=== PATIENT | female | born 1955 | race African-American/Black ===

== ENCOUNTER 2020-08-21 16:20 | Emergency (ER) | payer OTHER, SELFPAY ==
--- NOTE | ~2020-08-21 | XR_ITS ---
EXAMINATION: XR knee LT min 4V EXAM DATE: 08/21/2020 16:54 INDICATION: PAIN med/post Lt knee; hit knee on footboard 3 days ago. TECHNIQUE: Left knee frontal, crosstable lateral, orthogonal oblique projections for interpretation. There is no prior study for comparison. FINDINGS: No evidence osteochondral defect or joint body in the left knee joint. There are no acute fractures or dislocations identified. There is no subcutaneous gas. Mild soft tissue swelling arou nd the knee anteriorly medially and laterally. There are no radiopaque foreign bodies. IMPRESSION: 1. XR knee LT min 4V exam without acute osseous findings. 2. Soft tissue swelling. Reviewed, dictated and finalized at location A. ATRIC CLINICAL DIETICIAN
--- NOTE | 2020-08-21 16:22 | ED.EXTPRO ---
HPI - Extremity Problem General Chief complaint: Extremity Injury, Lower Stated complaint: lt knee injury Source: patient and RN notes reviewed Mode of arrival: ambulatory Limitations: no limitations Related Data Allergies Allergy/AdvReac Type Severity Reaction Status Date / Time No Known Allergies Allergy Verified 08/21/20 16:35 Review of Systems Review of Systems: Narrative: CONSTITUTIONAL: Denies malaise, chills, sweats, or fever. EYES: Denies visual changes, redness, or discharge. ENT: Denies rhinorrhea, congestion, sinus pain, otalgia or sore throat. CARDIOVASCULAR: Denies chest pain, palpitations, or edema. RESPIRATORY: Denies cough or dyspnea. GASTROINTESTINAL: Denies abdominal pain, nausea, vomiting, diarrhea, bloody, or mucous stools. GENITOURINARY: Denies dysuria or hematuria. SKIN: Denies rash or itching. MUSCULOSKELETAL: Denies back pain, joint pain, or myalgia. NEUROLOGIC: Denies numbness, weakness, or headache. PSYCHIATRIC: Denies anxiety or depression. All systems reviewed & are unremarkable except as noted in HPI and below PMFSH Family History Family History Other Cerebrovascular accident Diabetes mellitus Family history of malignant neoplasm Hypertension Social History Social History Smoking status: Never smoker Alcohol intake: never Comments At time of signature, agree with nursing past medical, surgical, social and family history. There is no relevant family history pertinent to the presenting complaint Exam Narrative: Exam Narrative: GENERAL: Well-appearing, well-nourished, and in no acute distress. HEAD: Normocephalic, atraumatic. EYES: PERRLA, conjunctivae clear NECK: Supple. CHEST: Speaks in full sentences. No respiratory distress. HEART: Regular rate and rhythm. Normal and equal peripheral pulses. EXTREMITIES: [Xxx] has normal strength and sensation, normal range of motion. No edema or ecchymosis. 5/5 strength with [xxx] flexion and extension. Normal sensation with sensitivity to light touch and pain. No point tenderness. No open wounds, no skin tenting, no devitalized tissue or atrophy, no trophic changes, no obvious deformity, alignment normal, nearby joints and structures intact. Distal pulses palpable and equal bilaterally, skin warm, dry, pink. Capillary refill less than 3 seconds. SKIN: Warm, dry, no rash. NEURO: Alert and oriented x3. PSYCH: Normal mood and affect Course Course Emergency Course: Patient is aware of diagnosis, understands and agrees to treatment plan. Anticipatory guidance given. Patient agrees to follow-up as directed and is aware of reasons to seek care at the emergency department. Portions of this record may have been created with voice recognition software Vital Signs Vital signs: Reviewed. MDM - Extremity (Nontraumatic) MDM Narrative Medical decision making narrative: Patients injury and/or pain is consistent with musculoskeletal etiology. No signs of neurological or vascular compromise on exam. Compartments and tissues are soft without signs of compartment syndrome. Pain is felt appropriate for further evaluation on an outpatient basis. Critical Care Time Critical Care Time Critical Care Time: No Discharge Plan Discharge Prescriptions: No Action (DME) lancets [OneTouch Delica Lancets] 30 gauge misc See Rx Instructions .ROUTE .MEDSUPPLY Qty: 100 RF: 4 blood sugar diagnostic [OneTouch Verio test strips] Strip See Rx Instructions .ROUTE .COMPLEX Qty: 100 RF: 4 hydrochlorothiazide 25 mg tablet 25 mg PO DAILY Qty: 90 RF: 1 metformin 500 mg tablet 500 mg PO BID Qty: 180 RF: 4 simvastatin 20 mg tablet See Rx Instructions .ROUTE .COMPLEX Qty: 90 RF: 4 meloxicam 7.5 mg tablet See Rx Instructions .ROUTE .COMPLEX Qty: 90 RF: 0 amlodipine 5 mg tablet See Rx Instructions .ROUTE .COMPLEX Qty: 90
[2020-08-21 16:25] VITALS: BP 133/72; PULSE 104; RESP 20; TEMP 36.7; O2SAT 100
[2020-08-21 16:35] VITALS: BP 133/72; PULSE 104; RESP 20; TEMP 36.7; O2SAT 100
--- NOTE | 2020-08-21 16:41 | ED.LOWEXIN ---
HPI - Extremity Injury (Lower) General Chief Complaint: Extremity Injury, Lower Stated Complaint: lt knee injury Time Seen by Provider: 08/21/20 16:32 Source: patient and RN notes reviewed Mode of arrival: ambulatory Limitations: no limitations History of Present Illness HPI Narrative: 65-year-old female presents with concern for left knee injury. Reports on Friday she hit her knee on the footboard of her bed causing pain. Reports no intervention for the pain. Reports today after working on her feet all day the pain worsened, and is radiating to the back of her left lower leg. She reports mild left knee swelling. She denies any calf swelling, calf redness, calf warmth. Denies history of blood clots or smoking. Reports a history of high blood pressure and diabetes. Denies any decreased strength, range of motion, sensation in the knee or leg. MD complaint: knee injury Related Data Allergies Allergy/AdvReac Type Severity Reaction Status Date / Time No Known Allergies Allergy Verified 08/21/20 16:35 Review of Systems Review of Systems: Narrative: CONSTITUTIONAL: Denies malaise, chills, sweats, or fever. CARDIOVASCULAR: Denies chest pain, palpitations, or edema. RESPIRATORY: Denies cough or dyspnea. SKIN: Denies lacerations, abrasions. Denies calf redness, swelling, warmth, tenderness MUSCULOSKELETAL: Reports left knee pain left posterior lower leg pain NEUROLOGIC: Denies numbness, weakness All systems reviewed & are unremarkable except as noted in HPI and below PMFSH Family History Family History Other Cerebrovascular accident Diabetes mellitus Family history of malignant neoplasm Hypertension Social History Social History Smoking status: Never smoker Alcohol intake: never Comments At time of signature, agree with nursing past medical, surgical, social and family history. There is no relevant family history pertinent to the presenting complaint Exam Narrative: Exam Narrative: GENERAL: Well-appearing, well-nourished, and in no acute distress. HEAD: Normocephalic, atraumatic. EYES: PERRLA, conjunctivae clear NECK: Supple. CHEST: Speaks in full sentences. No respiratory distress. HEART: Regular rate and rhythm. Normal and equal peripheral pulses. EXTREMITIES: Left knee has normal strength and sensation, normal range of motion. No edema or ecchymosis. 5/5 strength with knee flexion and extension. Normal sensation with sensitivity to light touch and pain. No point tenderness. No open wounds, no skin tenting, no devitalized tissue or atrophy, no trophic changes, no obvious deformity, alignment normal, nearby joints and structures intact. Distal pulses palpable and equal bilaterally, skin warm, dry, pink. Capillary refill less than 3 seconds. Left posterior lower leg has no warmth, swelling, erythema, tenderness SKIN: Warm, dry, no rash. NEURO: Alert and oriented x3. PSYCH: Normal mood and affect Course Course Emergency Course: Discussed with patient limited diagnostic capability at the [facility], discussed symptoms of blood clot and need for further work-up in the emergency room. Through shared decision-making, patient does not choose to seek further evaluation in the emergency room, rather to evaluate knee pain. Patient understands reasons to go the emergency department and follow-up with her primary care provider. Patient is aware of diagnosis, understands and agrees to treatment plan. Anticipatory guidance given. Patient agrees to follow-up as directed and is aware of reasons to seek care at the emergency department. Portions of this record may have been created with voice recognition software Vital Signs Vital signs: Vital Signs Temperature 98.0 F 08/21/20 16:25 Pulse Rate 104 H 08/21/20 16:25 Respiratory Rate 20 08/21/20 16:25 Blood Pressure 133/72 08/21/20 16:25 Pulse Oximetry 1
== END 2020-08-21 17:10 | disposition home or self-care (01) ==
PROVIDERS: Emergency Provider Nurse Practitioner; PCP Internal Medicine
DX: S89.92XA Unspecified injury of left lower leg, initial encounter (principal); W22.8XXA Striking against or struck by other objects, initial encounter; I10 Essential (primary) hypertension; E11.9 Type 2 diabetes mellitus without complications
CPT/HCPCS: 73564; 99213; G0463

== ENCOUNTER 2020-11-03 01:25 | Emergency (ER) | payer OTHER, SELFPAY ==
--- NOTE | ~2020-11-03 | XR_ITS ---
EXAMINATION: XR chest 1V portable DATE: 11/03/2020 01:58 INDICATION: Midsternal chest pain TECHNIQUE: frontal view of the chest was obtained. COMPARISON: Chest radiograph dated 10/21/2018 FINDINGS: The lungs remain clear with no focal airspace opacities, pulmonary edema, pleural effusion or pneumot horax. The cardiomediastinal silhouette is normal. Mild thoracic spondylosis. IMPRESSION: 1. No acute cardiopulmonary disease. Reviewed, dictated and finalized at location A.
[2020-11-03 01:31] VITALS: BP 177/88; PULSE 79; RESP 18; TEMP 36.7; O2SAT 100
--- NOTE | 2020-11-03 01:45 | ECG_ITS ---
Measurements Intervals [place] Rate: 78 P: 62 OR: 160 QRS: 16 QRSD: 87 T: 46 QT: 366 QTc: 417 Interpretive Statements SINUS RHYTHM CONSIDER INFERIOR INFARCT, AGE INDETERMINATE BASELINE ARTIFACT- V4-V6 ABNORMAL ECG Electronically Signed On 11-03-2020 6:46:37 CDT by Good Ramos D.O.
[2020-11-03 01:57] LABS: Basophils Percent Auto 0.5 % (0.2-1.2); Eosinophils Absolute Auto 0.6 K/mm3 (0-0.3); Eosinophils Percent Auto 6.4 % (0-4.4); Hematocrit 35.6 % (37.0-47.0); Immature Granulocyte Absolute 0.04 K/mm3 (0.00-0.031); Immature Granulocyte Percent A 0.5 % (0-0.5); Lymphocytes Absolute Auto 2.79 K/mm3 (0.9-3.2); Lymphocytes Percent Auto 32.6 % (18.3-44.2); Mean Corpuscular HGB Conc 30.9 g/dl (32-36); Mean Corpuscular Hemoglobin 22.6 pg (26-34); Mean Corpuscular Volume 73.3 fl (80-100); Mean Platelet Volume 11.6 fl (7.4-10.4); Monocytes Absolute Auto 0.5 K/mm3 (0.1-0.6); Monocytes Percent Auto 5.5 % (2.6-8.5); Neutrophils Absolute Auto 4.7 K/mm3 (1.3-6.7); Neutrophils Percent Auto 54.5 % (45.5-73.1); Platelet Count Result 252 k/mm3 (150-375); Red Blood Count 4.86 M/mm3 (4.2-5.4); Red Cell Distribution Width 15.4 % (11.5-14.5); White Blood Count 8.6 K/mm3 (4.5-10.0)
[2020-11-03] MEDS: ASPIRIN 81 MG CHEWABLE TABLET 324 MG PO (02:03)
[2020-11-03 02:11] LABS: INR 0.9; Prothrombin Time 12.8 Seconds (11.1-14.7)
[2020-11-03 02:12] LABS: Partial Thromboplastin Time 27.5 SECONDS (22.3-36.8)
[2020-11-03 02:14] LABS: D Dimer 0.28 ug/mL (<0.48)
[2020-11-03 02:15] LABS: Alanine Aminotransferase 15 U/L (4-35); Albumin Level 4.6 g/dL (3.5-5.1); Alkaline Phosphatase 68 U/L (38-126); Anion Gap 7 mmol/L (8-16); Aspartate Amino Transferase 26 U/L (14-36); Bilirubin,Total 0.1 mg/dL (0.2-1.3); Blood Urea Nitrogen 17 mg/dL (7-17); Calcium 10.1 mg/dL (8.4-10.2); Carbon Dioxide 31 mmol/L (22-30); Chloride 103 mmol/L (98-107); Estimated CRCL calculation 58 ml/min; Estimated Glomerular Filt Rate > 60; Glucose 126 mg/dL (65-105); Lipase 86 U/L (23-300); Potassium 3.5 mmol/L (3.4-5.0); Sodium 141 mmol/L (137-145)
[2020-11-03 02:27] LABS: NT Pro B Type Natriuretic Pept 44 pg/mL (5-100); Troponin I < 0.012 ng/mL (0.000-0.034)
--- NOTE | 2020-11-03 02:35 | ED.GENADULT ---
HPI - General Adult General Chief complaint: Chest Pain Stated complaint: back pain Time Seen by Provider: 11/03/20 01:36 History of Present Illness HPI narrative: Patient 65-year-old female presents to emergency department with chief complaint of back pain and chest pain. Patient reports that she has been having discomfort in her back more on her left shoulder blade area radiates to her chest. Patient states this been going on for several days and reports that tonight it got a little bit worse and would not allow her to sleep. Patient reports that the pain is not improved by anything nor is it worsened by anything. The patient reports she is a diabetic and hypertensive reports that she has had a stress test a few years ago that that was negative and did not require a cardiac catheterization afterwards Related Data Allergies Allergy/AdvReac Type Severity Reaction Status Date / Time No Known Allergies Allergy Verified 11/03/20 01:35 Review of Systems Review of Systems: Narrative: A 10 system review of systems was completed on the patient and is negative except for what is stated in the HPI. Nursing and ancillary documentation was reviewed. [facility] Family History Family History Other Cerebrovascular accident Diabetes mellitus Family history of malignant neoplasm Hypertension Social History Social History Smoking status: Never smoker Alcohol intake: never Gender identity (if verbalized by the patient): Female Exam Narrative: Exam Narrative: GENERAL: Well-appearing, well-nourished, and in no acute distress. HEAD: Normocephalic, atraumatic. EYES: PERRLA and EOMI. ENT: Nares clear, no rhinorrhea or epistaxis. Mucous membranes moist. NECK: Supple. CHEST: Clear to auscultation. No respiratory distress. HEART: Regular rate and rhythm. No murmur heard. Normal peripheral pulses. ABDOMEN: Soft, nontender, nondistended, normal active bowel sounds. EXTREMITIES: Normal range of motion. No edema. SKIN: Warm, dry, no rash. NEURO: No focal deficits. Alert and oriented x3. PSYCH: Normal mood and affect. Course Vital Signs Vital signs: Vital Signs Temperature 36.7 C 11/03/20 01:31 Pulse Rate 79 11/03/20 01:31 Respiratory Rate 18 11/03/20 01:31 Blood Pressure 177/88 H 11/03/20 01:31 Pulse Oximetry 100 11/03/20 01:31 Temperature 36.7 C 11/03/20 01:31 Pulse Rate 63 11/03/20 03:41 Respiratory Rate 20 11/03/20 03:41 Blood Pressure 125/69 11/03/20 03:41 Pulse Oximetry 99 11/03/20 03:41 Medical Decision Making Vital Signs Vital Signs: Vital Signs Temperature 36.7 C 11/03/20 01:31 Pulse Rate 79 11/03/20 01:31 Respiratory Rate 18 11/03/20 01:31 Blood Pressure 177/88 H 11/03/20 01:31 Pulse Oximetry 100 11/03/20 01:31 Temperature 36.7 C 11/03/20 01:31 Pulse Rate 63 11/03/20 03:41 Respiratory Rate 20 11/03/20 03:41 Blood Pressure 125/69 11/03/20 03:41 Pulse Oximetry 99 11/03/20 03:41 Lab Data Result diagrams: 11/03/20 01:49 11/03/20 01:49 Labs: Lab Results 11/03/20 11/03/20 11/03/20 Range/Units 01:49 01:49 01:49 WBC 8.6 (4.5-10.0) K/mm3 RBC 4.86 (4.2-5.4) M/mm3 Hgb 11.0 L (12.0-15.0) g/dL Hct 35.6 L (37.0-47.0) % MCV 73.3 L (80-100) fl MCH 22.6 L (26-34) pg MCHC 30.9 L (32-36) g/dl RDW 15.4 H (11.5-14.5) % Plt Count 252 (150-375) k/mm3 MPV 11.6 H (7.4-10.4) fl Immature Gran % (Auto) 0.5 (0-0.5) % Neut % (Auto) 54.5 (45.5-73.1) % Lymph % (Auto) 32.6 (18.3-44.2) % [place] % (Auto) 5.5 (2.6-8.5) % Eos % (Auto) 6.4 H (0-4.4) % Baso % (Auto) 0.5 (0.2-1.2) % Lymph # (Auto) 2.79 (0.9-3.2) K/mm3 [place] # (Auto) 0.5 (0.1-0.6) K/mm3 Eos # (Auto) 0.6 H (0-0.3) K/mm3 Baso # (Auto) 0.0 (0.0-0.1)
[2020-11-03] MEDS: MORPHINE SULFATE (*CRX) 4 MG/ML INJ IV PUSH (02:47)
[2020-11-03 02:57] VITALS: BP 129/80; PULSE 70; RESP 20; O2SAT 99
[2020-11-03 03:41] VITALS: BP 125/69; PULSE 63; RESP 20; O2SAT 99
[2020-11-03 05:10] LABS: Troponin I < 0.012 ng/mL (0.000-0.034)
[2020-11-03 05:20] VITALS: BP 129/64; PULSE 72; RESP 15; O2SAT 100
== END 2020-11-03 05:28 | disposition home or self-care (01) ==
PROVIDERS: Emergency Provider Emergency Medicine; PCP Internal Medicine
DX: R07.89 Other chest pain (principal); M54.6 Pain in thoracic spine
CPT/HCPCS: 36415; 71045; 80053; 83690; 83880; 84484; 85025; 85380; 85610; 85730; 93005; 96374; 99284; A9270; J2270

== ENCOUNTER 2021-07-18 18:44 | Emergency (ER) | payer OTHER, SELFPAY ==
--- NOTE | ~2021-07-18 | XR_ITS ---
XR chest 2V DATE: 07/18/2021 19:32 INDICATION: Midsternal chest pain, upper back pain. Covid-positive on 06/27/2021 TECHNIQUE: PA and lateral views COMPARISON: 11/03/2020 portable AP chest FINDINGS: Normal heart size. No hilar or mediastinal enlargement. Moderate bilateral pulmonary hyperinflation. No pulmonary infiltrate or consolidation, pleural effusi on or pulmonary vascular congestion or pneumothorax. Degenerative spurring of the thoracic spine. IMPRESSION: Bilateral hyperinflation. No active cardiopulmonary disease Reviewed, dictated and finalized at location A. RONMENTAL PROJECT MANAGER
[2021-07-18 18:45] VITALS: BP 173/76; PULSE 90; RESP 20; TEMP 35.7; O2SAT 100
--- NOTE | 2021-07-18 18:49 | ECG_ITS ---
Measurements Intervals [place] Rate: 91 P: 53 [place]: 142 QRS: 7 QRSD: 89 T: 49 QT: 357 QTc: 441 Interpretive Statements SINUS RHYTHM VOLTAGE CRITERIA FOR LVH CONSIDER INFERIOR INFARCT, AGE INDETERMINATE BASELINE ARTIFACT- I, II, III, AVR ABNORMAL ECG Electronically Signed On 07-18-2021 20:26:33 BIOANALYST by Good Ramos D.O.
[2021-07-18 19:10] LABS: Basophils Percent Auto 0.3 % (0.2-1.2); Eosinophils Absolute Auto 0.6 K/mm3 (0-0.3); Hematocrit 33.4 % (37.0-47.0); Hemoglobin 10.6 g/dL (12.0-15.0); Immature Granulocyte Absolute 0.03 K/mm3 (0.00-0.031); Immature Granulocyte Percent A 0.3 % (0-0.5); Lymphocytes Absolute Auto 2.63 K/mm3 (0.9-3.2); Lymphocytes Percent Auto 27.6 % (18.3-44.2); Mean Corpuscular HGB Conc 31.7 g/dl (32-36); Mean Corpuscular Hemoglobin 22.9 pg (26-34); Mean Corpuscular Volume 72.1 fl (80-100); Mean Platelet Volume 10.2 fl (7.4-10.4); Monocytes Absolute Auto 0.5 K/mm3 (0.1-0.6); Monocytes Percent Auto 5.6 % (2.6-8.5); Neutrophils Absolute Auto 5.8 K/mm3 (1.3-6.7); Neutrophils Percent Auto 60.2 % (45.5-73.1); Platelet Count Result 269 k/mm3 (150-375); Red Blood Count 4.63 M/mm3 (4.2-5.4); Red Cell Distribution Width 16.6 % (11.5-14.5); White Blood Count 9.5 K/mm3 (4.5-10.0)
[2021-07-18 19:20] LABS: Partial Thromboplastin Time 27.3 SECONDS (22.3-36.8); Prothrombin Time 12.7 Seconds (11.1-14.7)
[2021-07-18 19:26] LABS: Alanine Aminotransferase 18 U/L (4-35); Albumin Level 4.6 g/dL (3.5-5.1); Alkaline Phosphatase 70 U/L (38-126); Anion Gap 11 mmol/L (8-16); Aspartate Amino Transferase 26 U/L (14-36); Bilirubin,Total 0.2 mg/dL (0.2-1.3); Blood Urea Nitrogen 16 mg/dL (7-17); Calcium 9.9 mg/dL (8.4-10.2); Carbon Dioxide 27 mmol/L (22-30); Chloride 101 mmol/L (98-107); Estimated CRCL calculation 64 ml/min; Estimated Glomerular Filt Rate > 60; Glucose 167 mg/dL (65-110); Lipase 83 U/L (23-300); Potassium 3.6 mmol/L (3.4-5.0); Sodium 139 mmol/L (137-145)
[2021-07-18 19:36] LABS: Troponin I < 0.012 ng/mL (0.000-0.034)
[2021-07-18 22:08] VITALS: BP 167/81; PULSE 74; RESP 18; O2SAT 100
[2021-07-18 22:33] LABS: Troponin I < 0.012 ng/mL (0.000-0.034)
--- NOTE | 2021-07-18 23:13 | ED.GENADULT ---
HPI - General Adult General Chief complaint: Chest Pain Stated complaint: back pain radiates to chest Time Seen by Provider: 07/18/21 22:50 History of Present Illness HPI narrative: Patient 66-year-old female presents emerged department chief complaint of back pain radiating to the chest. The patient states the pain began yesterday reports been intermittent states that it starts in the back and radiates to her chest. The patient states the pain is worse with movement and improved with rest. The patient reports she has history of hypertension diabetes reflux the patient reports been a few years since her last stress test patient states that the pain is currently gone and was last present while she was in the waiting room. Related Data Allergies Allergy/AdvReac Type Severity Reaction Status Date / Time No Known Allergies Allergy Verified 07/18/21 22:10 Review of Systems Review of Systems: A 10 system review of systems was completed on the patient and is negative except for what is stated in the HPI. Nursing and ancillary documentation was reviewed. [facility] Family History Family History Other Cerebrovascular accident Diabetes mellitus Family history of malignant neoplasm Hypertension Social History Social History Smoking status: Never smoker Alcohol intake: never Gender identity (if verbalized by the patient): Female Exam Narrative: GENERAL: Well-appearing, well-nourished, and in no acute distress. HEAD: Normocephalic, atraumatic. EYES: PERRLA and EOMI. ENT: Nares clear, no rhinorrhea or epistaxis. Mucous membranes moist. NECK: Supple. CHEST: Clear to auscultation. No respiratory distress. HEART: Regular rate and rhythm. No murmur heard. Normal peripheral pulses. ABDOMEN: Soft, nontender, nondistended, normal active bowel sounds. EXTREMITIES: Normal range of motion. No edema. SKIN: Warm, dry, no rash. NEURO: No focal deficits. Alert and oriented x3. PSYCH: Normal mood and affect. Course Course Emergency Course: EKG is sinus rhythm rate of [address] elevation or ST depression Vital Signs Vital signs: Vital Signs Temperature 35.7 C L 07/18/21 18:45 Pulse Rate 90 07/18/21 18:45 Respiratory Rate 20 07/18/21 18:45 Blood Pressure 173/76 H 07/18/21 18:45 Pulse Oximetry 100 07/18/21 18:45 Temperature 35.7 C L 07/18/21 18:45 Pulse Rate 74 07/18/21 22:08 Respiratory Rate 18 07/18/21 22:08 Blood Pressure 167/81 H 07/18/21 22:08 Pulse Oximetry 100 07/18/21 22:08 Medical Decision Making Vital Signs Vital Signs: Vital Signs Temperature 35.7 C L 07/18/21 18:45 Pulse Rate 90 07/18/21 18:45 Respiratory Rate 20 07/18/21 18:45 Blood Pressure 173/76 H 07/18/21 18:45 Pulse Oximetry 100 07/18/21 18:45 Temperature 35.7 C L 07/18/21 18:45 Pulse Rate 74 07/18/21 22:08 Respiratory Rate 18 07/18/21 22:08 Blood Pressure 167/81 H 07/18/21 22:08 Pulse Oximetry 100 07/18/21 22:08 Lab Data Result diagrams: 07/18/21 19:02 07/18/21 19:02 Labs: Lab Results 07/18/21 07/18/21 07/18/21 Range/Units 19:02 19:02 19:02 WBC 9.5 (4.5-10.0) K/mm3 RBC 4.63 (4.2-5.4) M/mm3 Hgb 10.6 L (12.0-15.0) g/dL Hct 33.4 L (37.0-47.0) % MCV 72.1 L (80-100) fl MCH 22.9 L (26-34) pg MCHC 31.7 L (32-36) g/dl RDW 16.6 H (11.5-14.5) % Plt Count 269 (150-375) k/mm3 MPV 10.2 (7.4-10.4) fl Immature Gran % (Auto) 0.3 (0-0.5) % Neut % (Auto) 60.2 (45.5-73.1) % Lymph % (Auto) 27.6 (18.3-44.2) % [place] % (Auto) 5.6 (2.6-8.5) % Eos % (Auto) 6.0 H (0-4.4) % Baso % (Auto) 0.3 (0.2-1.2) % Lymph # (Auto) 2.63 (0.9-3.2) K/mm3 [place] # (Auto) 0.5 (0.1-0.6) K/mm3 Eos # (Auto) 0.6 H (0-0.3) K/mm3 Baso # (Auto) 0.0 (0.0-0.1) K/mm3 Abs Immat
[2021-07-18 23:33] VITALS: BP 149/86; PULSE 77; RESP 18; O2SAT 100
== END 2021-07-18 23:34 | disposition home or self-care (01) ==
PROVIDERS: Emergency Medicine; Emergency Provider Emergency Medicine; PCP Internal Medicine
DX: R07.89 Other chest pain (principal)
CPT/HCPCS: 36415; 71046; 80053; 83690; 84484; 85025; 85610; 85730; 93005; 99284

== ENCOUNTER → 2021-10-29 16:02 | Outpatient (CLI) | payer OTHER, SELFPAY ==
--- NOTE | ~2021-10-29 | XR_ITS ---
EXAM: XR lumbar spine min 4V HISTORY: M54.9 - Dorsalgia, unspecified COMPARISON: None available FINDINGS: 4 nonrib-bearing lumbar-type vertebral bodies. Likely sacralization of L5. Pedicles intact . 4 mm anterolisthesis of L3 on L4. Vertebral body heights preserved. Moderate disc space narrowing a t L3-4. Remaining disc spaces are maintained. Lower lumbar facet sclerosis. No pars defect. IMPRESSION: Grade 1 anterolisthesis of L3 on L4 likely due to facet arthropathy. Moderate degenerative disc disea se at L3-4. Multilevel lower lumbar facet arthropathy. Spinal level numbering anomaly, described abov e. Reviewed, dictated and finalized at location K. IMPRESSION: Grade 1 anterolisthesis of L3 on L4 likely due to facet arthropathy. Moderate d egenerative disc disease at L3-4. Multilevel lower lumbar facet arthropathy. Sp inal level numbering anomaly, described above.
== END ==
PROVIDERS: PCP Family Medicine; Visit Provider Family Medicine
DX: M51.36 Other intervertebral disc degeneration, lumbar region (principal)
CPT/HCPCS: 72110

== ENCOUNTER 2022-01-09 07:19 | Outpatient (CLI) | payer OTHER, SELFPAY ==
--- NOTE | 2022-01-26 22:40 | WPDHOMESLEEP ---
Sleep Study - Home Unattended Date of Study: 01/09/22 Ordering Provider: Sg Young DO Interpreting Provider: Bertha Anthony DO Home Sleep Study Type: Watch PAT Height: 1.7 m Weight: 93.894 kg Body Mass Index: 32.4 Neck Circumference (inches): 14 Hunter: 18 Reason for Sleep Study Daytime hypersomnia Sleep History The patient is a 66-year-old female with hypertension, GERD and type 2 diabetes had a sleep study ordered by her primary care physician for evaluation of sleep apnea. 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 The patient denies awakening from sleep short of breath. She occasionally awakens at night with heartburn, belching or cough. She frequently snores. She constantly has trouble sleeping when she has a cold. She denies waking up gasping for air throughout the night. She frequently has breathing problems at night observed by herself or others. He frequently sweats excessively at night. She denies having heart palpitations or irregular heartbeats throughout the night. He frequently falls asleep during the day if she sits down. She occasionally falls asleep while driving. She denies sleep paralysis and cataplexy. She occasionally has trouble at school or work due to sleepiness. He frequently experiences vivid dreamlike scenes upon awakening or falling asleep. she rarely has nightmares. She constantly remembers her dreams. She occasionally has thoughts racing through her mind. She denies feeling sad or depressed. She occasionally has anxiety. She frequently has muscular tension. She denies noticing parts of her body jerk. She denies kicking during the night. She denies having crawling and aching feelings in her legs but occasionally has leg pain during the night. She occasionally awakens with morning jaw pain. She is constantly bothered by pain during the day and frequently awakened by pain during the night. She constantly wakes up feeling stiff in morning. She constantly wakes up with sore achy muscles. She constantly wakes up with pain in the neck, spine or other joints. She goes to bed at 9:00 p.m. on weekdays and 10:00 p.m. on the weekends. He can take her 15-45 minutes to fall asleep. She wakes up 3-4 times throughout the night to urinate. She is able fall back asleep within 5-20 minutes. She wakes up at 4:30 a.m. on weekdays. She typically gets 4-5 hours of sleep per night. She will stay in bed for 15-20 minutes after waking up in the morning on the weekends. She currently lives with her 16-year-old grandson. She does not consume any caffeinated beverages within 2 hours of bedtime. She does not engage in physical exercise before bedtime. She will watch television and occasionally read before falling asleep. She will occasionally take naps in the afternoon or the evening but they are not refreshing. She drinks 1 caffeinated beverage every other day. She denies tobacco, alcohol and recreational drug use. [facility] Past Medical History Medical History Benign essential hypertension Gastroesophageal reflux disease without esophagitis Type 2 diabetes mellitus without complication, without long-term current use of insulin Family History Family History Other Cerebrovascular accident Diabetes mellitus Family history of malignant neoplasm Hypertension Social History Social History Smoking status: Never smoker Alcohol intake: never Gender identity (if verbalized by the patient): Female Medications Home Medications Medication Instructions Recorded Confirmed Type lancets 30 gauge (OneTouch Delsanta #100 ea 07/27/19 01/23/21 Rx Lancets) blood sugar diagnostic (OneTouch See Rx Instructions .Route 03/27/21 Rx Verio test strips) .COMPLEX #100 ea hydrochlorothiazide 25 mg tablet 25 mg PO DAILY #90 ea 03/27
[2022-01-26 23:01] VITALS: BMI 32.4
== END 2022-01-10 12:35 | disposition home or self-care (01) ==
LOC: ANHCSM 07:22
PROVIDERS: PCP Family Medicine; Visit Provider Family Medicine
DX: G47.33 Obstructive sleep apnea (adult) (pediatric) (principal)
CPT/HCPCS: 95800

== ENCOUNTER 2022-02-06 16:48 | Emergency (ER) | payer OTHER, SELFPAY ==
--- NOTE | ~2022-02-06 | XR_ITS ---
EXAMINATION: XR knee LT 3V DATE: 02/06/2022 17:42 INDICATION: Left knee pain. TECHNIQUE: 3 views of left knee on 4 radiographs were obtained. COMPARISON: Left knee radiographs 08/21/2020 FINDINGS: Bone alignment is normal. No fracture. There is mild tricompartmental osteoarthritis. No kn ee joint effusion. IMPRESSION: 1. Mild left knee osteoarthritis. Reviewed, dictated and finalized at location A.
--- NOTE | ~2022-02-06 | XR_ITS ---
EXAMINATION: XR ankle RT min 3V DATE: 02/06/2022 17:42 INDICATION: Right ankle swelling. TECHNIQUE: 4 views of right ankle were obtained. COMPARISON: Right ankle radiographs 02/19/2004 FINDINGS: Bone alignment is normal. No fracture. There is mild midfoot osteoarthritis. There are enth esophytes at the posterior and plantar aspects of calcaneal tuberosity. IMPRESSION: 1. Mild polyarticular osteoarthritis. Reviewed, dictated and finalized at location A.
[2022-02-06 16:55] VITALS: BP 138/95; PULSE 76; RESP 16; TEMP 36.2; O2SAT 100
--- NOTE | 2022-02-06 17:05 | ED.LOWEXIN ---
HPI - Extremity Injury (Lower) General Chief Complaint: Extremity Injury, Lower Stated Complaint: right foot/leg swelling, left knee pain Time Seen by Provider: 02/06/22 17:05 Source: patient, RN notes reviewed and old records reviewed Mode of arrival: ambulatory Limitations: no limitations History of Present Illness HPI Narrative: 66-year-old female who presents to [facility] care with complaints of Related Data Allergies Allergy/AdvReac Type Severity Reaction Status Date / Time No Known Allergies Allergy Verified 12/11/21 10:28 Review of Systems Review of Systems: CONSTITUTIONAL: Denies fever, chills, or sweats. EYES: Denies visual changes, redness, or discharge. ENT: Denies rhinorrhea, congestion, sore throat, or otalgia. CARDIOVASCULAR: Denies chest pain, palpitations, or edema. RESPIRATORY: Denies cough or dyspnea. GASTROINTESTINAL: Denies abdominal pain, nausea, vomiting, or diarrhea. GENITOURINARY: Denies dysuria or hematuria. SKIN: Denies rash or itching. MUSCULOSKELETAL: Denies back pain, joint pain, or myalgia. NEUROLOGIC: Denies headache, numbness, or weakness. PSYCHIATRIC: Denies anxiety or depression. All systems reviewed & are unremarkable except as noted in HPI and below PMFSH Past Medical History Medical History (Updated 02/07/22 @ 21:11 by Saundra Antonio NP) Arthritis Benign essential hypertension Gastroesophageal reflux disease without esophagitis Hyperlipidemia ROMELIA (obstructive sleep apnea) Type 2 diabetes mellitus without complication, without long-term current use of insulin Surgical History Surgical History (Updated 02/06/22 @ 17:23 by Saundra Antonio NP) H/O hemorrhoidectomy H/O: hysterectomy History of bunionectomy of both great toes Family History Family History Other Cerebrovascular accident Diabetes mellitus Family history of malignant neoplasm Hypertension Social History Social History (Updated 02/07/22 @ 21:07 by Saundra Antonio NP) Smoking status: Never smoker Alcohol intake: never Substance use: never Substance use type: does not use Living arrangements: with family Gender identity (if verbalized by the patient): Female Exam Narrative: GENERAL: Well-appearing, well-nourished, and in no acute distress. HEAD: Normocephalic, atraumatic. EYES: PERRLA and EOMI. ENT: Nares clear, no rhinorrhea or epistaxis. Mucous membranes moist. NECK: Supple. CHEST: Clear to auscultation. No respiratory distress. HEART: Regular rate and rhythm. No murmur heard. Normal peripheral pulses. ABDOMEN: Soft, nontender, nondistended, normal active bowel sounds. EXTREMITIES: Normal range of motion. No edema. SKIN: Warm, dry, no rash. NEURO: No focal deficits. Alert and oriented x3. Course Course Level of Care: Express Care Visit Vital Signs Vital signs: Vital Signs Temperature 36.2 C L 02/06/22 16:55 Pulse Rate 76 02/06/22 16:55 Respiratory Rate 16 02/06/22 16:55 Blood Pressure 138/95 H 02/06/22 16:55 Pulse Oximetry 100 02/06/22 16:55 Temperature 36.2 C L 02/06/22 16:55 Pulse Rate 76 02/06/22 16:55 Respiratory Rate 16 02/06/22 16:55 Blood Pressure 138/95 H 02/06/22 16:55 Pulse Oximetry 100 02/06/22 16:55 MDM - Extremity Injury (Lower) Differential Diagnosis Differential diagnosis: Likely acute internal derangement of knee Medical Records Attestation: I reviewed the patient's medical records. Critical Care Time Critical Care Time Critical Care Time: No Discharge Plan Discharge Clinical Impression: Osteoarthritis of left knee, Pain and swelling of right ankle Patient Disposition: Home, Self-Care Condition: Stable Instructions: Antibiotic Form, Arthralgia (ED), Swollen Joint (ED) Additional Instructions: Elastic wrap or orthopedic splint as directed for comfort for the next 5-7 days Tylenol for lesser pain Use naproxen 500 mg twice daily with
--- NOTE | 2022-02-06 17:11 | ED.LOWEXIN ---
HPI - Extremity Injury (Lower) General Chief Complaint: Extremity Injury, Lower Stated Complaint: right foot/leg swelling, left knee pain Time Seen by Provider: 02/06/22 17:05 Source: patient, RN notes reviewed and old records reviewed Mode of arrival: ambulatory Limitations: no limitations History of Present Illness HPI Narrative: 66-year-old female who presents to [facility] care with complaints of pain to her right ankle and also to her left knee for the past 2 to 3 weeks duration patient states she has been taking Tylenol for her pain, has not used any type of topical pain medication to areas of discomfort. Patient denies any recent injuries to her left knee or right ankle denies any falls. Patient had previously been on Mobic and doctor changed her to naproxen twice daily but has been without that medication for about a month. 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 MD complaint: other (right ankle pain and left knee pain with no injury) Onset (ago): week(s) (2-3 weeks) Severity scale (1-10): 5 Treatments prior to arrival: other (Tylenol) Related Data Allergies Allergy/AdvReac Type Severity Reaction Status Date / Time No Known Allergies Allergy Verified 12/11/21 10:28 Review of Systems Review of Systems: CONSTITUTIONAL: Denies fever, chills, or sweats. EYES: Denies visual changes, redness, or discharge. ENT: Denies rhinorrhea, congestion, sore throat, or otalgia. CARDIOVASCULAR: Denies chest pain, palpitations, or edema. RESPIRATORY: Denies cough or dyspnea. GASTROINTESTINAL: Denies abdominal pain, nausea, vomiting, or diarrhea. GENITOURINARY: Denies dysuria or hematuria. SKIN: Denies rash or itching. MUSCULOSKELETAL: Denies back pain, positive to right lateral ankle pain and left knee pain, or myalgia. NEUROLOGIC: Denies headache, numbness, or weakness. PSYCHIATRIC: Denies anxiety or depression. All systems reviewed & are unremarkable except as noted in HPI and below PMFSH Past Medical History Medical History (Updated 02/07/22 @ 21:11 by Saundra Antonio NP) Arthritis Benign essential hypertension Gastroesophageal reflux disease without esophagitis Hyperlipidemia ROMELIA (obstructive sleep apnea) Type 2 diabetes mellitus without complication, without long-term current use of insulin Surgical History Surgical History (Updated 02/06/22 @ 17:23 by Saundra Antonio NP) H/O hemorrhoidectomy H/O: hysterectomy History of bunionectomy of both great toes Family History Family History Other Cerebrovascular accident Diabetes mellitus Family history of malignant neoplasm Hypertension Social History Social History (Updated 02/07/22 @ 21:07 by Saundra Antonio NP) Smoking status: Never smoker Alcohol intake: never Substance use: never Substance use type: does not use Living arrangements: with family Gender identity (if verbalized by the patient): Female Comments At time of signature, agree with nursing past medical, surgical, social and family history. There is no relevant family history pertinent to the presenting complaint Exam Narrative: GENERAL: Well-appearing, well-nourished, and in no acute distress. HEAD: Normocephalic, atraumatic. EYES: PERRLA and EOMI. ENT: Nares clear, no rhinorrhea or epistaxis. Mucous membranes moist.TM's normal with good light reflex, throat pink with no lesions or exudates or tonsil swelling NECK: Supple. CHEST: Clear to auscultation. No respiratory distress.SAO2 100% on room air HEART: Regular rate and rhythm. No murmur heard. Normal peripheral pulses. ABDOMEN: Soft, nontender, nondistended, normal active bowel sounds EXTREMITIES: Normal range of motion. No edema.Exception noted to pain and discomfort to right ankle with mild lateral ankle edema, increase pain with weight bearing and with certain movement. Left knee pain generalized with no acute edema, full mobility noted a
== END 2022-02-06 18:11 | disposition home or self-care (01) ==
PROVIDERS: Emergency Provider Registered Nurse; PCP Family Medicine
DX: M17.12 Unilateral primary osteoarthritis, left knee (principal); M25.571 Pain in right ankle and joints of right foot; M25.471 Effusion, right ankle; M19.90 Unspecified osteoarthritis, unspecified site; I10 Essential (primary) hypertension; K21.9 Gastro-esophageal reflux disease without esophagitis; E78.5 Hyperlipidemia, unspecified; G47.33 Obstructive sleep apnea (adult) (pediatric); E11.9 Type 2 diabetes mellitus without complications
CPT/HCPCS: 73562; 73610; 99214; G0463

== ENCOUNTER 2022-02-17 17:47 | Emergency (ER) | payer OTHER, SELFPAY ==
--- NOTE | ~2022-02-17 | CT_ITS ---
EXAMINATION: CT brain wo con DATE: 02/17/2022 18:40 INDICATION: syncope . TECHNIQUE: Computed tomography (CT) of the head was performed without intravenous contrast. The mA wa s adjusted according to patient size. Iterative reconstruction technique was employed. The dose-lengt h product was 605.33 mGy-cm. COMPARISON: None FINDINGS: No acute intracranial hemorrhage or extra-axial fluid collection. No hydrocephalus, mass, or herniation. No acute ischemic infarct. Unremarkable dural venous sinus attenuation. No acute osseous abnormality. The aerated spaces are clear. Mild chronic white matter change. Bilateral basal ganglia calcification. Atherosclerotic intracranial calcifications IMPRESSION: No acute intracranial process. Reviewed, dictated and finalized at location K.
--- NOTE | ~2022-02-17 | XR_ITS ---
EXAMINATION: XR chest 2V Exam Date/Time: 02/17/2022 18:35 CDT HISTORY: syncope Comparison: 07/18/2021. RESULT: Lines, tubes, and devices: None. Lungs and pleura: Clear. Cardiomediastinal silhouette: Stable. Other: No acute osseous or upper abdominal finding. IMPRESSION: No acute cardiopulmonary process. Reviewed, dictated and finalized at location K.
[2022-02-17 17:47] VITALS: BP 132/86; PULSE 82; RESP 16; TEMP 36.7; O2SAT 100
--- NOTE | 2022-02-17 17:53 | ECG_ITS ---
Measurements Intervals [place] Rate: 80 P: 47 ID: [id number] QRS: 15 QRSD: 98 T: 37 QT: 385 QTc: 444 Interpretive Statements SINUS RHYTHM POSSIBLE INFERIOR MYOCARDIAL INFARCTION , OLD WITH POSTERIOR EXTENSION [30 ms Q WAVE IN II/aVFPROMINENT R WAVE IN V1/ COMPARED TO ECG 07/18/2021 18:54:47 NO SIGNIFICANT CHANGES Electronically Signed On 02-18-2022 16:52:02 CDT by Yvon Del Castillo M.D.
[2022-02-17 17:59] VITALS: PULSE 79
--- NOTE | 2022-02-17 18:07 | ED.GENADULT ---
HPI - General Adult General Chief complaint: Syncope Stated complaint: syncopal History of Present Illness HPI narrative: 66-year-old female presenting to the emergency department for evaluation after having a possible syncopal episode at home. Patient states she had just prepared dinner and she was sitting at the kitchen table when she states I just went to sleep'. Patient states that she then woke up and was having some stomach discomfort. Patient states that she often does have daytime sleepiness and does frequently fall asleep, sometimes at the kitchen table. Patient states she was having some diaphoresis and some diffuse abdominal pain when she woke up. Patient was concerned so she called EMS for evaluation. When EMS arrived patient states that she was feeling improved. Patient states that she did have some blurred vision and muffled hearing of the time. Patient states the symptoms have resolved. Patient does have sleep apnea, she did have a recent sleep study test and is meeting with her physician tomorrow for the results of the sleep study. Related Data Allergies Allergy/AdvReac Type Severity Reaction Status Date / Time No Known Allergies Allergy Verified 12/11/21 10:28 Review of Systems Review of Systems: CONSTITUTIONAL: Denies fever, chills, or sweats. EYES: Denies visual changes, redness, or discharge. ENT: Denies rhinorrhea, congestion, sore throat, or otalgia. CARDIOVASCULAR: Denies chest pain, palpitations, or edema. RESPIRATORY: Denies cough or dyspnea. GASTROINTESTINAL: See HPI GENITOURINARY: Denies dysuria or hematuria. SKIN: Denies rash or itching. MUSCULOSKELETAL: Denies back pain, joint pain, or myalgia. NEUROLOGIC: Denies headache, numbness, or weakness. Near syncope [facility] Past Medical History Medical History (Updated 02/17/22 @ 21:13 by Charles West MD) Arthritis Benign essential hypertension Gastroesophageal reflux disease without esophagitis Hyperlipidemia ROMELIA (obstructive sleep apnea) Type 2 diabetes mellitus without complication, without long-term current use of insulin Surgical History Surgical History (Updated 02/06/22 @ 17:23 by Saundra Antonio NP) H/O hemorrhoidectomy H/O: hysterectomy History of bunionectomy of both great toes Family History Family History Other Cerebrovascular accident Diabetes mellitus Family history of malignant neoplasm Hypertension Social History Social History (Updated 02/07/22 @ 21:07 by Saundra Antonio NP) Smoking status: Never smoker Alcohol intake: never Substance use: never Substance use type: does not use Gender identity (if verbalized by the patient): Female Exam Narrative: APPEARANCE: Well appearing, no pain, no distress, well-nourished. HEAD: normocephalic, atraumatic. EYES: PERRLA/EOMI, conjunctivae clear. NOSE: Normal no drainage THROAT: Pharynx clear, no exudate. NECK: Supple. No adenopathy, no masses. RESPIRATORY: Airway patent, respirations nonlabored. Clear to auscultation bilaterally, no rales, rhonchi, wheezing. CARDIOVASCULAR: Regular rate and rhythm without murmurs rubs or gallops. ABDOMINAL: Soft, nontender, nondistended, normal bowel sounds MUSCULOSKELETAL: Moves all extremities. Strength/ROM intact, No edema, No calf tenderness. NEURO: Alert. Cranial nerves II through XII intact. Grossly intact SKIN: Warm, dry. Normal Color Course Course Emergency Course: Patient felt improved with treatment. Patient states she does still feel tired but denies any other complaints at this time. Patient and family were updated on the results of the work-up including a negative head CT. Patient is afebrile with no leukocytosis. Patient's CMP is within normal limits. Patient has no evidence of urinary tract infection. Chest x-ray was also within normal limits. Patient states that she was having increased sleepiness and states that she did fall asleep
[2022-02-17 18:11] VITALS: BP 104/62; PULSE 73
[2022-02-17 18:13] VITALS: BP 105/63; BP 107/65; PULSE 75; PULSE 79
[2022-02-17 18:18] LABS: Glucose Point of Care 153 mg/dl (65-105)
--- NOTE | 2022-02-17 18:26 | PC.NURSE ---
Patient states she is unable to urinate at this time.
[2022-02-17 18:56] LABS: Basophils Percent Auto 0.2 % (0.2-1.2); Eosinophils Absolute Auto 0.5 K/mm3 (0-0.3); Eosinophils Percent Auto 4.7 % (0-4.4); Hematocrit 34.8 % (37.0-47.0); Hemoglobin 10.6 g/dL (12.0-15.0); Immature Granulocyte Absolute 0.04 K/mm3 (0.00-0.031); Immature Granulocyte Percent A 0.4 % (0-0.5); Lymphocytes Absolute Auto 1.38 K/mm3 (0.9-3.2); Lymphocytes Percent Auto 14.3 % (18.3-44.2); Mean Corpuscular HGB Conc 30.5 g/dl (32-36); Mean Corpuscular Hemoglobin 22.2 pg (26-34); Mean Platelet Volume 10.9 fl (7.4-10.4); Monocytes Absolute Auto 0.4 K/mm3 (0.1-0.6); Monocytes Percent Auto 3.9 % (2.6-8.5); Neutrophils Absolute Auto 7.4 K/mm3 (1.3-6.7); Neutrophils Percent Auto 76.5 % (45.5-73.1); Platelet Count Result 271 k/mm3 (150-375); Red Blood Count 4.77 M/mm3 (4.2-5.4); Red Cell Distribution Width 16.8 % (11.5-14.5); White Blood Count 9.6 K/mm3 (4.5-10.0)
[2022-02-17 19:06] LABS: Alanine Aminotransferase 17 U/L (6-35); Albumin Level 4.6 g/dL (3.5-5.1); Alkaline Phosphatase 76 U/L (38-126); Anion Gap 11 mmol/L (8-16); Aspartate Amino Transferase 22 U/L (14-36); Bilirubin,Total 0.5 mg/dL (0.2-1.3); Blood Urea Nitrogen 18 mg/dL (7-17); Calcium 10.1 mg/dL (8.4-10.2); Carbon Dioxide 29 mmol/L (22-30); Chloride 99 mmol/L (98-107); Estimated CRCL calculation 61 ml/min; Estimated Glomerular Filt Rate > 60; Glucose 145 mg/dL (65-110); Lactic Acid Reflex 1.1 mmol/L (0.7-2.0); Magnesium 2.1 mg/dL (1.6-2.3); Potassium 3.5 mmol/L (3.4-5.0); Sodium 139 mmol/L (137-145)
[2022-02-17 20:24] VITALS: BP 127/79; PULSE 79; RESP 20; O2SAT 100
[2022-02-17 20:28] LABS: Appearance Urine Clear (Clear); Bilirubin Urine Negative (Negative); Blood Urine Negative (Negative); Color Urine Yellow (Yellow); Glucose Urine UA Negative (Negative); Ketones Urine Negative (Negative); Leukocyte Esterase Ur Negative LEU/UL (Negative); Nitrate Urine Negative (Negative); Protein Urine Negative (Negative); Specific Grav Ur 1.025 (1.001-1.035); Urobilinogen Urine 0.2 mg/dL (<2.0)
[2022-02-17 20:40] LABS: Mucus Urine Rare /lpf; RBC Urine 0-2 /hpf (0-2); Squamous Epithelial Cell Urine Rare /hpf (Few); WBC Urine 0-3 /hpf
[2022-02-17 20:47] LABS: Add Urine Microscopic? NO
[2022-02-17 21:13] VITALS: BP 115/86; PULSE 67; RESP 20; O2SAT 99
== END 2022-02-17 21:22 | disposition home or self-care (01) ==
PROVIDERS: Emergency Provider Emergency Medicine; PCP Family Medicine
DX: R40.0 Somnolence (principal); G47.33 Obstructive sleep apnea (adult) (pediatric); I10 Essential (primary) hypertension; E78.5 Hyperlipidemia, unspecified; E11.9 Type 2 diabetes mellitus without complications; K21.9 Gastro-esophageal reflux disease without esophagitis; M19.90 Unspecified osteoarthritis, unspecified site; Z79.84 Long term (current) use of oral hypoglycemic drugs
CPT/HCPCS: 36415; 70450; 71046; 80053; 81003; 82948; 83605; 83735; 85025; 93005; 99284

== ENCOUNTER 2022-02-18 15:58 | Outpatient (CLI) | payer OTHER, SELFPAY ==
[2022-02-18 19:36] LABS: Iron 54 ug/dL (37-170)
[2022-02-18 19:52] LABS: Percent Iron Saturation 13 % (20-50)
== END 2022-02-18 15:59 | disposition home or self-care (01) ==
LOC: ANHGOSHLAB 15:59
PROVIDERS: PCP Family Medicine; Visit Provider Family Medicine
DX: D64.9 Anemia, unspecified (principal)
CPT/HCPCS: 36415; 82728; 83540; 83550

== ENCOUNTER 2022-02-27 13:03 | Outpatient (CLI) | payer OTHER, SELFPAY ==
--- NOTE | ~2022-02-27 | MM_ITS ---
EXAMINATION: MM screening [facility] BI w manuel HISTORY: Screening mammogram TECHNIQUE: Craniocaudal and mediolateral oblique 3-D tomosynthesis images were obtained and synthetic 2-D images were generated. CAD analysis was submitted and interpreted. COMPARISON: 06/13/2016, 04/11/2013 by lateral screening mammogram examinations BREAST PARENCHYMAL COMPOSITION: The breasts are almost entirely fatty. FINDINGS: Bilateral intramammary lymph nodes. There is no evidence of suspicious mass, calcification, or architectural distortion to suggest malignancy in either breast. There has been no suspicious int erval change. IMPRESSION: 1. No mammographic evidence of malignancy. 2. Recommend routine screening mammography in one year. BI-RADS Category 1: Negative Reviewed, dictated and finalized at location A.
--- NOTE | ~2022-02-27 | DEXA_ITS ---
Bone Density Report Name: SAM TURCIOS Age: 66 Sex: Female Ethnicity: Black Date of : 1955 Indication: postmenopausal; screening for osteoporosis; height loss; hysterectomy; Referring Provider: TEZ HIGGINBOTHAM Study: Bone densitometry was performed. Exam Date: February 27, 2022 Accession number: [id number] Bone Density: Region BMD T-score Z-score Classification AP Spine(L1, L2, L3) 1.000 -0.2 0.9 Normal Femoral Neck (Left) 0.887 0.3 0.9 Normal Total Hip (Left) 1.098 1.3 1.4 Normal Femoral Neck (Right) 0.864 0.1 0.7 Normal Total Hip (Right) 1.105 1.3 1.5 Normal Total Hip Mean 1.101 1.3 1.5 Normal World Health Organization criteria for BMD impression classify patients as: Normal (T-score at or above -1.0), Osteopenia (T-score between -1.0 and -2.5), or Osteoporosis (T-score at or below -2.5). 10-year Fracture Risk: FRAX not reported because: All T-scores for Spine Total, Hip Total, Femoral Neck at or above -1.0 Clinical Information Provided by Patient: Has used the following medications: Vitamin D Has the following medical conditions: Hysterectomy Patient maximum height was 67 Menopause Age: 41 No regular weight bearing exercise Onset of menses at age 15 Number of children 4 Impression: The patient has normal bone mass. Discussion: BONE DENSITY IS ABOVE THE MINIMUM DESIRABLE LEVEL AT ALL SKELETAL SITES TESTED. This patient?s bone mineral density is above the minimum desirable level (T-score -1.0 or better) at all sites measured. The patient should follow a healthful lifestyle (good nutrition with adequate calcium and vitamin D, and appropriate weight-bearing exercise). Follow-Up: Consider repeating this study in 5 years or sooner if there is some new clinical indication. Reported by: ERMA on 02/27/2022 1:37:00 PM. Reviewed, dictated and finalized at location ADisha POTTS
== END 2022-02-27 13:04 | disposition home or self-care (01) ==
PROVIDERS: PCP Family Medicine; Visit Provider Family Medicine
DX: Z12.31 Encounter for screening mammogram for malignant neoplasm of breast (principal); Z78.0 Asymptomatic menopausal state
CPT/HCPCS: 77063; 77067; 77080

== ENCOUNTER 2022-07-09 12:37 | Outpatient (CLI) | payer OTHER, SELFPAY ==
--- NOTE | 2022-07-10 10:04 | WPDNEUROLOGY ---
Neurology EEG Report General Information Date of Study: 07/09/22 TEST Routine EEG DIAGNOSIS Syncope and Collapse CONDITION OF RECORDING awake, drowsy, and asleep EEG NUMBER [id number] CLINICAL HISTORY Patient states a week or so ago she was sitting at her dinning room table where she fell asleep twice, woke up feeling nauseous and sweaty with a little confusion. By the time she arrived to the ER she was back to baseline. EEG DESCRIPTION During the awake state with eyes closed the background consists of 8 Hz posterior dominant rhythm which attenuates appropriately with eye opening. The recording is continuous. There is a well developed anterior-posterior gradient. No significant asymmetries of background activities are noted. With drowsiness there is was waxing and waning of the dominant rhythm with eventual replacement by a mixture of beta, alpha, and theta activity. As the patient enters stage II sleep, symmetrical spindles and K complexes are present. Arousal is unremarkable. There are no epileptiform discharges or seizures during this recording. Photic stimulation did not elicit any abnormal photoparoxysmal response. IMPRESSION This is a normal routine EEG recorded in awake, drowsy, and asleep states. There are no electrographic seizures identified, nor are there any epileptiform discharges. Please note that a normal EEG cannot exclude a seizure disorder. Clinical correlation is recommended.
== END 2022-07-09 12:38 | disposition home or self-care (01) ==
PROVIDERS: PCP Family Medicine; Visit Provider Psychiatry & Neurology Neurology
DX: R55 Syncope and collapse (principal)
CPT/HCPCS: 95816

== ENCOUNTER 2022-10-03 08:26 | Outpatient (CLI) | payer OTHER, SELFPAY ==
[2022-10-03 18:32] LABS: Basophils Percent Auto 0.5 % (0.2-1.2); Eosinophils Absolute Auto 0.5 K/mm3 (0-0.3); Eosinophils Percent Auto 6.6 % (0-4.4); Hematocrit 34.4 % (37.0-47.0); Hemoglobin 10.6 g/dL (12.0-15.0); Immature Granulocyte Absolute 0.02 K/mm3 (0.00-0.031); Immature Granulocyte Percent A 0.2 % (0-0.5); Lymphocytes Absolute Auto 2.08 K/mm3 (0.9-3.2); Lymphocytes Percent Auto 25.8 % (18.3-44.2); Mean Corpuscular HGB Conc 30.8 g/dl (32-36); Mean Corpuscular Hemoglobin 22.3 pg (26-34); Mean Corpuscular Volume 72.4 fl (80-100); Mean Platelet Volume 11.4 fl (7.4-10.4); Monocytes Absolute Auto 0.5 K/mm3 (0.1-0.6); Monocytes Percent Auto 5.6 % (2.6-8.5); Neutrophils Percent Auto 61.3 % (45.5-73.1); Platelet Count Result 280 k/mm3 (150-375); Red Blood Count 4.75 M/mm3 (4.2-5.4); Red Cell Distribution Width 15.9 % (11.5-14.5); White Blood Count 8.1 K/mm3 (4.5-10.0)
[2022-10-03 18:52] LABS: Microcytosis 1+ (NORMAL); Ovalocytes 1+ (NORMAL); Platelet Estimate Adequate (Adequate); Schistocytes None Seen (NORMAL); Target Cells 1+ (NORMAL)
[2022-10-03 18:53] LABS: Vitamin D 25 Hydroxy 48.1 ng/mL
[2022-10-03 19:49] LABS: Anion Gap 4 mmol/L (8-16); Blood Urea Nitrogen 16 mg/dL (7-17); Calcium 9.3 mg/dL (8.4-10.2); Carbon Dioxide 34 mmol/L (22-30); Chloride 100 mmol/L (98-107); Cholesterol 148 mg/dL (0-200); Estimated Glomerular Filt Rate > 60; Glucose 118 mg/dL (65-110); HDL Direct 42 mg/dL; Potassium 3.7 mmol/L (3.4-5.0); Sodium 138 mmol/L (137-145); Triglycerides 107 mg/dL (<150)
[2022-10-03 20:01] LABS: LDL Cholesterol Direct 73 mg/dL
[2022-10-03 20:59] LABS: Hemoglobin A1C 7.9 % (<5.7)
== END 2022-10-03 08:27 | disposition home or self-care (01) ==
LOC: ANHGOSHLAB 08:27
PROVIDERS: PCP Family Medicine; Visit Provider Nurse Practitioner Family
DX: R55 Syncope and collapse (principal); E78.5 Hyperlipidemia, unspecified; I10 Essential (primary) hypertension; E11.9 Type 2 diabetes mellitus without complications; G47.33 Obstructive sleep apnea (adult) (pediatric)
CPT/HCPCS: 36415; 80048; 80061; 82306; 82607; 83036; 84443; 85025

== ENCOUNTER 2022-10-29 08:36 | Outpatient (CLI) | payer OTHER, SELFPAY ==
--- NOTE | 2022-10-29 08:44 | EST_ITS ---
Patient Info Name: Regine Brannon Age: 67 years : 1955 Gender: Female Ht: 67 in Wt: 207 lbs BSA: 2.14 m2 HR: 75 bpm BP: 157 / 94 mmHg Heart Rhythm: Sinus Rhythm Technical Quality: Good Exam Date: 10/29/2022 8:54 AM Exam Location: [facility] Patient Status: Outpatient Admit Date: 10/29/2022 Staff Ordering Physician: Jackelin Mark Director Presales: Evelin Emery RDCS Attending Provider: Jackelin Mark Referring Physician: Jas DOWELL; Exam Type: CA stress echo Study Info Indications R07.9 - Chest pain, unspecified Treadmill exercise stress echocardiogram is performed. Summary 1. 1. Negative Bart exercise stress test for ischemic ST changes by ECG criteria. 2. 2. Poor functional capacity, achieving 4.6 METs of workload. 3. 3. Baseline hypertension. 4. 4. Rapid HR response to exercise. 5. 5. Appropriate HR recovery at 1 minute post exercise. 6. 6. Negative stress echocardiogram for ischemia by wall motion analysis. 7. 7. Patient informed of the above results. Stress Echo Findings Left Ventricle Appropriate increase in LV endocadial thickening with systole. Appropriate augmentation of contractility with systole. No wall motion abnormality. Left Ventricle Normal LV systolic function, no wall motion abnormality. Protocol: Bart Stress ECG Details Stage: REST Duration (min): 1 min : 38 sec Speed (mph): 0.0 Grade (%): 0 HR (bpm): 75 SBP (mmHg): 157 DBP (mmHg): 94 METS: --- Stage: REST Duration (min): 11 min : 27 sec Speed (mph): 0.0 Grade (%): 0 HR (bpm): 91 SBP (mmHg): 157 DBP (mmHg): 94 METS: --- Stage: STAGE 1 Duration (min): 1 min : 0 sec Speed (mph): 1.7 Grade (%): 10 HR (bpm): 129 SBP (mmHg): 157 DBP (mmHg): 94 METS: --- Stage: STAGE 1 Duration (min): 2 min : 0 sec Speed (mph): 1.7 Grade (%): 10 HR (bpm): 155 SBP (mmHg): 157 DBP (mmHg): 94 METS: --- Stage: STAGE 1 Duration (min): 2 min : 1 sec Speed (mph): 0.0 Grade (%): 0 HR (bpm): 155 SBP (mmHg): 157 DBP (mmHg): 94 METS: --- Stage: RECOVERY Duration (min): 0 min : 58 sec Speed (mph): 0.0 Grade (%): 0 HR (bpm): 121 SBP (mmHg): 197 DBP (mmHg): 60 METS: --- Stage: RECOVERY Duration (min): 1 min : 58 sec Speed (mph): 0.0 Grade (%): 0 HR (bpm): 89 SBP (mmHg): 197 DBP (mmHg): 60 METS: --- Stage: RECOVERY Duration (min): 2 min : 58 sec Speed (mph): 0.0 Grade (%): 0 HR (bpm): 96 SBP (mmHg): 163 DBP (mmHg): 76 METS: --- Stage: RECOVERY Duration (min): 3 min : 0 sec Speed (mph): 0.0 Grade (%): 0 HR (bpm): 96 SBP (mmHg): 163 DBP (mmHg): 76 METS: --- Rest HR: 91 bpm Peak HR: 155 bpm Rest Sys BP: 157 mmHg Peak Sys BP: 197 mmHg Max Pred HR: 154 bpm % Max Pred HR: 101 % Target HR: 131 bpm Max RPP: 30,535 bpm*mmHg Alexander Score: -7 Termination Reason: Reached target heart rate or workload Cardiac Symptoms: Shortness of breath Max ST Seg Deviation: -1.90 mm Total Time: 2 min : 1 sec Rest Turk BP: 94 mmHg Peak D
== END 2022-10-29 08:37 | disposition home or self-care (01) ==
PROVIDERS: PCP Family Medicine; Visit Provider Nurse Practitioner Family
DX: R07.89 Other chest pain (principal); R40.0 Somnolence; R55 Syncope and collapse; I10 Essential (primary) hypertension
CPT/HCPCS: 93351

== ENCOUNTER 2023-02-04 14:25 | Outpatient (RCR) | payer OTHER, SELFPAY ==
[2023-02-04 14:33] VITALS: BMI 30.4
[2023-02-04 15:20] VITALS: BMI 30.4
== END 2023-04-21 10:24 | disposition home or self-care (01) ==
LOC: ANHDMC 14:25
PROVIDERS: PCP Family Medicine; Visit Provider Family Medicine
DX: E78.5 Hyperlipidemia, unspecified (principal); I10 Essential (primary) hypertension; K21.9 Gastro-esophageal reflux disease without esophagitis; E11.9 Type 2 diabetes mellitus without complications; Z71.3 Dietary counseling and surveillance
CPT/HCPCS: 97802

== ENCOUNTER 2023-02-25 10:51 | Outpatient (CLI) | payer OTHER, SELFPAY ==
[2023-02-25 19:43] LABS: Creatinine Urine 123.9 mg/dL
[2023-02-25 19:45] LABS: MALB Creatinine Ratio 7.3 mg/g (0-30)
[2023-02-25 20:27] LABS: Alanine Aminotransferase 18 U/L (6-35); Albumin Level 4.3 g/dL (3.5-5.1); Alkaline Phosphatase 73 U/L (38-126); Anion Gap 10 mmol/L (8-16); Aspartate Amino Transferase 32 U/L (14-36); Bilirubin,Total 0.4 mg/dL (0.2-1.3); Blood Urea Nitrogen 15 mg/dL (7-17); Calcium 9.4 mg/dL (8.4-10.2); Carbon Dioxide 31 mmol/L (22-30); Chloride 101 mmol/L (98-107); Cholesterol 136 mg/dL (0-200); Estimated Glomerular Filt Rate > 60; Glucose 109 mg/dL (65-110); HDL Direct 42 mg/dL; Potassium 3.9 mmol/L (3.4-5.0); Sodium 142 mmol/L (137-145); Triglycerides 83 mg/dL (<150)
[2023-02-25 20:34] LABS: Hemoglobin A1C 7.3 % (<5.7)
[2023-02-25 20:38] LABS: LDL Cholesterol Direct 68 mg/dL
== END 2023-02-25 10:52 | disposition home or self-care (01) ==
LOC: ANHGOSHLAB 10:53
PROVIDERS: PCP Family Medicine; Visit Provider Family Medicine
DX: E11.9 Type 2 diabetes mellitus without complications (principal)
CPT/HCPCS: 36415; 80053; 80061; 82043; 83036

== ENCOUNTER 2023-07-02 13:01 | Emergency (ER) | payer OTHER, SELFPAY ==
[2023-07-02 13:08] VITALS: BP 96/61; PULSE 69; RESP 16; TEMP 36.6; O2SAT 100
--- NOTE | 2023-07-02 13:32 | ED.GENADULT ---
HPI - General Adult General Chief complaint: Dizziness Stated complaint: DIZZY/WEAKNESS/LOW BLOOD SUGAR Time Seen by Provider: 07/02/23 13:32 Source: patient Mode of arrival: ambulatory Limitations: no limitations History of Present Illness HPI narrative: 68 yo F with hx of HTN, DM presents with c/o fatigue and feeling lightheaded. Pt reports BS dropped into 60s the past two nights and was woken up by her dexacom. pt takes 500mg metformin twice a day. Ate dinner around 4pm yesterday and nothing after. Son states she has been eating early and then nothing for rest of night. BS at [employer]. BP low. Denies any recent med changes. No recent weight loss. Denies CP/SOB. No URI symptoms. Has not called her PCP regarding symptoms. All systems reviewed and negative except as noted above. Related Data Home Medications Medication Instructions Recorded Confirmed cetirizine 10 mg capsule (Zyrtec) 10 mg PO DAILY PRN Allergic 02/18/22 07/02/23 Symptoms brimonidine 0.2 %-timolol 0.5 % 1 drp EACH EYE DAILY 12/13/22 07/02/23 eye drops Allergies Allergy/AdvReac Type Severity Reaction Status Date / Time No Known Allergies Allergy Verified 07/02/23 13:26 Review of Systems Review of Systems: CONSTITUTIONAL: Denies fever, chills, or sweats. Reports fatigue and feeling lightheaded. EYES: Denies visual changes, redness, or discharge. ENT: Denies rhinorrhea, congestion, sore throat, or otalgia. CARDIOVASCULAR: Denies chest pain, palpitations, or edema. RESPIRATORY: Denies cough or dyspnea. GASTROINTESTINAL: Denies abdominal pain, nausea, vomiting, or diarrhea. GENITOURINARY: Denies dysuria or hematuria. SKIN: Denies rash or itching. MUSCULOSKELETAL: Denies back pain, joint pain, or myalgia. NEUROLOGIC: Denies headache, numbness, or weakness. PSYCHIATRIC: Denies anxiety or depression. All other systems reviewed are negative, except as documented in HPI. [facility] Past Medical History Medical History Arthritis Benign essential hypertension Gastroesophageal reflux disease without esophagitis Hyperlipidemia ROMELIA (obstructive sleep apnea) Type 2 diabetes mellitus without complication, without long-term current use of insulin Surgical History Surgical History H/O hemorrhoidectomy H/O: hysterectomy History of bunionectomy of both great toes Family History Family History Other Cerebrovascular accident Diabetes mellitus Family history of malignant neoplasm Hypertension Social History Social History Smoking status: Never smoker Alcohol intake: never Substance use: never Substance use type: does not use Lack of Transportation: No Lack of Food: Never True Current Housing: I Have Housing Concerned About Future Housing: No Difficulty Paying Gas/Electric Bills: No Difficulty Paying for Meds: No Currently Unemployed: No Education: High School Diploma/GED Difficulty w/ Childcare or Family Care: No Living arrangements: with family Additional living arrangements comments: Occupation/Education: occupation Gender identity (if verbalized by the patient): Female Sexual Orientation (if Verbalized by the Patient): Straight or Heterosexual Spiritual care concerns: No Comments At time of signature, agree with nursing past medical, surgical, social and family history. There is no relevant family history pertinent to the presenting complaint. Exam Narrative: GENERAL: This is a well-nourished, well-developed patient, in no apparent distress. HEAD: normocephalic, atraumatic. EYES: PERRL. Sclera clear/white. Vision is grossly intact. EARS: External ears normal, auditory canals clear and without drainage, TMs normal without perforation. Hearing grossly intact. NOSE: External no
[2023-07-02 13:52] LABS: Glucose Point of Care 202 mg/dl (65-105)
--- NOTE | 2023-07-02 13:54 | PC.NURSE ---
SON HAS LEFT AND HAS ARRIVED. IS ATTEMPTING TO CONTACT DR GERMAIN'S OFFICE AT THIS TIME.
[2023-07-02 14:00] VITALS: BP 96/60; PULSE 68; RESP 18; O2SAT 99
== END 2023-07-02 14:00 | disposition home or self-care (01) ==
PROVIDERS: Emergency Provider Nurse Practitioner Family; PCP Family Medicine
DX: I95.9 Hypotension, unspecified (principal); I10 Essential (primary) hypertension; E11.9 Type 2 diabetes mellitus without complications; E78.5 Hyperlipidemia, unspecified; Z79.899 Other long term (current) drug therapy
CPT/HCPCS: 82948; 99213; G0463

== ENCOUNTER 2023-07-04 10:27 | Outpatient (CLI) | payer OTHER, SELFPAY ==
[2023-07-04 19:47] LABS: Alanine Aminotransferase 13 U/L (6-35); Alkaline Phosphatase 70 U/L (38-126); Anion Gap 5 mmol/L (8-16); Aspartate Amino Transferase 28 U/L (14-36); Bilirubin,Total 0.4 mg/dL (0.2-1.3); Blood Urea Nitrogen 14 mg/dL (7-17); Carbon Dioxide 31 mmol/L (22-30); Chloride 105 mmol/L (98-107); Cholesterol 139 mg/dL (0-200); Estimated Glomerular Filt Rate > 60; Glucose 134 mg/dL (65-110); HDL Direct 44 mg/dL; Potassium 3.8 mmol/L (3.4-5.0); Sodium 141 mmol/L (137-145); Triglycerides 56 mg/dL (<150)
[2023-07-04 19:58] LABS: LDL Cholesterol Direct 74 mg/dL
[2023-07-04 20:09] LABS: Creatinine Urine 200.3 mg/dL; Hemoglobin A1C 7.6 % (<5.7)
[2023-07-04 20:13] LABS: MALB Creatinine Ratio 7.9 mg/g (0-30); Microalbumin Urine Random 15.9 mg/L (0-16.7)
== END 2023-07-04 10:28 | disposition home or self-care (01) ==
LOC: ANHGOSHLAB 10:28
PROVIDERS: PCP Family Medicine; Visit Provider Family Medicine
DX: E11.9 Type 2 diabetes mellitus without complications (principal)
CPT/HCPCS: 36415; 80053; 80061; 82043; 83036

== ENCOUNTER 2023-08-03 09:35 | Emergency (ER) | payer OTHER, SELFPAY ==
--- NOTE | ~2023-08-03 | XR_ITS ---
EXAMINATION: XR chest 2V DATE: 08/03/2023 11:02 INDICATION: Palpitations. TECHNIQUE: Frontal and lateral views of the chest were obtained. COMPARISON: Chest 2 views 02/17/2022 FINDINGS: There is no pneumonia, pleural effusion, or pneumothorax. The heart size is normal. IMPRESSION: 1. No acute cardiopulmonary disease. Reviewed, dictated and finalized at location A. EMIOLOGY INTERN
--- NOTE | 2023-08-03 09:38 | ECG_ITS ---
Measurements Intervals [place] Rate: 85 P: 52 [place]: 134 QRS: 21 QRSD: 94 T: 65 QT: 382 QTc: 457 Interpretive Statements SINUS RHYTHM WITH FREQUENT SUPRAVENTRICULAR PREMATURE COMPLEXES NONSPECIFIC T-WAVE ABNORMALITY CANNOT RULE OUT INFERIOR MYOCARDIAL INFARCTION, AGE INDETERMINATE ABNORMAL ECG COMPARED TO ECG 02/17/2022 17:58:52 T-WAVE ABNORMALITY NOW PRESENT Electronically Signed On 08-03-2023 10:26:34 ELECTRONICS TECHNICIAN by William Ramirez M.D.
[2023-08-03 09:40] VITALS: BP 156/96; PULSE 88; RESP 18; TEMP 36.1; O2SAT 100
[2023-08-03 09:47] VITALS: PULSE 79
[2023-08-03 10:34] LABS: Basophils Absolute Auto 0.1 K/mm3 (0.0-0.1); Basophils Percent Auto 0.8 % (0.2-1.2); Eosinophils Absolute Auto 0.4 K/mm3 (0-0.3); Eosinophils Percent Auto 5.9 % (0-4.4); Hematocrit 38.4 % (37.0-47.0); Hemoglobin 11.6 g/dL (12.0-15.0); Immature Granulocyte Absolute 0.03 K/mm3 (0.00-0.031); Immature Granulocyte Percent A 0.4 % (0-0.5); Immature Platelet Fraction Pct 9.8 % (0.9-11.2); Lymphocytes Absolute Auto 1.82 K/mm3 (0.9-3.2); Lymphocytes Percent Auto 24.2 % (18.3-44.2); Mean Corpuscular HGB Conc 30.2 g/dl (32-36); Mean Corpuscular Hemoglobin 22.1 pg (26-34); Mean Corpuscular Volume 73.3 fl (80-100); Mean Platelet Volume 12.1 fl (7.4-10.4); Monocytes Absolute Auto 0.4 K/mm3 (0.1-0.6); Monocytes Percent Auto 5.2 % (2.6-8.5); Neutrophils Absolute Auto 4.8 K/mm3 (1.3-6.7); Neutrophils Percent Auto 63.5 % (45.5-73.1); Platelet Count Result 245 k/mm3 (150-375); Red Blood Count 5.24 M/mm3 (4.2-5.4); Red Cell Distribution Width 16.7 % (11.5-14.5); White Blood Count 7.5 K/mm3 (4.5-10.0)
[2023-08-03 10:47] LABS: Alanine Aminotransferase 17 U/L (6-35); Albumin Level 5.1 g/dL (3.5-5.1); Alkaline Phosphatase 74 U/L (38-126); Anion Gap 11 mmol/L (8-16); Aspartate Amino Transferase 35 U/L (14-36); Bilirubin,Total 0.7 mg/dL (0.2-1.3); Blood Urea Nitrogen 19 mg/dL (7-17); Carbon Dioxide 27 mmol/L (22-30); Chloride 103 mmol/L (98-107); Estimated CRCL calculation 78 ml/min; Estimated Glomerular Filt Rate > 60; Glucose 115 mg/dL (65-110); Potassium 3.9 mmol/L (3.4-5.0); Sodium 141 mmol/L (137-145)
[2023-08-03 10:48] LABS: INR 0.9; Partial Thromboplastin Time 25.3 SECONDS (22.3-36.8); Prothrombin Time 12.1 Seconds (11.1-14.7)
[2023-08-03 10:53] LABS: Anisocytosis 1+ (NORMAL); Hypochromasia 1+ (NORMAL); Platelet Estimate Adequate (Adequate); Schistocytes None Seen (NORMAL)
[2023-08-03 10:54] LABS: Troponin I < 0.012 ng/mL (0.000-0.034)
[2023-08-03 11:37] VITALS: BP 118/76; PULSE 82; RESP 16; O2SAT 100
--- NOTE | 2023-08-03 12:57 | ED.ARRPALP ---
HPI - Arrhythmia/Palpitations General Chief Complaint: Arrhythmia/Palpitations Stated Complaint: Heart palpations Time Seen by Provider: 08/03/23 09:38 History of Present Illness HPI narrative: Patient is a 68-year-old female who presents ER with palpitations of her heart. Feels like her heartbeat is dragging on at times. No chest pain or chest pressure. No dizziness. No nausea or vomiting. No history of arrhythmia or heart disease. No fevers or chills or sweats. No productive cough. No recent caffeine use or supplement vitamins. She does have sleep apnea and uses her CPAP. Related Data Home Medications Medication Instructions Recorded Confirmed cetirizine 10 mg capsule (Zyrtec) 10 mg PO DAILY PRN Allergic 02/18/22 07/02/23 Symptoms brimonidine 0.2 %-timolol 0.5 % 1 drp EACH EYE DAILY 12/13/22 07/02/23 eye drops Allergies Allergy/AdvReac Type Severity Reaction Status Date / Time No Known Allergies Allergy Verified 08/03/23 09:55 Review of Systems Constitutional: Constitutional: Reports no additional constitutional complaints ENT: Reports system reviewed and no additional complaints, except as documented Cardiovascular: Cardiovascular: Denies chest pain, Denies rapid heart rate and Denies radiating jaw, neck or arm pain Comments: Prolonged heartbeat. Respiratory: Respiratory: Reports no additional respiratory complaints Gastrointestinal: Gastrointestinal: Reports no additional gastrointestinal complaints [facility] Past Medical History Medical History Arthritis Benign essential hypertension Gastroesophageal reflux disease without esophagitis Hyperlipidemia ROMELIA (obstructive sleep apnea) Type 2 diabetes mellitus without complication, without long-term current use of insulin Surgical History Surgical History H/O hemorrhoidectomy H/O: hysterectomy History of bunionectomy of both great toes Family History Family History Other Cerebrovascular accident Diabetes mellitus Family history of malignant neoplasm Hypertension Social History Social History Smoking status: Never smoker Alcohol intake: never Substance use: never Substance use type: does not use Do You Feel Safe in your Home?: Yes Lack of Transportation: No Lack of Food: Never True Current Housing: I Have Housing Concerned About Future Housing: No Difficulty Paying Gas/Electric Bills: No Difficulty Paying for Meds: No Currently Unemployed: No Education: High School Diploma/GED Difficulty w/ Childcare or Family Care: No Living arrangements: with family Additional living arrangements comments: Occupation/Education: occupation Gender identity (if verbalized by the patient): Female Sexual Orientation (if Verbalized by the Patient): Straight or Heterosexual Spiritual care concerns: No Exam Narrative: GENERAL: Well-appearing, well-nourished, and in no acute distress. HEAD: Normocephalic, atraumatic. ENT: Mucous membranes moist. NECK: Supple. CHEST: Clear to auscultation. No respiratory distress. HEART: Regular rate and rhythm. Normal peripheral pulses. ABDOMEN: Soft, nontender, nondistended. EXTREMITIES: Normal range of motion. No edema. SKIN: Warm, dry, no rash. NEURO: Alert and oriented x3. PSYCH: Normal mood and affect. Course Course Emergency Course: Patient resting comfortably. Patient has had some PACs on her laboratory monitor and her EKG. Electrolytes unremarkable. Troponin negative. Recommend follow-up with PCP. Discussed return precautions. Discussed avoiding stimulants such as caffeine. Vital Signs Vital signs: Vital Signs Temperature 97 F L 08/03/23 09:40 Pulse Rate 88 08/03/23 09:40 Respiratory Rate 18 08/03/23 09:40 B
[2023-08-03 13:18] VITALS: BP 118/75; PULSE 79; RESP 15; O2SAT 99
== END 2023-08-03 13:24 | disposition home or self-care (01) ==
PROVIDERS: Emergency Provider Emergency Medicine; PCP Family Medicine
DX: I49.1 Atrial premature depolarization (principal); I10 Essential (primary) hypertension; E11.9 Type 2 diabetes mellitus without complications; E78.5 Hyperlipidemia, unspecified; K21.9 Gastro-esophageal reflux disease without esophagitis; G47.33 Obstructive sleep apnea (adult) (pediatric); M19.90 Unspecified osteoarthritis, unspecified site; Z90.710 Acquired absence of both cervix and uterus; Z79.84 Long term (current) use of oral hypoglycemic drugs; R94.31 Abnormal electrocardiogram [ECG] [EKG]
CPT/HCPCS: 36415; 71046; 80053; 83735; 84484; 85025; 85055; 85610; 85730; 93005; 99284

== ENCOUNTER 2023-12-17 09:20 | Outpatient (CLI) | payer OTHER, SELFPAY ==
[2023-12-17 19:31] LABS: Alanine Aminotransferase 14 U/L (6-35); Albumin Level 4.4 g/dL (3.5-5.1); Alkaline Phosphatase 73 U/L (38-126); Anion Gap 6 mmol/L (4-12); Aspartate Amino Transferase 30 U/L (14-36); Bilirubin,Total 0.5 mg/dL (0.2-1.3); Blood Urea Nitrogen 15 mg/dL (7-17); Calcium 9.2 mg/dL (8.4-10.2); Carbon Dioxide 30 mmol/L (22-30); Chloride 106 mmol/L (98-107); Estimated Glomerular Filt Rate > 60; Glucose 101 mg/dL (65-110); Potassium 3.9 mmol/L (3.4-5.0); Sodium 142 mmol/L (137-145)
[2023-12-17 19:45] LABS: Hemoglobin A1C 6.9 % (<5.7)
== END 2023-12-17 09:21 | disposition home or self-care (01) ==
LOC: ANHGOSHLAB 09:21
PROVIDERS: PCP Family Medicine; Visit Provider Family Medicine
DX: Z78.0 Asymptomatic menopausal state (principal); E11.9 Type 2 diabetes mellitus without complications
CPT/HCPCS: 36415; 80053; 83036

== ENCOUNTER 2024-01-01 12:44 | Outpatient (CLI) | payer OTHER, SELFPAY ==
--- NOTE | 2024-01-01 12:47 | ECHO_ITS ---
Patient Info Name: Regine Brannon Age: 68 years : 1955 Gender: Female Ht: 67 in Wt: 193 lbs BSA: 2.06 m2 HR: 78 bpm BP: 131 / 79 mmHg Technical Quality: Fair Exam Date: 01/01/2024 12:56 PM Exam Location: Echo Lab Patient Status: Outpatient Admit Date: 01/01/2024 Staff Ordering Physician: Yvon Hyman MD Director Of Database Marketing: Annel Nicholas RDCS Attending Provider: Yvon Hyman MD Referring Physician: Boogie DOYLE; Exam Type: CA echo doppler color flow Study Info Indications R00.2 - Palpitations Complete two-dimensional, color flow and Doppler transthoracic echocardiogram is performed. Summary 1. Complete two-dimensional, color flow and Doppler transthoracic echocardiogram is performed. 2. Left ventricular chamber dimension is normal. 3. Left ventricular systolic function is normal, estimated at 60-65%. 4. The left ventricular diastolic function is grade I diastolic dysfunction. 5. E/e' 9 is minimally elevated. 6. Interatrial septal aneurysm with no evidence of shunting by color doppler. 7. There is moderate aortic valve sclerosis. 8. There is trace tricuspid valve regurgitation. 9. No pulmonary hypertension, estimated pulmonary arterial systolic pressure is 24 mmHg. 10. There is trace pulmonic regurgitation. Left Ventricle E/e' 9 is minimally elevated. Left ventricular chamber dimension is normal. Left ventricular systolic function is normal, estimated at 60-65%. The left ventricular diastolic function is grade I diastolic dysfunction. Right Ventricle Right ventricular systolic function is normal and with normal TAPSE 1.9 cm. Right ventricular chamber dimension is normal. Left Atria Left atrial chamber dimension is normal. Right Atria Right atrial chamber dimension is normal. Atrial Septum Interatrial septal aneurysm with no evidence of shunting by color doppler. Aortic Valve The aortic valve is trileaflet. There is moderate aortic valve sclerosis. There is no aortic valve stenosis. There is no aortic valve regurgitation. Pulmonic Valve There is trace pulmonic regurgitation. Mitral Valve There is no mitral valve stenosis. There is no mitral valve regurgitation. Tricuspid Valve There is trace tricuspid valve regurgitation. No pulmonary hypertension, estimated pulmonary arterial systolic pressure is 24 mmHg. Pericardium/Pleural There is no pericardial effusion. Inferior Vena Cava Normal inferior vena cava with >50% collapse upon inspiration consistent with normal right atrial pressure, 5 mmHg. Aorta The aortic root size at the sinus of Valsalva is normal. Left Ventricular Outflow Tract Name Value Normal LVOT 2D LVOT Diameter 2.0 cm LVOT Doppler LVOT Peak Gradient 4 mmHg LVOT Mean Gradient 2 mmHg LVOT VTI 19 cm LVOT VTI/AV VTI Ratio 0.7 LVOT Stroke Volume 58 ml LVOT CO 3.9 l/min LVOT CI 1.9 l/min/m2 Pulmonic Valve Name Value
== END 2024-01-01 12:45 | disposition home or self-care (01) ==
PROVIDERS: PCP Family Medicine; Visit Provider Family Medicine
DX: I49.8 Other specified cardiac arrhythmias (principal); R00.2 Palpitations
CPT/HCPCS: 93306

== ENCOUNTER 2024-02-12 00:29 | Emergency (ER) | payer OTHER, SELFPAY ==
--- NOTE | ~2024-02-12 | XR_ITS ---
EXAMINATION: XR chest 1V portable DATE: 02/12/2024 01:46 INDICATION: Chest pain. TECHNIQUE: A single frontal view of the chest was obtained. COMPARISON: Chest 2 views 08/03/2023 FINDINGS: There is no pneumonia, pleural effusion, or pneumothorax. The heart size is normal. IMPRESSION: 1. No acute cardiopulmonary disease. Reviewed, dictated and finalized at location A.
--- NOTE | ~2024-02-12 | CT_ITS ---
EXAMINATION: CTA chest DATE: 02/12/2024 02:57 INDICATION: Chest pain. TECHNIQUE: Computed tomographic angiography (CTA) of the chest was performed with 75 mL Omnipaque-350 intravenous contrast. Automated exposure control and iterative reconstruction technique were employe d. The dose-length product was 692.89 mGy-cm. Maximum intensity projection 3D-reconstructions of the aorta and other arteries were constructed by the technologist on a separate workstation. COMPARISON: Chest CT 01/29/2016 FINDINGS: The lungs demonstrate minimal atelectasis. No pleural effusion. Cardiomegaly is noted. No p ericardial effusion. There is mild aortic atherosclerosis. No aneurysm or dissection. There is a smal l sliding hiatal hernia. There is no pulmonary embolus. There is severe thoracic spondylosis. IMPRESSION: 1. No aortic aneurysm or dissection. 2. No pulmonary embolus. Reviewed, dictated and finalized at location A.
--- NOTE | ~2024-02-12 | CT_ITS ---
EXAMINATION: CTA brain carotid DATE: 02/12/2024 02:57 INDICATION: Jaw pain. TECHNIQUE: Computed tomographic angiography (CTA) of the head was performed without and with 75 mL Om nipaque-350 intravenous contrast. CTA of the neck was performed with intravenous contrast. Automated exposure control and iterative reconstruction technique were employed. The dose-length product was 15 31.53 mGy-cm. Maximum intensity projection and volume rendered 3D-reconstructions were created by the technologist on a separate workstation. COMPARISON: Head CT 02/17/2022 FINDINGS: HEAD CTA: There is no intracranial hemorrhage, acute infarction, or abnormal intracranial mass lesion . There is an empty sella. The ventricles are normal in size. The orbits are normal. The paranasal si nuses are clear. The mastoid air cells are normal. Left vertebral artery is dominant. There is no sig nificant stenosis of basilar artery or the posterior cerebral arteries. There is no significant steno sis of the intracranial internal carotid arteries or anterior or middle cerebral arteries. Anterior c ommunicating artery is normal. The posterior communicating arteries are normal. There is no aneurysm. NECK CTA: There are no pathologically enlarged left dense. There is no significant stenosis of the ve rtebral arteries. There is mild plaque in the proximal internal carotid arteries. There is 0% stenosi s of the proximal right internal carotid artery relative to normal distal artery lumen diameter (NASC ET criteria). There is 0% stenosis of the proximal left internal carotid artery relative to normal di stal artery lumen diameter. There is mild cervical spondylosis. IMPRESSION: 1. Empty sella. 2. No aneurysm or significant intracranial arterial stenosis. 3. 0% stenosis of the proximal internal carotid arteries relative to normal distal artery lumen diame ters (NASCET criteria). Reviewed, dictated and finalized at location A. IMPRESSION: 1. Empty sella. 2. No aneurysm or significant intracranial arterial stenosis. 3. 0% stenosis of the proximal internal carotid arteries relative to normal dis maria l artery lumen diameters (NASCET criteria).
[2024-02-12 00:36] VITALS: BP 148/76; PULSE 81; RESP 15; TEMP 36.8; O2SAT 98
--- NOTE | 2024-02-12 00:51 | ECG_ITS ---
Test Date: 2024-02-12 00:51:20 Measurements Intervals [place] Rate: 76 P: 53 [place]: 152 QRS: 9 QRSD: 92 T: 46 QT: 367 QTc: 414 Interpretive Statements SINUS RHYTHM PROBABLE INFERIOR MYOCARDIAL INFARCTION , PROBABLY OLD [35 ms Q WAVE IN II/aVF] No previous ECG available for comparison Electronically Signed On 02-12-2024 14:44:07 CDT by Omayra Winters M.D.
[2024-02-12 01:01] VITALS: PULSE 77
[2024-02-12 01:02] VITALS: BP 170/93; PULSE 77; RESP 16; TEMP 36.6; O2SAT 100
[2024-02-12 01:03] VITALS: RESP 17
--- NOTE | 2024-02-12 01:25 | ED.GENADULT ---
HPI - General Adult General Chief complaint: Unspecified <DUNCAN Craft Last Filed: 02/12/24 03:14> Stated complaint: mouth/jaw/throat pain <Migdalia Maxwell PA-C - Last Filed: 02/12/24 03:14> Time Seen by Provider: 02/12/24 01:08 <DUNCAN Craft Last Filed: 02/12/24 03:14> History of Present Illness HPI narrative: 68-year-old female with a history of PVT, type 2 diabetes, ROMELIA, GERD, hypertension, hyperlipidemia presents to the emergency department for jaw pain that started tonight 1/2 hours ago. Patient states she was sitting on the side of her bed when she began having pain throughout her jaw that extended down in your neck and into her anterior mid chest. She described the pain as a sharp sensation at that time. States that lasted a couple hours medicines largely resolved. She states she has a residual discomfort she describes as an ache in her throat. She states she had a similar episode the night before that lasted approximately 1 hours self-resolved. She is also reporting a diffuse headache that was more significant when she walked into the ED but has improved some. She denies cough or congestion, active chest pain or abdominal pain, nausea or vomiting. She does not smoke. Denies prior known cardiac disease or family history of cardiac disease. Denies vision changes, focal numbness, tingling or weakness. <Migdalia Maxwell PA-C - Last Filed: 02/12/24 03:14> Related Data Home medications: Home Medications Medication Instructions Recorded Confirmed cetirizine 10 mg capsule (Zyrtec) 10 mg PO DAILY PRN Allergic 02/18/22 12/22/23 Symptoms brimonidine 0.2 %-timolol 0.5 % 1 drp EACH EYE DAILY 12/13/22 12/22/23 eye drops flash glucose sensor (FreeStyle #1 ea 10/16/23 12/22/23 Se 2 Sensor kit) <DUNCAN Craft Last Filed: 02/12/24 03:14> Allergies/adverse reactions: Allergies Allergy/AdvReac Type Severity Reaction Status Date / Time No Known Allergies Allergy Verified 02/12/24 00:33 <Migdalia Maxwell PA-C - Last Filed: 02/12/24 03:14> Review of Systems Review of Systems: All systems reviewed & are unremarkable except as noted in HPI and below <Migdalia Maxwell PA-C - Last Filed: 02/12/24 03:14> [facility] Past Medical History Medical History: Medical History Arthritis Benign essential hypertension Gastroesophageal reflux disease without esophagitis Hyperlipidemia ROMELIA (obstructive sleep apnea) Type 2 diabetes mellitus without complication, without long-term current use of insulin <Migdalia Maxwell PA-C - Last Filed: 02/12/24 03:14> Surgical History Surgical History: Surgical History H/O hemorrhoidectomy H/O: hysterectomy History of bunionectomy of both great toes <Migdalia Maxwell PA-C - Last Filed: 02/12/24 03:14> Family History Family History: Family History Other Cerebrovascular accident Diabetes mellitus Family history of malignant neoplasm Hypertension <Migdalia Maxwell PA-C - Last Filed: 02/12/24 03:14> Social History Social History: Social History Smoking status: Never smoker Alcohol intake: never Substance use: never Substance use type: does not use Do You Feel Safe in your Home?: Yes Lack of Transportation: YES Lack of Food: Never True Current Housing: I Have Housing Concerned About Future Housing: No Difficulty Paying Gas/Electric Bills: No Difficulty Paying for Meds: No Currently Unemployed: No Education: Decline to Answer Difficulty w/ Childcare or Family Care: No Living arrangements: with family Additional living arrangements comments: Occupation/Education: occupation Gender identity (if verbalized b
[2024-02-12 01:48] LABS: Basophils Percent Auto 0.4 % (0.2-1.2); Eosinophils Absolute Auto 0.5 K/mm3 (0-0.3); Eosinophils Percent Auto 5.5 % (0-4.4); Hematocrit 34.5 % (37.0-47.0); Hemoglobin 11.1 g/dL (12.0-15.0); Immature Granulocyte Absolute 0.04 K/mm3 (0.00-0.031); Immature Granulocyte Percent A 0.5 % (0-0.5); Lymphocytes Absolute Auto 2.41 K/mm3 (0.9-3.2); Lymphocytes Percent Auto 29.6 % (18.3-44.2); Mean Corpuscular HGB Conc 32.2 g/dl (32-36); Mean Corpuscular Hemoglobin 23.6 pg (26-34); Mean Corpuscular Volume 73.4 fl (80-100); Mean Platelet Volume 10.7 fl (7.4-10.4); Monocytes Absolute Auto 0.6 K/mm3 (0.1-0.6); Monocytes Percent Auto 6.9 % (2.6-8.5); Neutrophils Absolute Auto 4.7 K/mm3 (1.3-6.7); Neutrophils Percent Auto 57.1 % (45.5-73.1); Platelet Count Result 256 k/mm3 (150-375); Red Cell Distribution Width 15.7 % (11.5-14.5); White Blood Count 8.2 K/mm3 (4.5-10.0)
[2024-02-12] MEDS: ACETAMINOPHEN 500 MG TABLET 1000 MG PO (01:53)
[2024-02-12] MEDS: FAMOTIDINE 20 MG/2 ML VIAL IV PUSH (01:53)
[2024-02-12] MEDS: BELLADONNA ALK/PHENOB ELIX 10 ML, MAG HYDROX/ALUMINUM HYD/SIMETH 30 ML, LIDOCAINE HCL 2... PO (01:53)
[2024-02-12 02:00] LABS: Alanine Aminotransferase 16 U/L (6-35); Albumin Level 4.6 g/dL (3.5-5.1); Alkaline Phosphatase 77 U/L (38-126); Anion Gap 9 mmol/L (4-12); Aspartate Amino Transferase 25 U/L (14-36); Bilirubin,Total 0.2 mg/dL (0.2-1.3); Blood Urea Nitrogen 14 mg/dL (7-17); Calcium 9.8 mg/dL (8.4-10.2); Carbon Dioxide 29 mmol/L (22-30); Chloride 100 mmol/L (98-107); Estimated CRCL calculation 79 ml/min; Estimated Glomerular Filt Rate > 60; Glucose 123 mg/dL (65-110); Lipase 87 U/L (23-300); Potassium 3.5 mmol/L (3.4-5.0); Sodium 138 mmol/L (137-145)
[2024-02-12 02:01] VITALS: BP 153/84; PULSE 73; RESP 16; TEMP 36.6; O2SAT 100
[2024-02-12 02:03] LABS: INR 0.9; Prothrombin Time 12.7 Seconds (11.1-14.7)
[2024-02-12 02:05] LABS: Partial Thromboplastin Time 26.1 Seconds (22.3-36.8)
[2024-02-12 02:11] LABS: NT Pro B Type Natriuretic Pept 80 pg/mL (19.9-100); Troponin I < 0.012 ng/mL (0.000-0.034)
[2024-02-12 02:15] LABS: Burr Cells 1+; Hypochromasia 1+; Ovalocytes 1+; Platelet Estimate Adequate (Adequate); Schistocytes Rare
[2024-02-12 04:00] VITALS: BP 147/83; PULSE 72; RESP 16; TEMP 36.9; O2SAT 100
== END 2024-02-12 04:54 | disposition home or self-care (01) ==
PROVIDERS: Physician Assistant; Emergency Provider Emergency Medicine; PCP Family Medicine
DX: M54.2 Cervicalgia (principal); R07.89 Other chest pain; I10 Essential (primary) hypertension; E11.9 Type 2 diabetes mellitus without complications; E78.5 Hyperlipidemia, unspecified; G47.33 Obstructive sleep apnea (adult) (pediatric); K21.9 Gastro-esophageal reflux disease without esophagitis; M19.90 Unspecified osteoarthritis, unspecified site; Z90.710 Acquired absence of both cervix and uterus; Z79.84 Long term (current) use of oral hypoglycemic drugs; Z79.899 Other long term (current) drug therapy; R94.31 Abnormal electrocardiogram [ECG] [EKG]; E23.6 Other disorders of pituitary gland
CPT/HCPCS: 36415; 70496; 70498; 71045; 71275; 80053; 83690; 83880; 84484; 85025; 85610; 85730; 93005; 96374; 99284; A9270; Q9967

== ENCOUNTER 2024-02-18 09:07 | Outpatient (CLI) | payer OTHER, SELFPAY ==
[2024-02-18 16:21] LABS: Creatinine Urine 117.6 mg/dL
[2024-02-18 16:25] LABS: Microalbumin Urine Random 14.1 mg/L (0-16.7)
[2024-02-18 17:56] LABS: Alanine Aminotransferase 15 U/L (6-35); Albumin Level 4.5 g/dL (3.5-5.1); Alkaline Phosphatase 78 U/L (38-126); Anion Gap 10 mmol/L (4-12); Aspartate Amino Transferase 44 U/L (14-36); Bilirubin,Total 0.3 mg/dL (0.2-1.3); Blood Urea Nitrogen 13 mg/dL (7-17); Calcium 9.7 mg/dL (8.4-10.2); Carbon Dioxide 32 mmol/L (22-30); Chloride 98 mmol/L (98-107); Cholesterol 134 mg/dL (0-200); Estimated Glomerular Filt Rate > 60; Glucose 133 mg/dL (65-110); HDL Direct 50 mg/dL; Potassium 3.6 mmol/L (3.4-5.0); Sodium 140 mmol/L (137-145); Triglycerides 104 mg/dL (<150)
[2024-02-18 18:07] LABS: LDL Cholesterol Direct 60 mg/dL
== END 2024-02-18 09:08 | disposition home or self-care (01) ==
LOC: ANHGOSHLAB 09:08
PROVIDERS: PCP Family Medicine; Visit Provider Family Medicine
DX: E11.9 Type 2 diabetes mellitus without complications (principal)
CPT/HCPCS: 36415; 80053; 80061; 82043; 83036

== ENCOUNTER 2024-03-25 08:52 | Outpatient (CLI) | payer OTHER, SELFPAY ==
--- NOTE | ~2024-03-25 | MM_ITS ---
EXAMINATION: MM screening khushboo BI w manuel HISTORY: Screening TECHNIQUE: Craniocaudal and mediolateral oblique 3-D tomosynthesis images were obtained and synthetic 2-D images were generated. CAD analysis was submitted and interpreted. COMPARISON: Comparison to multiple prior studies sequentially, with oldest reviewed study dated 05/24. BREAST PARENCHYMAL COMPOSITION: Not Dense: The breasts are almost entirely fatty. FINDINGS: There is an enlarging left breast mass in the lower central aspect of the left breast, midd le third. The right breast is stable without evidence for malignancy. IMPRESSION: 1. Enlarging left breast mass, lower central left breast. 2. Additional mammographic views and possible breast ultrasound are recommended. BI-RADS Category 0: Incomplete: Needs additional imaging evaluation. Reviewed, dictated and finalized at location B. IMPRESSION: 1. Enlarging left breast mass, lower central left breast. 2. Additional mammographic views and possible breast ultrasound are recommended . BI-RADS Category 0: Incomplete: Needs additional imaging evaluation.
== END 2024-03-25 08:53 | disposition home or self-care (01) ==
LOC: ANHIMG 08:53
PROVIDERS: PCP Family Medicine; Visit Provider Family Medicine
DX: Z12.31 Encounter for screening mammogram for malignant neoplasm of breast (principal); R92.8 Other abnormal and inconclusive findings on diagnostic imaging of breast
CPT/HCPCS: 77063; 77067

== ENCOUNTER 2024-04-08 14:56 | Outpatient (CLI) | payer OTHER, SELFPAY ==
--- NOTE | ~2024-04-08 | XR_ITS ---
EXAMINATION: XR lumbar spine min 4V DATE: 04/08/2024 15:23 INDICATION: Lumbago with sciatica, left side. TECHNIQUE: 5 views of lumbar spine were obtained. COMPARISON: Lumbar spine radiographs 10/29/2021, chest 2 views 08/03/2023 FINDINGS: There is 3 mm anterolisthesis of L3 on L4 and L4 on L5. L5 is a transitional segment. Verte bral body heights are normal. There is mildly decreased disc height at L3-L4 and moderately decreased disc height at L4-L5. There is multilevel severe facet joint osteoarthritis. IMPRESSION: 1. Moderate lumbar spondylosis. Reviewed, dictated and finalized at location A.
--- NOTE | ~2024-04-08 | XR_ITS ---
EXAMINATION: XR hip RT 2V w AP pelvis DATE: 04/08/2024 15:23 INDICATION: Right pelvic pain. TECHNIQUE: An anteroposterior view the pelvis and 2 views of right hip were obtained. COMPARISON: None. FINDINGS: Alignment is normal. No fracture. There is mild osteoarthritis of the hips. Osseous pubis i s noted. There is moderate osteoarthritis of the sacroiliac joints. IMPRESSION: 1. Mild osteoarthritis of the hips. Reviewed, dictated and finalized at location A.
== END 2024-04-08 14:57 | disposition home or self-care (01) ==
LOC: ANHIMG 15:02
PROVIDERS: PCP Family Medicine; Visit Provider Family Medicine
DX: M54.42 Lumbago with sciatica, left side (principal); M76.30 Iliotibial band syndrome, unspecified leg; M47.896 Other spondylosis, lumbar region; M16.0 Bilateral primary osteoarthritis of hip
CPT/HCPCS: 72110; 73502

== ENCOUNTER 2024-04-13 13:12 | Outpatient (CLI) | payer OTHER, SELFPAY ==
--- NOTE | ~2024-04-13 | MMUS_ITS ---
EXAMINATION: MM diagnostic khushboo LT w manuel, US breast LT limited HISTORY: Follow-up left breast mass TECHNIQUE: Additional 3-D tomosynthesis images of the left breast were performed and synthetic 2-D im ages were generated. CAD analysis was submitted and interpreted. High resolution Limited left breast ultrasound was performed. COMPARISON: Comparison to multiple prior studies sequentially, with oldest reviewed study dated 05/24. BREAST PARENCHYMAL COMPOSITION: Not Dense: The breasts are almost entirely fatty. FINDINGS: MAMMOGRAPHIC FINDINGS: There is an enlarging mass in the lower central aspect of the left breast with circumscribed margins, middle third. There are no suspicious calcifications or architectural distortion. ULTRASOUND: Limited left breast ultrasound: At 6:00, 6 cm from the nipple there is an 8 mm cyst corresponding to the mammographic finding. No suspicious masses to suggest malignancy. IMPRESSION: 1. No evidence for malignancy in the left breast. Benign finding. 2. Routine yearly screening mammogram and regular clinical breast examination are recommended. BI-RADS Category 2: Benign finding(s). Reviewed, dictated and finalized at location B. IMPRESSION: 1. No evidence for malignancy in the left breast. Benign finding. 2. Routine yearly screening mammogram and regular clinical breast examination a re recommended. BI-RADS Category 2: Benign finding(s).
== END 2024-04-13 13:13 | disposition home or self-care (01) ==
LOC: ANHIMG 13:13
PROVIDERS: PCP Family Medicine; Visit Provider Family Medicine
DX: R92.8 Other abnormal and inconclusive findings on diagnostic imaging of breast (principal)
CPT/HCPCS: 76642; 77061; 77065; G0279

== ENCOUNTER 2024-04-20 10:45 | Outpatient (CLI) | payer OTHER, SELFPAY ==
[2024-04-20 22:05] LABS: Hemoglobin A1C 7.7 % (<5.7)
== END 2024-04-20 10:46 | disposition home or self-care (01) ==
PROVIDERS: PCP Family Medicine; Visit Provider Family Medicine
DX: E11.9 Type 2 diabetes mellitus without complications (principal)
CPT/HCPCS: 36415; 83036

== ENCOUNTER 2024-04-29 08:02 | Outpatient (CLI) | payer OTHER, SELFPAY ==
--- NOTE | ~2024-04-29 | DEXA_ITS ---
Bone Density Report Name: SAM TURCIOS Age: 69 Sex: Female Ethnicity: Black Date of : 1955 Indication: postmenopausal; screening for osteoporosis; height loss; asthma or emphysema; hysterectomy; Referring Provider: GELY GERMAIN Study: Bone densitometry was performed. Exam Date: April 29, 2024 Accession number: [id number] Bone Density: Region BMD T-score Z-score Classification AP Spine(L1, L2, L3) 0.988 -0.3 0.9 Normal Femoral Neck (Left) 0.889 0.4 0.9 Normal Total Hip (Left) 1.058 1.0 1.2 Normal Femoral Neck (Right) 0.836 -0.1 0.6 Normal Total Hip (Right) 1.089 1.2 1.4 Normal Total Hip Mean 1.073 1.1 1.3 Normal World Health Organization criteria for BMD impression classify patients as: Normal (T-score at or above -1.0), Osteopenia (T-score between -1.0 and -2.5), or Osteoporosis (T-score at or below -2.5). 10-year Fracture Risk: FRAX not reported because: All T-scores for Spine Total, Hip Total, Femoral Neck at or above -1.0 Previous Exams: Region Exam Age BMD T-score BMD Change BMD Change Date g/cm2 vs Baseline vs Previous AP Spine (L1-L3) 04/29/2024 69 0.988 -0.3 -0.012 (-1.2%) -0.012 (-1.2%) 02/27/2022 66 1.000 -0.2 Total Hip(Left) 04/29/2024 69 1.058 1.0 -0.040 (-3.6%) -0.040 (-3.6%) 02/27/2022 66 1.098 1.3 Total Hip(Right) 04/29/2024 69 1.089 1.2 -0.016 (-1.5%) -0.016 (-1.5%) 02/27/2022 66 1.105 1.3 *Denotes significance at 95% confidence level, LSC for AP Spine = 0.022 g/cm2, LSC for Total Hip = 0.027 g/cm2 Clinical Information Provided by Patient: Has used the following medications: Vitamin D Has the following medical conditions: Asthma or Emphysema, Hysterectomy Patient maximum height was 67 Menopause Age: 41 Drinks caffeinated beverages Onset of menses at age 13 Number of children 4 Impression: The patient has normal bone mass. The BMD for the Total Hip(Left) decreased, changing by -3.6% since the last DXA exam. Discussion: BONE DENSITY IS ABOVE THE MINIMUM DESIRABLE LEVEL AT ALL SKELETAL SITES TESTED. This patient?s bone mineral density is above the minimum desirable level (T-score -1.0 or better) at all sites measured. The patient should follow a healthful lifestyle (good nutrition with adequate calcium and vitamin D, and appropriate weight-bearing exercise). Follow-Up: Consider repeating this study in 3 to 4 years to reassess this patient's status, or sooner if there is some new clinical indication. Reported by: NILESH on 04/29/2024 8:37:00 AM. Reviewed, dictated and finalized at location ADisha POTTS
== END 2024-04-29 08:03 | disposition home or self-care (01) ==
PROVIDERS: PCP Family Medicine; Visit Provider Family Medicine
DX: Z78.0 Asymptomatic menopausal state (principal); Z13.820 Encounter for screening for osteoporosis
CPT/HCPCS: 77080

== ENCOUNTER 2024-05-18 08:33 | Outpatient (CLI) | payer OTHER, SELFPAY ==
--- NOTE | ~2024-05-18 | MR_ITS ---
Procedure: MR lumbar spine wo con Ordering provider: Tiffanie Yousif, [employer] History: . Lumbar radicular pain . Comparison: None. Technique: MRI lumbar spine without contrast. FINDINGS: SPINAL CORD: The spinal cord ends the level of L2-L3. VERTEBRAL BODIES: Normal height and alignment. No compression fracture. Normal marrow signal. DISK SPACES: Degenerative disc changes seen at the level of L5-S1. Endplate changes are seen at the l evel of L3-L4. T12-L1, L1-L2, L2-L3, and L3-L4: Normal. L4-L5: Severe spinal canal stenosis. Diffuse disc bulge. Thickening of the ligamenta flava with bilat eral facet joint disease. Narrowing of the foramina with bilateral nerve root compression. L5-S1:Severe spinal canal stenosis. Diffuse disc bulge. Thickening of the ligamenta flava with bilate ral facet joint disease. Narrowing of the foramina with bilateral nerve root compression. PARASPINOUS SOFT TISSUES: Normal. IMPRESSION: No compression fracture. Severe spinal canal stenosis with bilateral narrowing of the foramina and nerve root compression at t he level of L4-L5 and L5-S1. Reviewed, dictated and finalized at location A. SIFIER IMPRESSION: No compression fracture. Severe spinal canal stenosis with bilateral narrowing of the foramina and nerve root compression at the level of L4-L5 and L5-S1.
== END 2024-05-18 08:34 | disposition home or self-care (01) ==
LOC: GOSHIMG 08:33
PROVIDERS: PCP Family Medicine; Visit Provider Nurse Practitioner Family
DX: M54.16 Radiculopathy, lumbar region (principal)
CPT/HCPCS: 72148

== ENCOUNTER 2024-06-18 10:54 | Outpatient (CLI) | payer OTHER, SELFPAY ==
[2024-06-18 12:13] LABS: Alanine Aminotransferase 15 U/L (6-35); Albumin Level 4.7 g/dL (3.5-5.1); Alkaline Phosphatase 73 U/L (38-126); Anion Gap 5 mmol/L (4-12); Aspartate Amino Transferase 32 U/L (14-36); Bilirubin,Total 0.6 mg/dL (0.2-1.3); Blood Urea Nitrogen 22 mg/dL (7-17); Carbon Dioxide 29 mmol/L (22-30); Chloride 105 mmol/L (98-107); Cholesterol 168 mg/dL (0-200); Estimated Glomerular Filt Rate > 60; Glucose 133 mg/dL (65-110); HDL Direct 58 mg/dL; Potassium 3.4 mmol/L (3.4-5.0); Sodium 139 mmol/L (137-145); Triglycerides 45 mg/dL (<150)
[2024-06-18 12:24] LABS: LDL Cholesterol Direct 75 mg/dL
[2024-06-18 12:28] LABS: Creatinine Urine 263.4 mg/dL
[2024-06-18 12:36] LABS: MALB Creatinine Ratio 9.6 mg/g (0-30); Microalbumin Urine Random 25.3 mg/L (0-16.7)
[2024-06-18 14:07] LABS: Hemoglobin A1C 7.6 % (<5.7)
== END 2024-06-18 10:55 | disposition home or self-care (01) ==
LOC: ANHGOSHLAB 10:56
PROVIDERS: PCP Family Medicine; Visit Provider Family Medicine
DX: E11.9 Type 2 diabetes mellitus without complications (principal)
CPT/HCPCS: 36415; 80053; 80061; 82043; 83036

== ENCOUNTER 2024-08-30 08:44 | Outpatient (CLI) | payer OTHER, SELFPAY ==
--- OUTSIDE RECORDS SUMMARY | 2024-08-30 09:22 | XMS_ITS | Clinical Summary ---
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 Gender Identity Not on file Sexual Orientation Not on file Plan of Treatment Health Maintenance Due Date Last Done Comments DEXA Bone Density 1955 Hepatitis C Virus (HCV) Screening 1955 TdaP Immunization 1955 Colonoscopy 2001 Colorectal Cancer Screening 2001 Cologuard 2006 Immunochemical Fecal Occult Blood 2006 Mammogram 2006 Pneumococcal Immunization (5 0+ years) (1 of 1 - PCV) 2006 Zoster Immunization (1 of 2) 2006 Influenza Immunization (#1) 02/22/202403/23, 09/09/2019 SARS-COV-2 Immunization ( - 2023- season) 2024 Respiratory Syncytial Virus (RSV) Immunization (Adult) (1 - 1-dose 75+ series) 2031 Hepatitis B Immunization Aged Out No longer eligible based on patient's age to complete this topic Meningococcal Immunization (ACWY) Aged Out No longer eligible b ased on patient's age to complete this topic Rotavirus Immunization Aged Out No lo nger eligible based on patient's age to complete this topic
--- OUTSIDE RECORDS SUMMARY | 2024-08-30 09:22 | XMS_ITS ---
Author Organization [facility]i Address [address] [place] [address] Care Team Providers Care Tax Compliance Manager Name Role Phone zzzzMigration, zzzzProvider Unavailable Unav ailable REASON FOR VISIT EMR-Robbi Encounters Encounter Location Date Provider Diagnosis [facility] [address] [address] [place] [address] 04/12/2023 zzzzProvider zzzzMigration Plan Of Treatment No Information Progress Notes * Regine BRANNON LDOB:1955 (69 yo F)Acc No.[id number]:04/12/2023 Patient: Viviana Regine JORGE :1955 A ge:68 Y S ex:Female Address:[address] [place] [address], [address] Subjective: * Chief Complaints: * E MR-Robbi * Medical History: * Surgical History: * Hospitalization/Major Diagno stic Procedure: * Medications: Objective: * Vitals: * Physical Examination: Assessment: Plan: * Treatment: * Procedure Codes: * * Date:
--- OUTSIDE RECORDS SUMMARY | 2024-08-30 09:22 | XMS_ITS ---
Author Organization 1 OF [facility] Address [address] [facility] [employer] [address] Care Team Providers Care Flue Tile Press Operator Name Role Phone Yvon Hyman M.D. Primary Care Provider Shandra vailable Oracio Aparna Unavailable [phone] Allergies No Known Allergies REASON FOR VISIT DFC (Diabetic foot care) Medications Medication SIG (Take, Route, Fr equency, Duration) Notes Start Date End Date Status Omeprazole Active amLODIPine Besylate Active metFORMIN HCl Active Multivitamin Active Aspirin Active hydroCHLOROthiazide Active Simvastatin Active Vital Signs Height 67 in 08/25/2024 Weight 197 lbs 08/25/2024 BMI 30.85 kg/m2 08/25/2024 Encounters Encounter Location Date Provider Diagnosis [facility] [address] [address] 08/25/2024 Aparna Narayanan Type 2 diabetes jeremiah itus with other diabetic neurological complication E11.49 ; Onychogryphosis L60.2 ; Nail dystrophy L60.3 and Callus of foot L84 Assessments Encounter Date Diagnosis (ICD Code) Assessment Notes Treatment Notes Treatment Clinical Notes Section Notes 08/25/2024 Type 2 diabetes mellitus with other diabetic neurological complication (ICD-10 - E11.49) Considering the associated comorbidities and physical exam findings today, this patient is at substantial risk of developing serious foot complications in the absence of regular and professional palliative foot care. 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 - L60.3) 08/25/2024 Callus of foot (ICD-10 - L84) Plan Of Treatment Treatment Notes Assessment Notes [...] with any concerns, Reason: Provider Name:Aparna Narayanan, 11/03/2024 11:40:00 AM, [address], [address], [place], [address], Procedure Notes * Category Sub-Category Detail Notes PALLIATIVE FOOT CARE: Callus paring: (91822) Si ngle callus as noted above reduced with a sterile scalpel blade, Nail debride (34614): Debridement of fiv e or less mycotic and/or hypertrophic nails, utilizing manual and electric debridement the affected nails were reduced the nails in length and thickness with curettage of debris from nail margins performed as needed. Nail thickness reduced by:, 10% Dystrophic nail trim (G0127) All dystrop hic nails reduced in length and thickness with curettage of debris from nail margins as needed Progress Notes * Yue TURCIOSie LDOB:1955 (69 yo F)Acc No.[id number]:08/25/2024 Progress Note Patient: Regine WHITE Provider: Chad Narayanan DPM :1955 A ge:69 Y S ex:Female Date:08/25/2024 Address:[address] [place], [place] [id number] Pcp:Yvon Hyman M.D. Subjective: * Chief Complaints: * D FC (Diabetic foot care) * HPI: Kandy Chaves assisting with visit:: Chart Prep Tanmay SCHMIDT/Rooming: Tanmay ferrara reason for visit:: Diabetic Foot Care: 7 8 y/o diabetic female RTO for diabetic foot care. Reports no acute issues with nails or calluses today. She continues to have issues with sciatica and sometimes gets tingling sensations in the feet. Reports last HA1c of 7.0. * ROS: * MULTI-SYSTEM REVIEW:: Nausea, fever or chills d enies. b urning, tingling,numbness in feet a dmits. C urrently dealing with infection, flu or open wound: d enies.?Any change in medications since last visit? d enies. A ny changes in medical history/hospitalizations? d enies. * Medical History: * Surgical History: b ilateral bunion * Hospitalization/Major Diagno stic Procedure: * Family History: diabetes, RA, high blood pressure. * Medications: T akingAspirin Multivitamin Simvastatin hydroCHLOROthiazide metFORMIN HCl amLODIPine Besylate Omeprazole Medication List reviewed and reconciled with the patientTaking Aspirin Taking Multivitamin Taking Simvastatin Taking hydroCHLOROthiazide Taking metFORMIN HCl Taking amLODIPine Besylate Taking Omeprazole Medication List reviewed and reconciled with the patient * Allergies: N .K.D.A.no[Allergies Verified] Objective: * Vitals: W t:197lbs, Wt-k.36 kg, Ht: 67 in, BMI:30.85Index. * Examination: G eneral Examination: Constitutional / Appearance: N o acute distress , Well nourished, Appropriate personal hygiene. Mental status: C ooperative, Oriented to person, place and time, Mood and affect: normal, Judgement and intellect: normal with appropriate response to questions. Shoes today: S lip on shoes. DIABETIC FOOT EXAM L ower Extremity Neurological Exam performed:?Yes L ower Extremity VASCULAR: : Pulses: D [...] debris, subungual hyperkeratosis.. Hyperkeratotic lesions LEFT foot: P lantar hallux. Hyperkeratotic lesions RIGHT foot: n o significant hpk lesions noted. L ower Extremity NEURO: : Neurological status: S tates tingling in bilateral feet at times. General sensation appears intact, bilateral. Muscle tone w ithin normal limits, bilateral. Monofilament test (10 gram pressure) E xam of 08/25/2024: r evealed intact sensation to, entire foot, bilateral. Vibration perception: E xam of 08/25/2024: n oted intact per evaluation with 128Hz tuning fork applied to distal hallux compared to ipsilateral medial malleolus, @ bilateral feet. L ower Extremity MSK: : Gait Gait unremarkable with normal posture, propulsion and balance. Foot type: B ilateral lower extremity exhibits relatively decreased medial arch. Muscle strength: 5 /5, all 4 quadrants tested, bilateral.? Left lower extremity inspection and palpation: N o palpable masses or nodules noted. Adequate range of motion noted to the joints.. Right lower extremity inspection and palpation: N o palpable masses or nodules noted. A dequate range of motion noted to the joints.. Assessment: * Assessment: 1. T ype 2 diabetes mellitus with other diabetic neurological complication - E11.49 (Primary)? 2. O nychogryphosis - L60.2 3 . N ail dystrophy - L60.3 4 . C allus of foot - L84 Plan: * Treatment: * Procedures: P ALLIATIVE FOOT CARE:: Callus paring: ( 26958) Single callus as noted above reduced with a sterile scalpel blade,. Nail debride (86315): D ebridement of five or less mycotic [...] margins as needed. * Procedure Codes: 1 1055 TRIM SKIN [id number] DEBRIDE NAIL, 1-5, Modifiers: 59 G0127 TRIMMING DYSTROPHIC NAILS ANY #, Modifiers: 59 * Preventive Medicine: Counseling: C are goal follow-up plan: BMI counseling provided to patient:?Lifestyle education Screenings: F ALL RISK SCREENING Fall Risk Assessment: N o falls in the past year * Follow Up: 1 0-12 weeks or contact office PRN with any concerns * Images: * Y LOADER Sign off status: Completed true * Provider: Chad Narayanan DPM Date: 0 08/25/2024 Generated for Bea Longoria/Saadia on: 0 08/30/2024 09:22 AM CDT History and Physical Notes * HPI (History of Present Illness) Category Sub-Category Detail Notes Category Not es Primary reason for visit: Diabetic Foot Care: 69 y/o diabetic female RTO for diabetic foot care. Reports no acute issues with nails or calluses today. She continues to have issues with sciatica and sometimes gets tingling sensations in the feet.Reports last HA1c of 7.0 MA assisting with visit: HPI/Rooming: Irshan Chart Prep Irshan Examination Category Sub-Category Detail Notes Category Not es General Examination Mental status: Cooperative, Oriented to person, place and time, Mood and affect: normal, Judgement and intellect: normal with appropriate response to questions Shoes today: Slip on shoes Constitutional / Appearance: No acute di stress , Well nourished, Appropriate personal hygiene DIABETIC FOOT EXAM Lower Extremity Neurological Exam performed:: Yes Lower Extremity VASCULAR: Venous insufficiency edema: absent, bilateral Pulses: DP and PT pulses, di minished, bilateral Temperature gradient: warm from proximal to distal, bilateral Pedal hair: absent, bilateral Capillary refill at distal toes less kait n 5 seconds, bilateral Lower Extremity NEURO: Monofilament test (10 gram pressure) Exam of 08/25/2024: revealed intact sensation to, entire foot, bilateral Vibration perception: Exam of 08/25/2024: noted intact per evaluation with 128Hz tuning fork applied to distal hallux compared to ipsilateral medial malleolus, @ bilateral feet General sensation appears intact, bilate ral Muscle tone within normal limits , bilateral Neurological status: States tingling in bilateral feet at times Lower Extremity MSK: Muscle strength: 5/5, all 4 quadr ants tested, bilateral Foot type: Bilateral lower extr emity exhibits relatively decreased medial arch Left lower extremity inspect ion and palpation: No palpable masses or nodules noted. Maureen quate range of motion noted to the joints. Right lower extremity inspec tion and palpation: No palpable masses or nodules noted. Maureen quate range of motion noted to the joints. [...] debris, subungual hyperkeratosis. Hyperkeratotic lesions LEFT foot: Planta r hallux Hyperkeratotic lesions RIGHT foot: no si gnificant hpk lesions noted
--- OUTSIDE RECORDS SUMMARY | 2024-08-30 09:22 | XMS_ITS | Referral Summary ---
Author Organization [facility] [address] Address [address] [place] [address] Care Team Providers Care Ham Marker Name Role Phone Sg Young Primary Care Provider [phone] Allergies No known active allergies Medications brimonidine-salma olol (COMBIGAN) 0.2-0.5 % ophthalmic solution instill 1 drop by ophthalmic route every 12 hours into affected eye(s) 0 0 5 Active fluticasone (FLONASE) 50 mcg/actuation nasal spray spray 1 spray by intranasal route every day in each nostril 0 spray 0 5 Active omeprazole 20 mg tablet,delayed release (DR/EC) take 1 by Oral route once 0 0 5 Active meloxicam (MOBIC) 7.5 mg tablet take 1 tablet by oral route every day 0 0 6 Active cetirizine (ZyrTEC) 10 mg tablet take 1 tablet by oral route every day 0 0 5 Active amLODIPine (NORVASC) 5 mg tablet take 1 tablet by oral route every day 0 0 5 Active hydroCHLOROthia zide (HYDRODIURIL) 25 mg tablet take 1 tablet by oral route every day 0 0 5 Active Active Problems Problem Noted Date Diagnosed Date Gastroesophageal reflux disease without esophagi tis 03/08/2016 Overview (09/26/2016): GERD without esophagitis Chest pain 09/07/2014 Overview (09/26/2016): Chest pain Obstructive sleep apnea syndrome 09/07/2014 Overview (09/26/2016): ROMELIA (obstructive sleep apnea) Adiposity 09/07/2014 Overview (09/26/2016): Obesity Benign hypertension 09/07/2014 Overview (09/26/2016): HTN (hypertension), benign Dyspnea on exertion 09/07/2014 Overview (09/26/2016): ALLEN (dyspnea on exertion) Social History Tobacco Use Types Packs/Day Years Used Date Smoking Tobacco: Never Assessed Comments Unknown Sex and Gender Information Value Date Recorded Sex Assigned at Not on file 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 Gender Identity Not on file Sexual Orientation Not on file Last Filed Vital Signs Vital Sign Reading Time Taken Comments Blood Pressure 138/80 03/08/2016 3:13 PM CDT Pulse 74 03/08/2016 3:13 PM CDT Temperature - - Respiratory Rate - - Oxygen Saturation - - Inhaled Oxygen Concentration - - Weight 97.1 kg (214 lb) 03/08/2016 3:13 PM CDT Height 165.1 cm (5' 5 ) 03/08/2016 3:13 PM CDT Body Mass Index 35.61 03/08/2016 3:13 PM CDT Plan of Treatment Not on file Insurance [facility] HMO/PPO Address: [address] [address] [place] [address] Care Teams Ham Marker Relationship Specialty Start Date End Date Sg Young DO PCP - General Family Medicine 07/31/21
--- OUTSIDE RECORDS SUMMARY | 2024-08-30 09:22 | XMS_ITS | Patient Health Record ---
Author Organization [facility] Address [address] [place] [address] Support Name Relationship Address Phone Regine Brannon Guarantor Unknown [phone] Reason For Referral No Information Plan Of Treatment No Information Insurance Providers Payer Name Payer Address Payer Phone Subscriber Number Group Number Insured Name Patient Relationship to Insured Coverage Start Date Coverage End Date DO NOT USE [id number] Regine Brannon Self - patient is the insured 2010
--- OUTSIDE RECORDS SUMMARY | 2024-08-30 09:23 | XMS_ITS ---
Author Organization [facility] Address [address] [place] [address] Care Team Providers Care Colloid Mill Operator Name Role Phone Yvon Hyman M.D. Primary Care Provider Shandra vailable Aparna Narayanan Unavailable [phone] REASON FOR VISIT DFC (Diabetic foot care) Encounters Encounter Location Date Provider Diagnosis [facility] [address] [place] [address] 08/18/2024 Aparna Narayanan Plan Of Treatment Next Appt Details Provider Name:Aparna Narayanan, 11/03/2024 11:40:00 AM, [address], [place], [address], Progress Notes * Regine TURCIOS LDOB:1955 (69 yo F)Acc No.[id number]:08/18/2024 Progress Note Patient: Regine WHITE Provider: Chad Narayanan DPM :1955 A ge:69 Y S ex:Female Date:08/18/2024 Address:[address] [place] [address] Pcp:Yvon Hyman M.D. Subjective: * Chief Complaints: * 1 . DFC (Diabetic foot care). * Medical History: Objective: * Vitals: Assessment: Plan: * Treatment: * Images: * Electronic signature of Madelin Narayanan DPM on 08/30/2024 at 09:23 AM CDT Sign off status: Pending * Provider: Chad Narayanan DPM Date: 0 08/18/2024 Generated for Bea Longoria/Saadia on: 0 08/30/2024 09:23 AM CDT
--- OUTSIDE RECORDS SUMMARY | 2024-08-30 09:23 | XMS_ITS | Clinical Summary ---
Author Organization [facility] [address] Address [address] [place] [address] Care Team Providers Care Baggage Handler Name Role Phone Sg Young Primary Care Provider [phone] Allergies No known active allergies Medications brimonidine-salma [...] 09/07/2014 Overview (09/26/2016): ALLEN (dyspnea on exertion) Family History Medical History Relation Name Comments Stroke Father 2 Stroke; Relation Name Status Comments Father 1 (Age 83) Father 2 Social History Tobacco Use Types Packs/Day Years Used Date Smoking Tobacco: Never Assessed Comments Unknown Sex and Gender Information Value Date Recorded Sex Assigned at Not on file 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 Gender Identity Not on file Sexual Orientation Not on file Obstetrics History Last Filed Vital Signs Vital Sign Reading [...] 03/08/2016 3:13 PM CDT Plan of Treatment Health Maintenance Due Date Last Done Comments Breast Cancer Screening-Mammogram 1955 Colon Cancer Screening-Colonoscopy 1955 Depression Screening 1955 Fall Risk Assessment 1955 Hepatitis C Screening 1955 Osteoporosis Screening-Bone Density Scan 1955 DTaP/Tdap/Td Vaccine (1 - Tdap) 1967 Hepatitis B Screening 1974 Pneumococcal vaccine 65+ (1 of 1 - PCV) 2006 Zoster Vaccine (1 of 2) 2006 Well Visit 65+ 2021 Covid-19 Vaccine ( season) 2024, 08/05/2020 Influenza Vaccine (#1) 2024 04/05/2020, 2019 Insurance CHOICE PLUS Care Teams Baggage Handler Relationship Specialty Start Date End Date Sg Young DO PCP - General Family Medicine 07/31/21
--- OUTSIDE RECORDS SUMMARY | 2024-08-30 09:23 | XMS_ITS ---
Author Organization [facility] Address [address] [place] [address] Care Team Providers Care Roundhouse Firer/Fireman Name Role Phone zzzzMigration, zzzzProvider Unavailable Unav ailable REASON FOR VISIT EMR-Robbi Encounters Encounter Location Date Provider Diagnosis [facility] [address] [place] [address] 04/13/2023 zzzzProvider zzzzMigration Plan Of Treatment No Information Progress Notes * Regine BRANNON LDOB:1955 (69 yo F)Acc No.[id number]:04/13/2023 Patient: Viviana Regine JORGE :1955 A ge:68 Y S ex:Female Address:[address] [place] [address], [address] Subjective: * Chief Complaints: * E MR-Robbi * Medical History: * Surgical History: * Hospitalization/Major Diagno stic Procedure: * Medications: Objective: * Vitals: * Physical Examination: Assessment: Plan: * Treatment: * Procedure Codes: * * Date:
[2024-08-30 14:26] LABS: Alanine Aminotransferase 18 U/L (6-35); Albumin Level 4.4 g/dL (3.5-5.1); Alkaline Phosphatase 68 U/L (38-126); Anion Gap 10 mmol/L (4-12); Aspartate Amino Transferase 47 U/L (14-36); Bilirubin,Total 0.4 mg/dL (0.2-1.3); Blood Urea Nitrogen 19 mg/dL (7-17); Calcium 9.6 mg/dL (8.4-10.2); Carbon Dioxide 27 mmol/L (22-30); Chloride 103 mmol/L (98-107); Estimated Glomerular Filt Rate > 60; Glucose 123 mg/dL (65-110); Potassium 3.6 mmol/L (3.4-5.0); Sodium 140 mmol/L (137-145)
[2024-08-30 17:19] LABS: Hemoglobin A1C 7.3 % (<5.7)
== END 2024-08-30 08:45 | disposition home or self-care (01) ==
PROVIDERS: PCP Family Medicine; Visit Provider Family Medicine
DX: E11.9 Type 2 diabetes mellitus without complications (principal)
CPT/HCPCS: 36415; 80053; 83036

== ENCOUNTER 2024-10-26 08:45 | Outpatient (CLI) | payer OTHER, SELFPAY ==
--- OUTSIDE RECORDS SUMMARY | 2024-10-26 09:07 | XMS_ITS ---
Author Organization [facility] Address [address] [facility] [address] [address] Care Team Providers Care Fashion Consultant Name Role Phone Yvon Hyman M.D. Primary Care Provider Shandra vailable Oracio Aparna Unavailable [phone] Allergies No Known Allergies REASON FOR VISIT [...] Provider Diagnosis [facility] [address] [address] 08/25/2024 Aparna Narayanan Type 2 diabetes jeremiah [...] AM, [address], [place], [address], Procedure Notes * Category Sub-Category Detail Notes PALLIATIVE FOOT CARE: Callus paring: (02555) Si ngle callus as noted above reduced with a sterile scalpel blade, Nail debride (57833): Debridement of fiv e or less mycotic [...] * Yue TURCIOSie LDOB:1955 (69 yo F)Acc No.[id number]:08/25/2024 Progress Note Patient: Regine WHITE Provider: Chad Narayanan DPM :1955 A ge:69 Y S ex:Female Date:08/25/2024 Address:[address] [place], [place] [address] Pcp:Yvon Hyman M.D. Subjective: * Chief Complaints: [...] P ALLIATIVE FOOT CARE:: Callus paring: ( 99110) Single callus as noted above reduced with a sterile scalpel blade,. Nail debride (80046): D ebridement of five or less mycotic [...] * Procedure Codes: 1 1055 TRIM SKIN [id number] DEBRIDE NAIL, 1-5, Modifiers: 59 G0127 TRIMMING DYSTROPHIC NAILS ANY #, Modifiers: 59 * Preventive Medicine: Counseling: C are goal follow-up plan: BMI counseling provided to patient:?Lifestyle education Screenings: F ALL RISK SCREENING Fall Risk Assessment: N o falls in the past year * Follow Up: 1 0-12 weeks or contact office PRN with any concerns * Images: * S MERCHANDISER Sign off status: Completed true * Provider: Chad Narayanan DPM Date: 0 08/25/2024 Generated for Bea Longoria/Saadia on: 0 10/26/2024 09:07 AM CDT History and Physical Notes * [...]
--- OUTSIDE RECORDS SUMMARY | 2024-10-26 09:07 | XMS_ITS | Patient Health Record ---
Author Organization [address] [facility] Address [address] [address] Care Team Providers Care Clinical Transformation Specialist Name Role Phone Yvon Hyman M.D. Primary Care Provider Shandra dellAparna Nieto Unavailable [phone] Allergies No Known Allergies Reason For Referral No Information Medications Medication SIG (Take, Route, Fr equency, Duration) Notes Start Date End Date Status Omeprazole Active amLODIPine Besylate Active metFORMIN HCl Active hydroCHLOROthiazide Active Simvastatin Active Multivitamin Active Aspirin Active Social History Tobacco Use: Social History Observation Description Date Details (start date - stop date) Never Smoker NA - NA Tobacco Use/Smoking Question Answer Notes Are you a nonsmoker Problems Problem Type SNOMED Code ICD Code Onset Dates Problem Status W/U Status Risk Notes Problem 830265057 Porokeratosis (Q82.8) Active confirmed Problem 078906549 Type 2 diabetes mellitus with other diabetic neurological complication (E11.49) Active confirmed Problem 392568520 Type 2 diabetes mellitus without complication, without long-term current use of insulin (E11.9) Active confirmed Vital Signs Height 67 in 08/25/2024 Weight 197 lbs 08/25/2024 BMI 30.85 kg/m2 08/25/2024 Encounters Encounter Location Date Provider Diagnosis [address] [facility] [address] [address] 12/31/2023 Aparna Narayanan Type 2 diabetes jeremiah itus with other diabetic neurological complication E11.[address] 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 [address] [address] 05/26/2024 Aparna Narayanan Type 2 diabetes jeremiah itus with other diabetic neurological complication E11.49 ; Onychogryphosis L60.2 and Nail dystrophy L60.[address] [facility] [address] [address] 08/25/2024 Aparna Narayanan Type 2 diabetes jeremiah itus with other diabetic neurological complication E11.49 ; Onychogryphosis L60.2 ; Nail dystrophy L60.3 and Callus of foot L84 Assessments Encounter Date Diagnosis (ICD Code) Assessment Notes Treatment Notes Treatment Clinical Notes Section Notes 12/31/2023 Type 2 diabetes mellitus with other diabetic neurological complication (ICD-10 - E11.49) Evaluation today included a review of medical history, review of systems, discussion of exam findings, and review of diagnoses and treatment options. Diabetic foot evaluation was performed. I discussed the importance of monitoring her feet routinely. I discussed the importance of keeping her blood sugar under control. Discussed signs and symptoms of peripheral neuropathy associated with diabetes. Discussed treatment options including topical and oral medications, if she begins to develop painful symptoms. 03/10/2024 Type 2 diabetes mellitus with other diabetic neurological complication (ICD-10 - E11.49) Considering the associated comorbidities and physical exam findings today, this patient is at substantial risk of developing serious foot complications in the absence of regular and professional palliative foot care. 05/26/2024 Type 2 diabetes mellitus with other diabetic neurological complication (ICD-10 - E11.49) Considering the associated comorbidities and physical exam findings today, this patient is at substantial risk of developing serious foot complications in the absence of regular and professional palliative foot care. 08/25/2024 Type 2 diabetes mellitus with other diabetic neurological complication (ICD-10 - E11.49) Considering the associated comorbidities and physical exam findings today, this patient is at substantial risk of developing serious foot complications in the absence of regular and professional palliative foot care. 08/25/2024 Onychogryphosis (ICD-10 - L60.2) 05/26/2024 Onychogryphosis (ICD-10 - L60.2) 03/10/2024 Onychogryphosis (ICD-10 - L60.2) 03/10/2024 Nail dystrophy (ICD-10 - L60.3) 05/26/2024 Nail dystrophy (ICD-10 - L60.3) 08/25/2024 Nail dystrophy (ICD-10 - L60.3) 08/25/2024 Callus of foot (ICD-10 - L84) Plan Of Treatment Next Appt Details Provider Name:Aparna Narayanan, 11/03/2024 11:40:00 AM, [address], [place], [address], Insurance Providers Payer Name Payer Address Payer Phone Subscriber Number Group Number Insured Name Patient Relationship to Insured Coverage Start Date Coverage End Date [employer] [address] [address] [facility] [place] [address] [phone] [id number] Regine Brannon Self - patient is the insured Medical (General) History Medical History History ICD Code asthma, diabetes, hypertension, high cho lesterol, GERD, Sciatica Surgical History Surgery Date(Month/Year) bilateral bunion
--- OUTSIDE RECORDS SUMMARY | 2024-10-26 09:07 | XMS_ITS | Clinical Summary ---
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
--- OUTSIDE RECORDS SUMMARY | 2024-10-26 09:07 | XMS_ITS ---
Author Organization [facility] Address [address] [place] [address] Care Team Providers Care Automotive Service Assistant Name Role Phone Yvon Hyman M.D. Primary Care Provider Shandra vailable Aparna Narayanan Unavailable [phone] REASON FOR VISIT DFC (Diabetic foot care) Encounters Encounter Location Date Provider Diagnosis 1 [facility] [address] [place] [address] 08/18/2024 Aparna Narayanan Plan Of Treatment Next Appt Details Provider Name:Aparna Narayanan, 11/03/2024 11:40:00 AM, [address], [place], [address], Progress Notes * Regine TURCIOS LDOB:1955 (69 yo F)Acc No.[id number]:08/18/2024 Progress Note Patient: Regine WHITE Provider: Chad Narayanan DPM :1955 A ge:69 Y S ex:Female Date:08/18/2024 Address:[address] [place] [address] Pcp:Yvon Hyman M.D. Subjective: * Chief Complaints: * 1 . DFC (Diabetic foot care). * Medical History: Objective: * Vitals: Assessment: Plan: * Treatment: * Images: * Electronic signature of Madelin Narayanan DPM on 10/26/2024 at 09:06 AM CDT Sign off status: Pending * Provider: Chad Narayanan DPM Date: 0 08/18/2024 Generated for Bea baker/Magaly/Saadia on: 0 10/26/2024 09:06 AM CDT
--- OUTSIDE RECORDS SUMMARY | 2024-10-26 09:07 | XMS_ITS | Referral Summary ---
Author Organization [facility] [address] Address [address] [place] [address] Care Team Providers Care Band Tacker Name Role Phone Sg Young Primary Care Provider [phone] Allergies No known active allergies Medications brimonidine-salma [...] on file Legal Sex Female 8:30 AM ETL ARCHITECT Gender Identity Not on file Sexual Orientation [...] Plan of Treatment Not on file Insurance [facility] H[facility]/PPO Address: [address] [address] [place] [address] Care Teams Band Tacker Relationship Specialty Start Date End Date Sg Young DO PCP - General Family Medicine 07/31/21
--- OUTSIDE RECORDS SUMMARY | 2024-10-26 09:07 | XMS_ITS ---
Author Organization [facility] Address [address] [place] [address] Care Team Providers Care Oven Dumper Name Role Phone Yvon Hyman M.D. Primary Care Provider Shandra vailaAparna Garcia Unavailable [phone] REASON FOR VISIT DFC (Diabetic foot care) Encounters Encounter Location Date Provider Diagnosis [facility] [place] [id number] [facility] [address] [place] [address] 08/04/2024 Aparna Doa Type 2 diabetes jeremiah itus with other [...] Name:Aparna Narayanan, 11/03/2024 11:40:00 AM, [address], [place], [address], Procedure Notes * Category Sub-Category Detail Notes PALLIATIVE FOOT CARE: Nail debride (54362): Debr idement of five or less mycotic [...] nail margins as needed Progress Notes * KAROLINA Regine LDOB:1955 (69 yo F)Acc No.[id number]:08/04/2024 Progress Note Patient: Regine WHITE Provider: Chad Narayanan DPM :1955 A ge:69 Y S ex:Female Date:08/04/2024 Address:[address] [place] [address] Pcp:Yvon Hyman M.D. Subjective: * Chief Complaints: * 1 . DFC (Diabetic foot care). * HPI: Kandy Chaves assisting with visit:: Chart Prep I alma. HPI/Rooming: . ..... P [facility] reason for visit:: Diabetic Foot Care: [age] y/o diabetic female RTO for diabetic foot care. Reports no acute issues with nails or calluses today. R eports last HA1c of. * Medical History: Objective: * Vitals: * Examination: G eneral Examination: Constitutional / [...] status: S tates numbness in bilateral lower extremities.. General sensation appears intact, bilateral. Muscle tone [...] Procedures: P ALLIATIVE FOOT CARE:: Nail debride (28702): D ebridement of five or less mycotic [...] * Procedure Codes: 1 1720 DEBRIDE NAIL, 1-5, G0127 TRIMMING DYSTROPHIC NAILS ANY #, Modifiers: 59 * Follow Up: 1 0-12 weeks or contact office PRN with any concerns * Images: * Electronic signature of Madelin mcpherson Oracio , TAWANNA on 10/26/2024 at 09:06 AM CDT Sign off status: Pending * Provider: Chad Narayanan, TORYM Date: 0 08/04/2024 Generated for Bea baker/Magaly/Saadia on: 0 10/26/2024 09:06 AM CDT History and Physical Notes * [...]
--- OUTSIDE RECORDS SUMMARY | 2024-10-26 09:07 | XMS_ITS | Clinical Summary ---
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
[2024-10-26 13:43] LABS: Hemoglobin A1C 7.3 % (<5.7)
== END 2024-10-26 08:46 | disposition home or self-care (01) ==
LOC: ANHGOSHLAB 08:46
PROVIDERS: PCP Family Medicine; Visit Provider Family Medicine
DX: E11.9 Type 2 diabetes mellitus without complications (principal)
CPT/HCPCS: 36415; 83036

== ENCOUNTER 2025-03-21 08:11 | Outpatient (CLI) | payer OTHER, SELFPAY ==
--- OUTSIDE RECORDS SUMMARY | 2024-08-18 05:40 | XMS_ITS ---
Author Organization 1 OF [facility] Address [address] [place] [address] Care Team Providers Care Detailer School Photographs Name Role Phone Boogie Anton, Yvon Primary Care Provider Shandra vailable Aparna Narayanan Unavailable [phone] REASON FOR VISIT DFC (Diabetic foot care) Encounters Encounter Location Date Provider Diagnosis 1 [facility] [address] [place] [address] 08/18/2024 Aparna Narayanan Plan Of Treatment Next Appt Details Provider Name:Aparna Narayanan, 03/30/2025 02:00:00 PM, [address], [address], [place], [address], Progress Notes * Regine TURCIOS LDOB:1955 (69 yo F)Acc No.[id number]:08/18/2024 Progress Note Patient: Regine Garcia Provider: Chad Narayanan DPM :1955 A ge:69 Y S ex:Female Date:08/18/2024 Address:[address] [place], [place] [id number] Pcp:Yvon Hyman M.D. Subjective: * Chief Complaints: * D FC (Diabetic foot care) * Electronic signature of Madelin Narayanan DPM on 03/21/2025 at 08:20 AM CDT Sign off status: Pending * Provider: Chad Narayanan DPM Date: 0 08/18/2024 Generated for Bea baker/Magaly/Saadia on: 0 03/21/2025 08:20 AM CDT
--- OUTSIDE RECORDS SUMMARY | 2025-01-12 06:40 | XMS_ITS ---
Author Organization [address] [facility] Address [address] [place] [address] Care Team Providers Care Product Safety Compliance Leader Name Role Phone Boogie Anton, Yvon Primary Care Provider Shandra vailable Aparna Narayanan Unavailable [phone] REASON FOR VISIT DFC (Diabetic foot care) Encounters Encounter Location Date Provider Diagnosis [facility] [address] [place] [address] 01/12/2025 Aparna Narayanan Plan Of Treatment Next Appt Details Provider Name:Aparna Narayanan, 03/30/2025 02:00:00 PM, [address], [place], [address], Progress Notes * Regine TURCIOS LDOB:1955 (69 yo F)Acc No.[id number]:01/12/2025 Progress Note Patient: Regine Garcia Provider: Chad Narayanan DPM :1955 A ge:69 Y S ex:Female Date:01/12/2025 Address:[address] [place], [place] [address] Pcp:Yvon Hyman M.D. Subjective: * Chief Complaints: * D FC (Diabetic foot care) * Electronic signature of Madelin Narayanan DPM on 03/21/2025 at 08:20 AM CDT Sign off status: Pending * Provider: Chad Narayanan DPM Date: 0 01/12/2025 Generated for Bea baker/Magaly/Saadia on: 0 03/21/2025 08:20 AM CDT
--- OUTSIDE RECORDS SUMMARY | 2025-03-21 08:20 | XMS_ITS | Clinical Summary ---
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 Gender Identity Not on file Sexual Orientation Not on file Plan of Treatment Health Maintenance Due Date Last Done Comments Hepatitis C Virus (HCV) Screening 1955 TdaP Immunization 1955 Cologuard 2001 Colonoscopy 2001 Colorectal Cancer Screening 2001 Immunochemical Fecal Occult Blood 2001 Pneumococcal Immunization (5 0+ years) (1 of 1 - PCV) 2006 Zoster Immunization (1 of 2) 2006 Influenza Immunization (#1) 02/21/202503/23, 09/09/2019 SARS-COV-2 Immunization ( - season) 2025 Respiratory Syncytial Virus (RSV) Immunization (Adult) (1 - 1-dose 75+ series) 2031 Hepatitis B Immunization Aged Out No longer eligible based on patient's age to complete this topic Human Papillomavirus (HPV) Immunization Aged Out No longer eligible b ased on patient's age to complete this topic Meningococcal Immunization (ACWY) Aged Out No longer eligible b ased on patient's age to complete this topic Rotavirus Immunization Aged Out No lo nger eligible based on patient's age to complete this topic
--- OUTSIDE RECORDS SUMMARY | 2025-03-21 08:20 | XMS_ITS | Clinical Summary ---
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
--- OUTSIDE RECORDS SUMMARY | 2025-03-21 08:20 | XMS_ITS | Patient Health Record ---
Author Organization 1 OF [facility] Address [address] [address] [place] [address] Care Team Providers Care Humanities Instructor Name Role Phone Yvon Hyman M.D. Primary Care Provider Shandra sharpeAparna Nieto Unavailable [phone] Allergies No Known Allergies Reason For Referral No Information Medications Medication SIG (Take, Route, Fr equency, Duration) Notes Start Date End Date Status Meloxicam Active Cyclobenzaprine HCl Active metFORMIN HCl Active amLODIPine Besylate Active Omeprazole Active Aspirin Active Multivitamin Active Simvastatin Active hydroCHLOROthiazide Active Social History Tobacco Use: Social History Observation Description Date Details (start date - stop date) Never Smoker NA - NA Social History Tobacco Use: Social Info Question Answer Notes Tobacco Use/Smoking Are you a nonsmoker Additional Details Category Social Info Options Details Miscellaneous: Exercise: Moderate Occupation: Works full-time Drugs/Alcohol: Alcohol use: Denies chuy t alcohol use Recreational drugs Patient denmari s recreational drug use Problems Problem Type SNOMED Code ICD Code Onset Dates Problem Status W/U Status Risk Notes Problem Porokeratosis (587824578) Porokeratosis (Q82.8) Active confirmed Problem Neurologic disorder associated with type II diabetes mellitus (545372339) Type 2 diabetes mellitus with other diabetic neurological complication (E11.49) Active confirmed Problem Type II diabetes mellitus without complication (594536438) Type 2 diabetes mellitus without complication, without long-term current use of insulin (E11.9) Active confirmed Vital Signs Height 67 in 01/19/2025 Weight 197 lbs 01/19/2025 BMI 30.85 kg/m2 01/19/2025 Encounters Encounter Location Date Provider Diagnosis 1 OF [facility] [address] [place] [address] 05/26/2024 Aparna Narayanan Type 2 diabetes jeremiah itus with other diabetic neurological complication E11.49 ; Onychogryphosis L60.2 and Nail dystrophy L60.3 [address] OF [place] [address] [place] [address] 08/25/2024 Aparna Narayanan Type 2 diabetes jeremiah itus with other diabetic neurological complication E11.49 ; Onychogryphosis L60.2 ; Nail dystrophy L60.3 and Callus of foot L84 1 OF [facility] [address] [place] [address] 11/03/2024 Aparna Narayanan Type 2 diabetes jeremiah itus with other diabetic neurological complication E11.49 ; Onychogryphosis L60.2 and Nail dystrophy L60.3 [address] OF [place] [address] [place] [address] 01/19/2025 Aparna Narayanan Type 2 diabetes jeremiah itus with other diabetic neurological complication E11.49 ; Onychogryphosis 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 11/03/2024 Onychogryphosis (ICD-10 - L60.2) 11/03/2024 Type 2 diabetes mellitus with other diabetic neurological complication (ICD-10 - E11.49) Considering the associated comorbidities and physical exam findings today, this patient is at substantial risk of developing serious foot complications in the absence of regular and professional palliative foot care.She was advised that her sciatica is likely causing some of her symptoms in the feet. 01/19/2025 Onychogryphosis (ICD-10 - L60.2) 01/19/2025 Type 2 diabetes mellitus with other diabetic neurological complication (ICD-10 - E11.49) Considering the associated comorbidities and physical exam findings today, this patient is at substantial risk of developing serious foot complications in the absence of regular and professional palliative foot care.She was advised that her sciatica is likely causing some of her symptoms in the feet. 01/19/2025 Nail dystrophy (ICD-10 - L60.3) 11/03/2024 Nail dystrophy (ICD-10 - L60.3) 08/25/2024 Onychogryphosis (ICD-10 - L60.2) 05/26/2024 Onychogryphosis (ICD-10 - L60.2) 05/26/2024 Nail dystrophy (ICD-10 - L60.3) 08/25/2024 Nail dystrophy (ICD-10 - L60.3) 01/19/2025 Anesthesia of skin (ICD-10 - R20.0) Evaluation today included a review of medical history, review of systems, discussion of exam findings, and review of diagnoses and treatment options. Discussed signs of neuropathy. I discussed that the symptoms on her right foot are likely due to her sciatica and her diabetes and the symptoms on her left foot are likely due to her diabetes. She was advised to keep her blood sugar under control to prevent worsening of the symptoms. 08/25/2024 Callus of foot (ICD-10 - L84) Plan Of Treatment Next Appt Details Provider Name:Aparna Narayanan, 03/30/2025 02:00:00 PM, [address], [place], [address], Insurance Providers Payer Name Payer Address Payer Phone Subscriber Number Group Number Insured Name Patient Relationship to Insured Coverage Start Date Coverage End Date [employer] [address] [address] [place] [address] [phone] [id number] Regine Brannon Self - patient is the insured Medical (General) History Medical History History ICD Code asthma, diabetes, hypertension, high cho lesterol, GERD, Sciatica Surgical History Surgery Date(Month/Year) bilateral bunion
[2025-03-21 13:05] LABS: Alanine Aminotransferase 19 U/L (6-35); Albumin Level 4.3 g/dL (3.5-5.1); Alkaline Phosphatase 79 U/L (38-126); Anion Gap 8 mmol/L (4-12); Aspartate Amino Transferase 62 U/L (14-36); Bilirubin,Total 0.5 mg/dL (0.2-1.3); Blood Urea Nitrogen 21 mg/dL (7-17); Calcium 9.4 mg/dL (8.4-10.2); Carbon Dioxide 29 mmol/L (22-30); Chloride 103 mmol/L (98-107); Cholesterol 147 mg/dL (0-200); Estimated Glomerular Filt Rate 59; Glucose 112 mg/dL (65-110); HDL Direct 47 mg/dL; Potassium 3.7 mmol/L (3.4-5.0); Sodium 140 mmol/L (137-145); Total Protein 7.9 g/dL (6.3-8.2); Triglycerides 88 mg/dL (<150)
[2025-03-21 13:28] LABS: MALB Creatinine Ratio 26.8 mg/g (0-30)
[2025-03-21 15:01] LABS: Hemoglobin A1C 7.6 % (<5.7)
== END 2025-03-21 08:12 | disposition home or self-care (01) ==
LOC: ANHGOSHLAB 08:12
PROVIDERS: PCP Family Medicine; Visit Provider Family Medicine
DX: E11.9 Type 2 diabetes mellitus without complications (principal); E78.5 Hyperlipidemia, unspecified
CPT/HCPCS: 36415; 80053; 80061; 82043; 83036

== ENCOUNTER 2025-05-12 01:14 | Day surgery (SDC) | payer OTHER, SELFPAY ==
--- OUTSIDE RECORDS SUMMARY | 2010-01-30 05:00 | XMS_ITS | Continuity of Care Document ---
Author Organization [facility] Address [address] [place] [address] [place] [address] Phone Care Team Providers Care Momd Teacher Name Role Phone Mirza Alva Unavailable Unavailable Procedures Procedure Date Office/outpatient Visit, Est Visual Field Examination(s) Office/outpatient Visit, Est Eye Exam, New Patient Advance Directives Directive Yes / No Effective Date File Name No Information Encounters Encounter Description Practice Location Reason(s) For Visit Diagnoses Date Provider Providers Copied on Encounter Office/[place]pat ient Visit, [facility] [address] [place] [address] [address], [place], [place], [address], tel:[phone] [facility] No Information 0-201 0 Krishnasamy Mirza. [facility] [address], [facility], [place]. tel:[phone] [facility], [address] [place] [address] [address], [place], [place], [address], tel:[phone] SEC [facility] No Information 2-201 0 Krishnasamy Mirza. [facility] [address], [facility], [place]. tel:[phone] Referring Provider: Mirza valles, [address] [place] [address], [facility]. tel:[phone] Office/outpat ient Visit, [facility], [address] [place], [place] [address]st [address], [place], [place], [address], tel:[phone] [facility] [place] No Information Mar-2 3-201 0 Krishnasamy Mirza. 2421 [facility] [address], [place], [facility], [place]. tel:[phone] [facility], [address] [place] [address], [place], [place], [address], tel:[phone] [facility] No Information Mar-0 9-201 0 Krishnasamy Mirza. [address] [address], [place], [facility], [place]. tel:[phone] Family History Family Member Type Diagnosis Age At Onset No Information Payers Payer name Insurance type Covered libertarian ID Luisa mobleyana luisa(s) [facility] Out Of State [id number] Social History Type Description Quantity Date Captured Comments Sex Female Smoking Status No Information Chief Complaint And Reason For Visit No Information Reason For Referral Reason For Referral No Information History Of Present Illness Encounter Date Complaint History Of Prese nt Illness No Information Functional Status Date Functional Assessmen t No Information Instructions Date Instruction Additional Infor mation No Information Assessments Type Assessment Date No Information Patient Care Teams Name Effective Dates (start - stop) Status Members No Information
--- OUTSIDE RECORDS SUMMARY | 2010-01-30 05:00 | XMS_ITS | Continuity of Care Document ---
Author Organization [facility] Address [address] [place] [address] [place] [address] Phone Care Team Providers Care Sterile Technician Name Role Phone Mirza Alva Unavailable Unavailable Procedures Procedure Date Office/outpatient Visit, Est Visual Field Examination(s) Office/outpatient Visit, Est Eye Exam, New Patient Advance Directives Directive Yes / No Effective Date File Name No Information Encounters Encounter Description Practice Location Reason(s) For Visit Diagnoses Date Provider Providers Copied on Encounter Office/outpat ient Visit, [facility], [address] [place] [address] [address], [place], [place], [address], tel:[phone] [facility] No Information 0-201 0 Krishnasamy Mirza. [facility] [address], [facility], [place]. tel:[phone] [facility], [address] [place] [address] [address], [place], [place], [address], tel:[phone] [facility] No Information 2-201 0 Krishnasamy Mirza. [facility] [address], [facility], [place]. tel:[phone] Referring Provider: Mirza valles, [address] [place] [address], [facility]. tel:[phone] Office/outpat ient Visit, [facility], [address] [place], [place] [address]st [address], [place], [place], [address], tel:[phone] [facility] [place] No Information Mar-2 3-201 0 Krishnasamy Mirza. 2421 [facility] [address], [place], [facility], [place]. tel:[phone] [facility] Eye [facility], [address] [place] [address], [place], [place], [address], tel:[phone] [facility] No Information Mar-0 9-201 0 Krishnasamy Mirza. [address] [address], [place], [facility], [place]. tel:[phone] Family History Family Member Type Diagnosis Age At Onset No Information Payers Payer name Insurance type Covered green party ID Luisa mobleyana luisa(s) [facility] Out Of State [id number] Social History Type Description Quantity Date Captured [...]
--- OUTSIDE RECORDS SUMMARY | 2010-01-30 05:00 | XMS_ITS | Continuity of Care Document ---
Author Organization [facility] Address [address] [place] [address] [place] [address] Phone Care Team Providers Care Environmental Consultant Name Role Phone Mirza Alva Unavailable Unavailable Procedures Procedure Date Office/outpatient Visit, Est Visual Field Examination(s) Office/outpatient Visit, Est Eye Exam, New Patient Advance Directives Directive Yes / No Effective Date File Name No Information Encounters Encounter Description Practice Location Reason(s) For Visit Diagnoses Date Provider Providers Copied on Encounter Office/outpat ient Visit, [facility], [address] [place] [address] [address], [place], [place], [address], tel:[phone] SEC [facility] No Information 0-201 0 Krishnasamy Mirza. [facility] [address], [facility], [place]. tel:[phone] [facility], [address] [place] [address] [address], [place], [place], [address], tel:[phone] SEC [facility] No Information 2-201 0 Krishnasamy Mirza. [facility] [address], [facility], [place]. tel:[phone] Referring Provider: Mirza valles, [address] [place] [address], [facility]. tel:[phone] Office/outpat ient Visit, [facility], [address] [place], [place] [address] [address], [place], [place], [address], tel:[phone] [facility] [place] No Information Mar-2 3-201 0 Krishnasamy Mirza. 2421 [facility] [address], [place], [facility], [place]. tel:[phone] [facility] Eye [facility], [address] [place] [address], [place], [place], [address], tel:[phone] [facility] No Information Mar-0 9-201 0 Krishnasamy Mirza. [address] [address], [place], [facility], [place]. tel:[phone] Family History Family Member Type Diagnosis Age At Onset No Information Payers Payer name Insurance type Covered republican ID Luisa mobleyana luisa(s) [facility] Out Of State [id number] Social History Type Description Quantity Date Captured [...]
--- OUTSIDE RECORDS SUMMARY | 2010-01-30 05:00 | XMS_ITS | Continuity of Care Document ---
Author Organization [facility] Address [address] [place] [address] [place] [address] Phone Care Team Providers Care Enterprise Integration Architect Name Role Phone Mirza Alva Unavailable Unavailable Procedures Procedure Date Office/outpatient Visit, Est Visual Field Examination(s) Office/outpatient Visit, Est Eye Exam, New Patient Advance Directives Directive Yes / No Effective Date File Name No Information Encounters Encounter Description Practice Location Reason(s) For Visit Diagnoses Date Provider Providers Copied on Encounter Office/outpat ient Visit, [facility], [address] [place] [address] [address], [place], [place], [address], tel:[phone] [facility] No Information 0-201 0 Krishnasamy Mirza. [facility] [address], [facility], [place]. tel:[phone] [facility], [address] [place] [address] [address], [place], [place], [address], tel:[phone] [facility] No Information 2-201 0 Krishnasamy Mirza. [facility] [address], [facility], [place]. tel:[phone] Referring Provider: Mirza valles, [address] [place] [address], [facility]. tel:[phone] Office/outpat ient Visit, [facility], [address] [place], [place] [address] [address], [place], [place], [address], tel:[phone] [facility] [place] No Information Mar-2 3-201 0 Krishnasamy Mirza. 2421 [facility] [address], [place], [facility], [place]. tel:[phone] [facility], [address] [place] [address], [place], [place], [address], tel:[phone] [facility] No Information Mar-0 9-201 0 Krishnasamy Mirza. [address] [address], [place], [place], [facility], [place]. tel:[phone] Family History Family Member Type Diagnosis Age At Onset No Information Payers Payer name Insurance type Covered libertarian ID Luisa mobleyana luisa(s) [facility] Out Of State [id number] Social History Type Description Quantity Date Captured [...]
--- OUTSIDE RECORDS SUMMARY | 2010-01-30 05:00 | XMS_ITS | Continuity of Care Document ---
Author Organization [facility] Address [address] [place] [address] [place] [address] Phone Care Team Providers Care Degreaser Operator Name Role Phone Mirza Alva Unavailable Unavailable Procedures Procedure Date Office/outpatient Visit, Est Visual Field Examination(s) Office/outpatient Visit, Est Eye Exam, New Patient Advance Directives Directive Yes / No Effective Date File Name No Information Encounters Encounter Description Practice Location Reason(s) For Visit Diagnoses Date Provider Providers Copied on Encounter Office/[place]pat ient Visit, [facility], [address] [place] [address] [address], [place], [place], [address], tel:[phone] [facility] No Information 0-201 0 Krishnasamy Mirza. [facility] [address], [facility], [place]. tel:[phone] [facility], [address] [place] [address] [address], [place], [place], [address], tel:[phone] [facility] No Information 2-201 0 Krishnasamy Mizra. [facility] [address], [facility], [place]. tel:[phone] Referring Provider: Mirza valles, [address] [place] [address], [facility]. tel:[phone] Office/outpat ient Visit, [facility], [address] [place], [place] [address]st [address], [place], [place], [address], tel:[phone] [facility] [place] No Information Mar-2 3-201 0 Krishnasamy Mirza. 2421 [facility] [address], [place], [facility], [place]. tel:[phone] [facility], [address] [place] [address], [place], [place], [address], tel:[phone] [facility] No Information Mar-0 9-201 0 Krishnasamy Mirza. [address] [address], [place], [facility], [place]. tel:[phone] Family History Family Member Type Diagnosis Age At Onset No Information Payers Payer name Insurance type Covered constitution party ID Luisa mobleyana luisa(s) [facility] Out Of State [id number] Social History Type Description Quantity Date Captured [...]
--- OUTSIDE RECORDS SUMMARY | 2010-01-30 05:00 | XMS_ITS | Continuity of Care Document ---
Author Organization [facility] Address [address] [place] [address] [place] [address] Phone Care Team Providers Care Telecommunications Consultant Name Role Phone Mirza Alva Unavailable Unavailable Procedures Procedure Date Office/outpatient Visit, Est Visual Field Examination(s) Office/outpatient Visit, Est Eye Exam, New Patient Advance Directives Directive Yes / No Effective Date File Name No Information Encounters Encounter Description Practice Location Reason(s) For Visit Diagnoses Date Provider Providers Copied on Encounter Office/[place]pat ient Visit, [facility], [address] [place] [address] [address], [place], [place], [address], tel:[phone] [facility] No Information 0-201 0 Krishnasamy Mirza. [facility] [address], [facility], [place]. tel:[phone] [facility], [address] [place] [address] [address], [place], [place], [address], tel:[phone] [facility] No Information 2-201 0 Krishnasamy Mirza. [facility] [address], [facility], [place]. tel:[phone] Referring Provider: Mirza valles, [address] [place] [address], [facility]. tel:[phone] Office/outpat ient Visit, [facility], [address] [place], [place] [address] [address], [place], [place], [address], tel:[phone] [facility] [place] No Information Mar-2 3-201 0 Krishnasamy Mirza. 2421 [facility] [address], [place], [facility], [place]. tel:[phone] [facility], [address] [place] [address], [place], [place], [address], tel:[phone] [facility] No Information Mar-0 9-201 0 Krishnasamy Mirza. [address] [address], [place], [place], [facility], [place]. tel:[phone] Family History Family Member Type Diagnosis Age At Onset No Information Payers Payer name Insurance type Covered alliance party ID Luisa mobleyana luisa(s) [facility] Out Of State [id number] Social History Type Description Quantity Date Captured [...]
--- OUTSIDE RECORDS SUMMARY | 2010-01-30 05:00 | XMS_ITS | Continuity of Care Document ---
Author Organization [facility] Address [address] [place] [address] [place] [address] Phone Care Team Providers Care Neonatal Surgeon Name Role Phone Mirza Alva Unavailable Unavailable Procedures Procedure Date Office/outpatient Visit, Est Visual Field Examination(s) Office/outpatient Visit, Est Eye Exam, New Patient Advance Directives Directive Yes / No Effective Date File Name No Information Encounters Encounter Description Practice Location Reason(s) For Visit Diagnoses Date Provider Providers Copied on Encounter Office/outpat ient Visit, [facility], [address] [place] [address] [address], [place], [place], [address], tel:[phone] SEC [facility] No Information 0-201 0 Krishnasamy Mirza. [facility] [address], [facility], [place]. tel:[phone] [facility], [address] [place] [address] [address], [place], [place], [address], tel:[phone] SEC [facility] No Information 2-201 0 Krishnasamy Mirza. [facility] [address], [facility], [place]. tel:[phone] Referring Provider: Mirza valles, [address] [place] [address], [facility]. tel:[phone] Office/outpat ient Visit, [facility], [address] [place], [place] [address] [address], [place], [place], [address], tel:[phone] [facility] [place] No Information Mar-2 3-201 0 Krishnasamy Mirza. 2421 [facility] [address], [place], [facility], [place]. tel:[phone] [facility], [address] [place] [address], [place], [place], [address], tel:[phone] [facility] No Information Mar-0 9-201 0 Krishnasamy Mirza. [address] [address], [place], [place], [facility], [place]. tel:[phone] Family History Family Member Type Diagnosis Age At Onset No Information Payers Payer name Insurance type Covered green party ID Luisa mobleyana luisa(s) [facility] Out Of State [id number] Social History Type Description Quantity Date Captured [...]
--- OUTSIDE RECORDS SUMMARY | 2010-01-30 05:00 | XMS_ITS | Continuity of Care Document ---
Author Organization [facility] Address [address] [place] [address] [place] [address] Phone Care Team Providers Care Cleaning Maid Name Role Phone Mirza Alva Unavailable Unavailable Procedures Procedure Date Office/outpatient Visit, Est Visual Field Examination(s) Office/outpatient Visit, Est Eye Exam, New Patient Advance Directives Directive Yes / No Effective Date File Name No Information Encounters Encounter Description Practice Location Reason(s) For Visit Diagnoses Date Provider Providers Copied on Encounter Office/outpat ient Visit, [facility], [address] [place] [address] [address], [place], [place], [address], tel:[phone] SEC [facility] No Information 0-201 0 Krishnasamy Mirza. [facility] [address], [facility], [place]. tel:[phone] [facility], [address] [place] [address] [address], [place], [place], [address], tel:[phone] SEC [facility] No Information 2-201 0 Krishnasamy Mirza. [facility] [address], [facility], [place]. tel:[phone] Referring Provider: Mirza valles, [address] [place] [address], [facility]. tel:[phone] Office/outpat ient Visit, [facility], [address] [place], [place] [address] [address], [place], [place], [address], tel:[phone] [facility] [place] No Information Mar-2 3-201 0 Krishnasamy Mirza. 2421 [facility] 102[place], [place], [facility], [place]. tel:[phone] [facility], [address] [place] [address], [place], [place], [address], tel:[phone] [facility] No Information Mar-0 9-201 0 Krishnasamy Mirza. [address] [address], [place], [facility], [place]. tel:[phone] Family History Family Member Type Diagnosis Age At Onset No Information Payers Payer name Insurance type Covered green party ID Luisa mobleyana luisa(s) [facility] Out Of State [id number] Social History Type Description Quantity Date Captured [...]
--- OUTSIDE RECORDS SUMMARY | 2010-01-30 05:00 | XMS_ITS | Continuity of Care Document ---
Author Organization [facility] Address [address] [place] [address] [place] [address] Phone Care Team Providers Care Pipe Cleaning Machine Operator Name Role Phone Mirza Alva Unavailable Unavailable Procedures Procedure Date Office/outpatient Visit, Est Visual Field Examination(s) Office/outpatient Visit, Est Eye Exam, New Patient Advance Directives Directive Yes / No Effective Date File Name No Information Encounters Encounter Description Practice Location Reason(s) For Visit Diagnoses Date Provider Providers Copied on Encounter Office/outpat ient Visit, [facility] [place] [place], [address] [place] [address] [address], [place], [place], [address], tel:[phone] SEC [facility] No Information 0-201 0 Krishnasamy Mirza. [facility] [address], [facility], [place]. tel:[phone] [facility], [address] [place] [address] [address], [place], [place], [address], tel:[phone] SEC [facility] No Information 2-201 0 Krishnasamy Mirza. [facility] [address], [facility], [place]. tel:[phone] Referring Provider: Mirza valles, [address] [place] [address], [facility]. tel:[phone] Office/outpat ient Visit, [facility] [place], [address] [place], [place] [address] [address], [place], [place], [address], tel:[phone] [facility] [place] No Information Mar-2 3-201 0 Krishnasamy Mirza. 2421 [facility] [address], [place], [facility], [place]. tel:[phone] [facility] Eye [facility], [address] [place] [address], [place], [place], [address], tel:[phone] [facility] No Information Mar-0 9-201 0 Krishnasamy Mirza. [address] [address], [place], [place], [facility], [place]. tel:[phone] Family History Family Member Type Diagnosis Age At Onset No Information Payers Payer name Insurance type Covered alliance party ID Luisa mobleyana luisa(s) [facility] Out Of State [id number] Social History Type Description Quantity Date Captured [...]
--- OUTSIDE RECORDS SUMMARY | 2010-01-30 05:00 | XMS_ITS | Continuity of Care Document ---
Author Organization [facility] Address [address] [place] [address] [place] [address] Phone Care Team Providers Care Pastry Assistant Name Role Phone Mirza Alva Unavailable Unavailable Procedures Procedure Date Office/outpatient Visit, Est Visual Field Examination(s) Office/outpatient Visit, Est Eye Exam, New Patient Advance Directives Directive Yes / No Effective Date File Name No Information Encounters Encounter Description Practice Location Reason(s) For Visit Diagnoses Date Provider Providers Copied on Encounter Office/outpat ient Visit, [facility], [address] [place] [address] [address], [place], [place], [id number], tel:[phone] [facility] No Information 0-201 0 Krishnasamy Mirza. [facility] [address], [facility], [place]. tel:[phone] [facility], [address] [place] [address] [address], [place], [place], [id number], tel:[phone] [facility] No Information 2-201 0 Krishnasamy Mirza. [facility] [address], [facility], [place]. tel:[phone] Referring Provider: Mirza valles, [address] [place] [address], [facility]. tel:[phone] Office/outpat ient Visit, [facility], [address] [place], [place] [address]st [address], [place], [place], [id number], tel:[phone] [facility] [place] No Information Mar-2 3-201 0 Krishnasamy Mirza. [address] [facility] [address], [place], [facility], [place]. tel:[phone] [facility], [address], [place], [place], [id number], tel:[phone] [facility] No Information Mar-0 9-201 0 Krishnasamy Mirza. [address] [address], [place], [place], [facility], [place]. tel:[phone] Family History Family Member Type Diagnosis Age At Onset No Information Payers Payer name Insurance type Covered libertarian ID Luisa mobleyana luisa(s) [facility] Out Of State [id number] Social History Type Description Quantity Date Captured [...]
--- OUTSIDE RECORDS SUMMARY | 2010-01-30 05:00 | XMS_ITS | Continuity of Care Document ---
Author Organization [facility] Address [address] [place] [address] [place] [address] Phone Care Team Providers Care Drug Abuse Resistance Education Officer Name Role Phone Mirza Alva Unavailable Unavailable Procedures Procedure Date Office/outpatient Visit, Est Visual Field Examination(s) Office/outpatient Visit, Est Eye Exam, New Patient Advance Directives Directive Yes / No Effective Date File Name No Information Encounters Encounter Description Practice Location Reason(s) For Visit Diagnoses Date Provider Providers Copied on Encounter Office/outpat ient Visit, [facility], [address] [place] [address] [address], [place], [place], [id number], tel:[phone] [facility] No Information 0-201 0 Krishnasamy Mirza. [facility], [facility], [place]. tel:[phone] [facility], [address] [place] [address] [address], [place], [place], [id number], tel:[phone] [facility] No Information 2-201 0 Krishnasamy Mirza. [facility] [address], [facility], [place]. tel:[phone] Referring Provider: Mirza valles, [address] [place] [address], [facility]. tel:[phone] Office/outpat ient Visit, [facility], [address] [place], [place] [address]st [address], [place], [place], [id number], tel:[phone] [facility] [place] No Information Mar-2 3-201 0 Krishnasamy Mirza. [address] [facility] [address], [place], [facility], [place]. tel:[phone] [facility], [address], [place], [place], [id number], tel:[phone] [facility] No Information Mar-0 9-201 0 Krishnasamy Mirza. [address] [address], [place], [place], [facility], [place]. tel:[phone] Family History Family Member Type Diagnosis Age At Onset No Information Payers Payer name Insurance type Covered republican ID Luisa mobleyana luisa(s) [facility] Out Of State [id number] Social History Type Description Quantity Date Captured [...]
--- OUTSIDE RECORDS SUMMARY | 2024-05-25 02:15 | XMS_ITS | Continuity of Care Document ---
Author Organization [facility] [place] Address [address] [place] [address] [address] [place] [address] Phone Care Team Providers Care Mutton Puncher Name Role Phone Lomeli PT,MPT,ATC, Bryce Unavailable Unavai lable Procedures Procedure Date Therapeutic Activities Therapeutic Activities Doc neg elder mal no plan PRES/ABSN URINE INCON ASSESS PT Evaluation Moderate Complexity Therapeutic Activities Therapeutic Activities Therapeutic Activities Doc neg elder mal no plan PRES/ABSN URINE INCON ASSESS PT Evaluation Moderate Complexity Therapeutic Activities Therapeutic Activities Doc neg elder mal no plan PRES/ABSN URINE INCON ASSESS PT Evaluation Moderate Complexity Therapeutic Activities Therapeutic Activities Neuromuscular Re-Ed Therapeutic Activities Neuromuscular Re-Ed Doc neg elder mal no plan PRES/ABSN URINE INCON ASSESS PT Evaluation Moderate Complexity Therapeutic Activities Neuromuscular Re-Ed Therapeutic Exercise Neuromuscular Re-Ed Therapeutic Exercise Neuromuscular Re-Ed Therapeutic Exercise Manual Therapy Neuromuscular Re-Ed Therapeutic Exercise Manual Therapy Neuromuscular Re-Ed Therapeutic Exercise Manual Therapy Neuromuscular Re-Ed Therapeutic Exercise Manual Therapy Neuromuscular Re-Ed Therapeutic Exercise Manual Therapy Neuromuscular Re-Ed Therapeutic Exercise Manual Therapy Therapeutic Activities Neuromuscular Re-Ed Therapeutic Exercise Manual Therapy Therapeutic Activities Neuromuscular Re-Ed Therapeutic Exercise Therapeutic Activities Neuromuscular Re-Ed Therapeutic Exercise Therapeutic Activities Neuromuscular Re-Ed Therapeutic Exercise Progress Note Therapeutic Activities Neuromuscular Re-Ed Therapeutic Exercise Therapeutic Activities Neuromuscular Re-Ed Therapeutic Exercise Therapeutic Activities Neuromuscular Re-Ed Therapeutic Exercise Therapeutic Activities Neuromuscular Re-Ed Therapeutic Exercise Therapeutic Activities Neuromuscular Re-Ed Therapeutic Exercise Therapeutic Activities Neuromuscular Re-Ed Therapeutic Exercise Therapeutic Activities Neuromuscular Re-Ed Therapeutic Exercise Therapeutic Activities Neuromuscular Re-Ed Therapeutic Exercise Therapeutic Activities Neuromuscular Re-Ed Therapeutic Exercise Therapeutic Activities Neuromuscular Re-Ed Therapeutic Exercise Therapeutic Activities Neuromuscular Re-Ed Therapeutic Exercise Therapeutic Activities Neuromuscular Re-Ed Therapeutic Exercise Therapeutic Activities Neuromuscular Re-Ed Therapeutic Exercise Therapeutic Activities Neuromuscular Re-Ed Therapeutic Exercise Therapeutic Activities Neuromuscular Re-Ed Therapeutic Exercise Therapeutic Activities Neuromuscular Re-Ed Therapeutic Exercise PT Evaluation Moderate Complexity Therapeutic Activities Therapeutic Exercise Therapeutic Activities Neuromuscular Re-Ed Therapeutic Exercise Therapeutic Activities Neuromuscular Re-Ed Therapeutic Exercise Therapeutic Activities Neuromuscular Re-Ed Therapeutic Exercise Therapeutic Activities Therapeutic Exercise Therapeutic Activities Therapeutic Exercise Therapeutic Activities Therapeutic Exercise Therapeutic Activities Therapeutic Exercise Therapeutic Activities Therapeutic Exercise Therapeutic Activities Therapeutic Exercise Hot or Cold Pack Therapeutic Activities Therapeutic Exercise Hot or Cold Pack PT Evaluation Moderate Complexity Therapeutic Activities Therapeutic Exercise Progress Note Therapeutic Exercise Therapeutic Activities Therapeutic Exercise Neuromuscular Re-Ed Therapeutic Exercise Manual Therapy Therapeutic Exercise Manual Therapy Therapeutic Exercise Hot or Cold Pack Therapeutic Exercise Therapeutic Exercise Manual Therapy PT Evaluation Moderate Complexity Therapeutic Exercise Neuromuscular Re-Ed PT RE-EVALUATION THERAPEUTIC EXERCISES NEUROMUSCULAR RE-ED FUNC ACTIVITY 15 MIN HOT/COLD PACK ELECTRIC STIMULATION UNATT THERAPEUTIC EXERCISES NEUROMUSCULAR RE-ED MANUAL THERAPY FUNC ACTIVITY 15 MIN HOT/COLD PACK ELECTRIC STIMULATION UNATT Advance Directives Directive Yes / No Effective Date File Name No Information Encounters Encounter Description Practice Location Reason(s) For Visit Diagnoses Date Provider Providers Copied on Encounter [facility] [facility], [place], [place], [id number], tel:[phone] Sheldon No Information 4 Armani Villalobos [place], [place]. Referring Provider: Tiffanie Yousif [address], [place], [address]. tel:[phone] [facility], [place], [place], [address], tel:[phone] [place]ldon No Information 4 Armani Villalobos [place], [place]. Referring Provider: Tiffanie Yousif [address], [place], [address]. tel:[phone] [facility], [place], [place], [address], tel:[phone] [place]on No Information 4 Armani Villalobos [place], [place]. Referring Provider: Tiffanie Yousif [address], [place], [address]. tel:[phone] [facility], [address], [place], [place], [address], [place] tel:[phone] Sheldon No Information 4 Juni Briseno. . Referring Provider: Yvon Hyman, [address] [place], [address]. tel:[phone] [facility] [address], [place], [place], [address], [place] tel:[phone] Sheldon No Information 4 Lomeli Bryce. , [place], [place]. Referring Provider: Yvon Hyman, [address] [place], [address]. tel:[phone] [facility], [place], [place], [address], [place] tel:[phone] She[place]on No Information 4 Armani Wu. , [place], [place]. Referring Provider: Yvon Hyman, [address] [place], [address]. tel:[phone] [facility], [place], [place], [address], [place] tel:[phone] [place]on No Information 4 Lomeli Bryce. , [place], [place]. Referring Provider: Yvon Hyman, [address] [place], [address]. tel:[phone] [facility], [place], [place], [address], [place] tel:[phone] [place]on No Information 4 Armani Wu. , [place]. Referring Provider: Yvon Hyman, [address] [place], [address]. tel:[phone] [facility], [place], [place], [address], [place] tel:[phone] Sheldon No Information 4 Ohdallas Briseno. . Referring Provider: Yvon Hyman, [address] [place], [address]. tel:[phone] [facility] [facility], [place], [place], [address], [place] tel:[phone] She[place]on No Information 4 Armani Villalobos , [place], [place]. Referring Provider: Yvon Hyman, [address] [place], [address]. tel:[phone] [facility] [address], [place], [place], [address], [place] tel:[phone] Sheldon Unspecified urinary incontinence 4 Modglin Tera. . Referring Provider: Yvon Hyman, [address] [place], [address]. tel:[phone] [facility] [facility] [address], [place], [place], [address], [place] tel:[phone] Sheldon No Information 2 Armani Villalobos , [place], [place]. Referring Provider: Sg Young, [address] [place] [address], [address]. tel:[phone] [facility] [address], [id number], [place] tel:[phone] Sheldon No Information 2 Armani Villalobos , [place], [place]. Referring Provider: Sg Young, [address] [place], [address]. tel:[phone] [facility] [facility], [place], [place], [address], [place] tel:[phone] She[place]on No Information 2 Armani Villalobos [place]. Referring Provider: Sg Young, [address] [place], [address]. tel:[phone] [facility] [facility], [place], [place], [id number], [place] tel:[phone] Sheldon No Information 2 Lomeli Bryce. , [place], [place]. Referring Provider: Sg Young, [address] [place] [address], [address]. tel:[phone] [place] [id number] [facility] [address], [place], [place], [address], [place] tel:[phone] Sheldon No Information 2 Lomeli Bryce. , [place], [place]. Referring Provider: Sg Young, [address] [place] [address], [address]. tel:[phone] [place] [id number] [place] [address], [place], [place], [address], [place] tel:[phone] Sheldon No Information 0 2 Lomeli Bryce. , [place], [place]. Referring Provider: Sg Young [address] [place] [address], [address]. tel:[phone] [place] [id number] [place] [address], [place], [place], [address], [place] tel:[phone] Sheldon No Information Sep-2 2 Lomeli Bryce. , [place], [place]. Referring Provider: Sg Young, [address] [place] [address], [address]. tel:[phone] [place] [id number] [place] [address], [place], [place], [address], [place] tel:[phone] Sheldon No Information Sep-2 2 Lomeli Bryce. , [place]. Referring Provider: Sg Young [address] [place] [address], [address]. tel:[phone] [place], [place] [id number] [facility] [address], [place], [place], [address], [place] tel:[phone] Sheldon No Information Apr-2 0-202 2 Lomeli Bryce. , [place], [place]. Referring Provider: Sg Young [address] [place] [address], [address]. tel:[phone] [facility], [address], [place], [place], [address], [place] tel:[phone] Sheldon No Information Apr-0 6-202 2 Lomeli Bryce. , [place], [place]. Referring Provider: Sg Young, [address] [place] [address], [place], [address]. tel:[phone] [place] [address] [address], [place], [place], [address], [place] tel:[phone] Sheldon No Information Apr-0 4-202 2 Lomeli Bryce. , [place]. Referring Provider: Sg Young, [address] [place] [address], [address]. tel:[phone] [place] [address] [place], [place] [address] [facility], [place], [place], [address], [place] tel:[phone] Sheldon No Information Mar-3 0-202 2 Lomeli Bryce. , [place], [place]. Referring Provider: Sg Young, [address] [place] [address], [place], [address]. tel:[phone] [place] [address] [address] [place] [address], [place], [place], [address], [place] tel:[phone] Sheldon No Information Mar-2 3-202 2 Lomeli Bryce. , [place], [place]. Referring Provider: Sg Young, [address] [place] [address], [place], [address]. tel:[phone] [place] [address] [address] [facility] [address], [place], [place], [address], [place] tel:[phone] Sheldon No Information Mar-2 1-202 2 Lomeli Bryce. , [place], [place]. Referring Provider: Sg Young, [address] [place] [address], [place], [address]. tel:[phone] [place] [id number] [facility] [address], [place], [address], [place] tel:[phone] Sheldon No Information Mar-1 6-202 2 Lomeli Bryce. , [place], [place]. Referring Provider: Sg Young, [address] [place] [address], [place], [address]. tel:[phone] [facility], [address], [place], [address], [place] tel:[phone] Sheldon No Information Aug-0 2 Armani Woodsn. , [place], [place]. Referring Provider: Sg Young, [address] [place] [address], [address]. tel:[phone] [facility], [address], [place], [place], [address], [place] tel:[phone] Sheldon No Information Aug-0 2 Armani Woodsn. , [place], [place]. Referring Provider: Sg Young, [address] [place] [address], [address]. tel:[phone] [facility] [address] [facility] [address], [place], [address], [place] tel:[phone] Sheldon No Information b-2 2 Armani Woodsn. , [place]. Referring Provider: Sg Young, [address] [place] [address], [address]. tel:[phone] [facility], [address] [facility] [address], [place], [address], [place] tel:[phone] [place] No Information b-2 2 Armani Wu. , [place]. Referring Provider: Sg Young, [address] [place] [address], [place], [address]. tel:[phone] [facility], [address], [place], [place], [address], [place] tel:[phone] Sheldon No Information Jul-2 2 Armani Woodsn. , [place]. Referring Provider: Sg Young, [address] [place] [address], [address]. tel:[phone] [facility], [place], [address], [place] tel:[phone] [place] No Information 2 Lomeli Bryce. , [place]. Referring Provider: Sg Young, [address] [place] [address], [address]. tel:[phone] [place] [id number], [place], [place], [address], [place] tel:[phone] Sheldon No Information 2 Lomeli Bryce. , [place]. Referring Provider: Sg Young, [address] [place] [address], [address]. tel:[phone] [facility] [address] [facility] [address], [place], [place], [address], [place] tel:[phone] Sheldon No Information 2 Lomeli Bryce. , [place]. Referring Provider: Sg Young, [address] [place] [address], [address]. tel:[phone] [place] [id number] [facility], [place], [place], [address], [place] tel:[phone] [place]on No Information 2 Lomeli Bryce. , [place]. Referring Provider: Sg Young, [address] [place] [address], [address]. tel:[phone] [facility] [address] [place] [address], [place], [place], [address], [place] tel:[phone] She[place]on No Information 2 Lomeli Bryce. , [place]. Referring Provider: Sg Young, [address] [place] [address], [address]. tel:[phone] [facility] [facility], [place], [place], [address], [place] tel:[phone] [place] No Information 2 Lomeli Bryce. , [place]. Referring Provider: Sg Young [address] [place] [address], [address]. tel:[phone] [place] [address] [address], [place], [place], [address], [place] tel:[phone] Sheldon No Information 2 Armani Wu. [place]. Referring Provider: Sg Young, [address] [facility], [place], [address]. tel:[phone] [facility], [place], [place], [address], [place] tel:[phone] She[place]on No Information 2 Armani Villalobos [place]. Referring Provider: Sg Young, [address] [facility], [place], [address]. tel:[phone] [facility], [place], [place], [address], [place] tel:[phone] Sheldon No Information 1 Makler Luke. . [facility], [place], [place], [address], [place] tel:[phone] Sheldon No Information 1 Makler Luke. . [facility], [place], [place], [address], [place] tel:[phone] Sheldon No Information 1 Makler Luke. . [facility], [place], [address], [place] tel:[phone] Sheldon No Information 1 Makler Luke. . [facility], [place], [place], [address], [place] tel:[phone] Sheldon No Information 1 Makler Luke. . [facility], [place], [place], [address], [place] tel:[phone] Sheldon No Information 1 Makler Luke. . [facility], [place], [place], [address], [place] tel:[phone] Sheldon No Information Sep-0 - 1 Armani Villalobos [place], [place]. [facility], [place], [place], [address], tel:[phone] Sheldon No Information Sep-0 1 [place] T[place]ie. . [facility], [place], [place], [address], [place] tel:[phone] Sheldon No Information Aug-3 1 [place] T[place]. . [facility], [place], [place], [address], [place] tel:[phone] Sheldon No Information Aug-2 1 [place]. . [facility], [place], [place], [address], [place] tel:[phone] Sheldon No Information Aug-2 1 Armani Villalobos [place], [place]. [facility], [place], [place], [address], [place] tel:[phone] Sheldon Unspecified disorder of synovium and tendon, right shoulderPain in right shoulder Dec-2 0- 8 Makler Luke. . [facility], [place], [place], [address], [place] tel:[phone] Nora Unspecified disorder of synovium and tendon, right shoulderPain in right shoulder Dec- 8-201 8 Makler Luke. . [facility], [place], [place], [address], [place] tel:[phone] Nora Unspecified disorder of synovium and tendon, right shoulderPain in right shoulder Dec- 1-201 8 Makler Luke. . [facility], [place], [place], [address], [place] tel:[phone] Sheldon Unspecified disorder of synovium and tendon, right shoulderPain in right shoulder 8 Makler Luke. . [facility], [place], [place], [address], [place] tel:[phone] She[place]on Unspecified disorder of synovium and tendon, right shoulderPain in right shoulder 8 Bee Santos. . [facility], [place], [place], [address], [place] tel:[phone] Sheldon Unspecified disorder of synovium and tendon, right shoulderPain in right shoulder 8 Makler Luke. . [facility], [place], [place], [address], tel:[phone] Sheldon Unspecified disorder of synovium and tendon, right shoulderPain in right shoulder 8 Makler Luke. . [facility], [place], [place], [address], [place] tel:[phone] Sheldon Unspecified disorder of synovium and tendon, right shoulderPain in right shoulder 8 Makler Luke. . [facility], [place], [place], [address], [place] tel:[phone] Nora No Information 2 Taran Vincent. [address] [facility], [address], [place], [place], [facility], [place]. tel:[phone] [facility], [place], [place], [address], [place] tel:[phone] Sheldon LumbagoPain in joint involving pelvic region and thigh 2 Taran Vincent. [address] [facility], [address], [place], [place], [facility], [place]. tel:[phone] Family History Family Member Type Diagnosis Age At Onset No Information Payers Payer name Insurance type Covered libertarian ID Authormalena head(s) [employer] [place] [id number] Social History Type Description Quantity Date Captured Comments Sex Female Smoking Status No Information Chief Complaint And Reason For Visit No Information Reason For Referral Reason For Referral No Information History Of Present Illness Encounter Date Complaint History Of Prese nt Illness No Information Functional Status Date Functional Assessmen t No Information Instructions Date Instruction Additional Infor giselle Kegel exercises were explained to the patient. Related to Unspecified urinary incontinence Giving encouragement to exercise Related to Overweight Giving encouragement to exercise Related to Overweight Giving encouragement to exercise Related to Overweight Giving encouragement to exercise Related to Overweight Assessments Type Assessment Date No Information Patient Care Teams Name Effective Dates (start - stop) Status Members No Information
--- OUTSIDE RECORDS SUMMARY | 2024-05-25 02:15 | XMS_ITS | Continuity of Care Document ---
Author Organization [employer] [place] Address [address] [place] [address] [address] [place] [address] Phone Care Team Providers Care Ballistician Name Role Phone Lomeli PT,MPT,ATC, Bryce Unavailable [...] Diagnoses Date Provider Providers Copied on Encounter [facility] [facility], [place], [place], [id number], tel:[phone] Rosalie No Information 4 Armani Villalobos [place], [place]. Referring Provider: Tiffanie Yousif [address], [place], [address]. tel:[phone] [facility], [place], [place], [address], tel:[phone] Rosalie No Information 4 Armani Villalobos [place], [place]. Referring Provider: Tiffanie Yousif [address], [place], [address]. tel:[phone] [facility], [place], [place], [address], tel:[phone] Rosalie No Information 4 Armani [place]. Referring Provider: Tiffanie Yousif [address], [place], [address]. tel:[phone] [facility], [address], [place], [place], [address], [place] tel:[phone] Rosalie No Information 4 Juni Briseno. . Referring Provider: Yvon Hyman, [address] [place], [address]. tel:[phone] [facility] [address], [place], [place], [address], [place] tel:[phone] Rosalie No Information 4 Lomeli Bryce. , [place], [place]. Referring Provider: Yvon Hyman, [address] [place], [address]. tel:[phone] [facility], [place], [place], [address], [place] tel:[phone] Rosalie No Information 4 Armani Wu. , [place], [place]. Referring Provider: Yvon Hyman, [address] [place], [address]. tel:[phone] [facility], [place], [place], [address], [place] tel:[phone] Rosalie No Information 4 Lomeli Bryce. , [place], [place]. Referring Provider: Yvon Hyman, [address] [place], [address]. tel:[phone] [facility], [place], [place], [address], [place] tel:[phone] Rosalie No Information 4 Armani Wu. , [place], [place]. Referring Provider: Yvon Hyman, [address] [place], [address]. tel:[phone] [facility], [place], [place], [address], [place] tel:[phone] Rosalie No Information 4 Ohdallas Briseno. . Referring Provider: Yvon Hyman, [address] [place], [address]. tel:[phone] [facility] [facility], [place], [place], [address], [place] tel:[phone] Rosalie No Information 4 Armani Villalobos , [place], [place]. Referring Provider: Yvon Hyman, [address] [place], [address]. tel:[phone] [facility] [address], [place], [place], [address], [place] tel:[phone] Rosalie Unspecified urinary incontinence 4 Modglin Tera. . Referring Provider: Yvon Hyman, [address] [place], [address]. tel:[phone] [facility] [facility], [place], [place], [address], [place] tel:[phone] Rosalie No Information 2 Armani Villalobos , [place], [place]. Referring Provider: Sg Young, [address] [place] [address], [address]. tel:[phone] [facility] [address], [id number], [place] tel:[phone] Rosalie No Information 2 Armani Villalobos , [place], [place]. Referring Provider: Sg Young, [address] [place], [address]. tel:[phone] [facility] [facility], [place], [address], [place] tel:[phone] Rosalie No Information 2 Arm[place], [place]. Referring Provider: Sg Young, [address] [place], [address]. tel:[phone] [facility] [facility], [place], [place], [address], [place] tel:[phone] Rosalie No Information 2 Lomeli Bryce. , [place], [place]. Referring Provider: Sg Young, [address] [place] [address], [address]. tel:[phone] [place], [place] [id number] [facility], [place], [place], [address], [place] tel:[phone] Rosalie No Information 2 Lomeli Bryce. , [place], [place]. Referring Provider: Sg Young, [address] [place] [address], [address]. tel:[phone] [place] [id number] [place] [address], [place], [place], [address], [place] tel:[phone] Rosalie No Information 0 2 Lomeli Bryce. , [place], [place]. Referring Provider: Sg Young [address] [place] [address], [address]. tel:[phone] [place] [id number] [place] [address], [place], [place], [address], [place] tel:[phone] Rosalie No Information Sep-2 2 Lomeli Bryce. , [place], [place]. Referring Provider: Sg Young, [address] [place] [address], [address]. tel:[phone] [place] [id number] [place] [address], [place], [place], [address], [place] tel:[phone] Rosalie No Information Sep-2 2 Lomeli Bryce. , [place], [place]. Referring Provider: Sg Young [address] [place] [address], [address]. tel:[phone] [place] [address] [facility] [address], [place], [place], [address], [place] tel:[phone] Rosalie No Information Apr-2 0-202 2 Lomeli Bryce. , [place], [place]. Referring Provider: Sg Young [address] [place] [address], [address]. tel:[phone] [facility], [address], [place], [place], [address], [place] tel:[phone] Rosalie No Information Apr-0 6-202 2 Lomeli Bryce. , [place], [place]. Referring Provider: Sg Young, [address] [place] [address], [place], [address]. tel:[phone] [place] [address] [address], [place], [place], [address], [place] tel:[phone] Rosalie No Information Apr-0 4-202 2 Lomeli Bryce. , [place], [place]. Referring Provider: Sg Young, [address] [place] [address], [address]. tel:[phone] [place] [address] [place], [place] [address]uite [facility], [place], [address], [place] tel:[phone] Rosalie No Information Mar-3 0-202 2 Lomeli Bryce. , [place], [place]. Referring Provider: Sg Young, [address] [place] [address], [place], [address]. tel:[phone] [place] [address] [address] [place] [address], [place], [place], [address], [place] tel:[phone] Rosalie No Information Mar-2 3-202 2 Lomeli Bryce. , [place], [place]. Referring Provider: Sg Young, [address] [place] [address], [place], [address]. tel:[phone] [place] [address] [address] [facility], [place], [place], [address], [place] tel:[phone] Rosalie No Information Mar-2 1-202 2 Lomeli Rbyce. , [place], [place]. Referring Provider: Sg Young, [address] [place] [address], [place], [address]. tel:[phone] [place] [address] [facility], [place], [place], [address], [place] tel:[phone] Rosalie No Information Mar-1 6-202 2 Lomeli Bryce. , [place], [place]. Referring Provider: Sg Young, [address] [place] [address], [place], [address]. tel:[phone] [facility], [address], [place], [place], [address], [place] tel:[phone] Rosalie No Information Aug-0 2 Armani Woodsn. , [place], [place]. Referring Provider: Sg Young, [address] [place] [address], [address]. tel:[phone] [facility], [address], [place], [place], [address], [place] tel:[phone] Rosalie No Information Aug-0 2 Armani Woodsn. , [place], [place]. Referring Provider: Sg Young, [address] [place] [address], [address]. tel:[phone] [facility] [address] [facility] [address], [place], [place], [address], [place] tel:[phone] Rosalie No Information b-2 2 Armani Woodsn. , [place], [place]. Referring Provider: Sg Young, [address] [place] [address], [address]. tel:[phone] [facility], [address] [facility], [place], [address], [place] tel:[phone] Rosalie No Information b-2 2 Armani Wu. , [place], [place]. Referring Provider: Sg Young, [address] [place] [address], [place], [address]. tel:[phone] [facility], [address], [place], [address], [place] tel:[phone] Rosalie No Information Jul-2 2 Armani Woodsn. , [place], [place]. Referring Provider: Sg Young, [address] [place] [address], [address]. tel:[phone] [facility], [place], [place], [address], [place] tel:[phone] Rosalie No Information 2 Lomeli Bryce. , [place], [place]. Referring Provider: Sg Young, [address] [place] [address], [address]. tel:[phone] [place] [address], [place], [place], [address], [place] tel:[phone] Rosalie No Information 2 Lomeli Bryce. , [place], [place]. Referring Provider: Sg Young, [address] [place] [address], [address]. tel:[phone] [facility] [address] [facility] [address], [place], [address], [place] tel:[phone] Rosalie No Information 2 Lomeli Bryce. , [place], [place]. Referring Provider: Sg Young, [address] [place] [address], [address]. tel:[phone] [place], [place] [id number] [facility], [place], [address], [place] tel:[phone] Rosalie No Information 2 Lomeli Bryce. , [place], [place]. Referring Provider: Sg Young, [address] [place] [address], [address]. tel:[phone] [facility] [address] [place] [address], [place], [address], [place] tel:[phone] Rosalie No Information 2 Lomeli Bryce. , [place], [place]. Referring Provider: Sg Young, [address] [place] [address], [address]. tel:[phone] [facility] [facility], [place], [place], [address], [place] tel:[phone] Rosalie No Information 2 Lomeli Bryce. , [place], [place]. Referring Provider: Sg Young [address] [place] [address], [address]. tel:[phone] [place] [address] [address], [place], [address], [place] tel:[phone] Rosalie No Information 2 Armani Wu. [place], [place]. Referring Provider: Sg Young, [address] [facility], [place], [address]. tel:[phone] [facility], [place], [address], [place] tel:[phone] Rosalie No Information 2 Armani Villalobos [place]. Referring Provider: Sg Young, [address] [facility], [place], [address]. tel:[phone] [facility], [place], [place], [address], [place] tel:[phone] Rosalie No Information 1 Makler Luke. . [facility], [place], [address], [place] tel:[phone] Rosalie No Information 1 Makler Luke. . [facility], [place], [place], [address], [place] tel:[phone] Rosalie No Information 1 Makler Luke. . [facility], [place], [place], [address], [place] tel:[phone] Rosalie No Information 1 Makler Luke. . [facility], [place], [place], [address], [place] tel:[phone] Rosalie No Information 1 Makler Luke. . [facility], [place], [address], [place] tel:[phone] Rosalie No Information 1 Makler Luke. . [facility], [place], [place], [address], [place] tel:[phone] Rosalie No Information Sep-0 - 1 Armani Villalobos [place], [place]. [facility], [place], [place], [address], tel:[phone] Rosalie No Information Sep-0 1 Scheldt Trixie. . [facility], [place], [place], [address], [place] tel:[phone] Rosalie No Information Aug-3 1 [place]held[place] Trixie. . [facility], [place], [place], [address], [place] tel:[phone] Rosalie No Information Aug-2 1 [place] Trixie. . [facility], [place], [place], [address], [place] tel:[phone] Rosalie No Information Aug-2 1 Armani Villalobos [place], [place]. [facility], [place], [place], [address], [place] tel:[phone] Rosalie Unspecified disorder of synovium and tendon, right shoulderPain in right shoulder Dec-2 0- 8 Makler Luke. . [facility], [place], [place], [address], [place] tel:[phone] Nora Unspecified disorder of synovium and tendon, right shoulderPain in right shoulder Dec- 8-201 8 Makler Luke. . [facility], [place], [place], [address], [place] tel:[phone] Nora Unspecified disorder of synovium and tendon, right shoulderPain in right shoulder Dec- 1-201 8 Makler Luke. . [facility], [place], [place], [address], [place] tel:[phone] Rosalie Unspecified disorder of synovium and tendon, right shoulderPain in right shoulder 8 Makler Luke. . [facility], [place], [place], [address], [place] tel:[phone] Rosalie Unspecified disorder of synovium and tendon, right shoulderPain in right shoulder 8 Bee Santos. . [facility], [place], [place], [address], [place] tel:[phone] Rosalie Unspecified disorder of synovium and tendon, right shoulderPain in right shoulder 8 Makler Luke. . [facility], [place], [place], [address], tel:[phone] Rosalie Unspecified disorder of synovium and tendon, right shoulderPain in right shoulder 8 Makler Luke. . [facility], [place], [place], [address], [place] tel:[phone] Rosalie Unspecified disorder of synovium and tendon, right shoulderPain in right shoulder 8 Makler Luke. . [facility], [place], [place], [address], [place] tel:[phone] Nora No Information 2 Taran Vincent. [address] [facility], [address], [place], [place], [facility], [place]. tel:[phone] [facility], [place], [place], [address], [place] tel:[phone] Rosalie LumbagoPain in joint involving pelvic region and thigh 2 Taran Vincent. [address] [facility], [address], [place], [place], [facility], [place]. tel:[phone] Family History Family Member Type Diagnosis Age At Onset No Information Payers Payer name Insurance type Covered green party ID Authormalena head(s) [employer] [place] [id number] Social History Type Description Quantity Date Captured [...]
--- OUTSIDE RECORDS SUMMARY | 2024-05-25 02:15 | XMS_ITS | Continuity of Care Document ---
Author Organization [facility] Address [address] [place] [address] [address] [place] [address] Phone Care Team Providers Care Kiln Furniture Saw Tender Name Role Phone Lomeli PT,MPT,ATC, Bryce Unavailable [...] Diagnoses Date Provider Providers Copied on Encounter [facility] [place], [place], [place], [address], tel:[phone] [place] No Information 4 Armani Villalobos [place]. Referring Provider: Tiffanie Yousif [address], [place], [address]. tel:[phone] [facility], [place], [place], [address], tel:[phone] [place] No Information 4 Armani [place]alobos [place]. Referring Provider: Tiffanie Yousif [address], [place], [address]. tel:[phone] [facility], [place], [place], [address], tel:[phone] [place] No Information 4 Armani [place] Referring Provider: Tiffanie Yousif [address], [place], [address]. tel:[phone] [facility], [address], [place], [place], [address], [place] tel:[phone] [place] No Information 4 Juni Briseno. . Referring Provider: Yvon Hyman, [address] [place], [address]. tel:[phone] [facility] [address], [place], [place], [address], [place] tel:[phone] [place] No Information 4 Lomeli Bryce. , [place]. Referring Provider: Yvon Hyman, [address] [place], [address]. tel:[phone] [facility], [place], [place], [address], [place] tel:[phone] [place] No Information 4 Armani Wu. , [place] Referring Provider: Yvon Hyman, [address] [place], [address]. tel:[phone] [facility], [place], [place], [address], [place] tel:[phone] [place] No Information 4 Lomeli Bryce. , [place]. Referring Provider: Yvon Hyman, [address] [place], [address]. tel:[phone] [facility], [place], [place], [address], [place] tel:[phone] [place] No Information 4 Armani Wu. , [place] Referring Provider: Yvon Hyman, [address] [place], [address]. tel:[phone] [facility], [place], [place], [address], [place] tel:[phone] [place] No Information 4 Ohdallas Briseno. . Referring Provider: Yvon Hyman, [address] [place], [address]. tel:[phone] [facility] [facility] [address], [place], [place], [address], [place] tel:[phone] [place] No Information 4 Armani Villalobos , [place], [place]. Referring Provider: Yvon Hyman, [address] [place], [address]. tel:[phone] [facility] [address], [place], [place], [address], [place] tel:[phone] [place] Unspecified urinary incontinence 4 Modglin Tera. . Referring Provider: Yvon Hyman, [address] [place], [address]. tel:[phone] [facility], [place], [place], [address], [place] tel:[phone] [place] No Information 2 Armani Villalobos , [place]. Referring Provider: Sg Young, [address] [place] [address], [address]. tel:[phone] [facility] [address], [id number], [place] tel:[phone] [place] No Information 2 Armani Villalobos , [place], [place]. Referring Provider: Sg Young, [address] [place], [address]. tel:[phone] [facility] [facility] [place], [place], [place], [address], [place] tel:[phone] [place] No Information 2 [place] Referring Provider: Sg Young, [address] [place], [address]. tel:[phone] [facility] [facility] [place], [place], [place], [address], [place] tel:[phone] [place] No Information 2 Lomeli Bryce. , [place]. Referring Provider: Sg Young, [address] [place] [address], [address]. tel:[phone] [place] [place] [id number] [facility], [place], [place], [address], [place] tel:[phone] [place] No Information 2 Lomeli Bryce. , [place] Referring Provider: Sg Young, [address] [place] [address], [address]. tel:[phone] [place] [id number] [place] [address], [place], [place], [address], [place] tel:[phone] [place] No Information 0 2 Lomeli Bryce. , [place] Referring Provider: Sg Young [address] [place] [address], [address]. tel:[phone] [place] [id number] [place] [address], [place], [place], [address], [place] tel:[phone] [place] No Information Sep-2 2 Lomeli Bryce. , [place] Referring Provider: Sg Young, [address] [place] [address], [address]. tel:[phone] [place] [id number] [place] [address], [place], [place], [address], [place] tel:[phone] [place] No Information Sep-2 2 Lomeli Bryce. , [place] Referring Provider: Sg Young [address] [place] [address], [address]. tel:[phone] [place], [place] [id number] [facility] [address], [place], [place], [address], [place] tel:[phone] [place] No Information Apr-2 0-202 2 Lomeli Bryce. , [place]. Referring Provider: Sg Young [address] [place] [address], [address]. tel:[phone] [facility], [address], [place], [place], [address], [place] tel:[phone] [place] No Information Apr-0 6-202 2 Lomeli Bryce. , [place] Referring Provider: Sg Young, [address] [place] [address], [place], [address]. tel:[phone] [place] [address] [address], [place], [place], [address], [place] tel:[phone] [place] No Information Apr-0 4-202 2 Lomeli Bryce. , [place]. Referring Provider: Sg Young, [address] [place] [address], [address]. tel:[phone] [place] [address] [place], [place] [address] [place], [place], [place], [address], [place] tel:[phone] [place] No Information Mar-3 0-202 2 Lomeli Bryce. , [place]. Referring Provider: Sg Young, [address] [place] [address], [place], [address]. tel:[phone] [place] [address] [address] [place] [address], [place], [place], [address], [place] tel:[phone] [place] No Information Mar-2 3-202 2 Lomeli Bryce. , [place] Referring Provider: Sg Young, [address] [place] [address], [place], [address]. tel:[phone] [place] [address] [facility] [address], [place], [place], [address], [place] tel:[phone] [place] No Information Mar-2 1-202 2 Lomeli Bryce. , [place] Referring Provider: Sg Young, [address] [place] [address], [place], [address]. tel:[phone] [place], [place] [id number] [facility], [place], [place], [address], [place] tel:[phone] [place] No Information Mar-1 6-202 2 Lomeli Bryce. , [place]. Referring Provider: Sg Young, [address] [place] [address], [place], [address]. tel:[phone] [facility], [address], [place], [place], [address], [place] tel:[phone] [place] No Information Aug-0 2 Armani Woodsn. , [place]. Referring Provider: Sg Young, [address] [place] [address], [address]. tel:[phone] [facility], [address], [place], [place], [address], [place] tel:[phone] [place] No Information Aug-0 2 Armani Woodsn. , [place]. Referring Provider: Sg Young, [address] [place] [address], [address]. tel:[phone] [facility] [address], [place], [place], [address], [place] tel:[phone] [place] No Information b-2 2 Armani Woodsn. , [place] Referring Provider: Sg Young, [address] [place] [address], [address]. tel:[phone] [facility], [address], [place], [place], [address], [place] tel:[phone] [place] No Information b-2 2 Armani Wu. , [place] Referring Provider: Sg Young, [address] [place] [address], [place], [address]. tel:[phone] [facility], [address], [place], [place], [address], [place] tel:[phone] [place] No Information Jul-2 2 Armani Woodsn. , [place] Referring Provider: Sg Young, [address] [place] [address], [address]. tel:[phone] [facility], [place], [place], [address], [place] tel:[phone] [place] No Information 2 Lomeli Bryce. , [place]. Referring Provider: Sg Young, [address] [place] [address], [address]. tel:[phone] [place] [id number], [place], [place], [address], [place] tel:[phone] [place] No Information 2 Lomeli Bryce. , [place] Referring Provider: Sg Young, [address] [place] [address], [address]. tel:[phone] [facility] [address], [place], [place], [address], [place] tel:[phone] [place] No Information 2 Lomeli Bryce. , [place] Referring Provider: Sg Young, [address] [place] [address], [address]. tel:[phone] [place] [id number] [facility] [place], [place], [place], [address], [place] tel:[phone] [place] No Information 2 Lomeli Bryce. , [place] Referring Provider: Sg Young, [address] [place] [address], [address]. tel:[phone] [facility] [address] [place] [address], [place], [place], [address], [place] tel:[phone] [place] No Information 2 Lomeli Bryce. , [place] Referring Provider: Sg Young, [address] [place] [address], [address]. tel:[phone] [facility] [facility] [facility], [place], [place], [address], [place] tel:[phone] [place] No Information 2 Lomeli Bryce. , [place] Referring Provider: Sg Young [address] [place] [address], [address]. tel:[phone] [place] [address] [address], [place], [place], [address], [place] tel:[phone] [place] No Information 2 Armani Wu. [place] Referring Provider: Sg Young, [address] [facility], [place], [address]. tel:[phone] [facility], [place], [place], [address], [place] tel:[phone] [place] No Information 2 Armani [place]alobos [place] Referring Provider: Sg Young, [address] [facility], [place], [address]. tel:[phone] [facility], [place], [place], [address], [place] tel:[phone] [place] No Information 1 Makler Luke. . [facility], [place], [place], [address], [place] tel:[phone] [place] No Information 1 Makler Luke. . [facility], [place], [place], [address], [place] tel:[phone] [place] No Information 1 Makler Luke. . [facility], [place], [place], [address], [place] tel:[phone] [place] No Information 1 Makler Luke. . [facility], [place], [place], [address], [place] tel:[phone] [place] No Information 1 Makler Luke. . [facility], [place], [place], [address], [place] tel:[phone] [place] No Information 1 Makler Luke. . [facility], [place], [place], [address], [place] tel:[phone] [place] No Information Sep-0 - 1 Armani [place]alobos [place], [place]. [facility], [place], [place], [address], tel:[phone] [place] No Information Sep-0 1 [place] Trixie. . [facility], [place], [place], [address], [place] tel:[phone] [place] No Information Aug-3 1 [place] Trixie. . [facility], [place], [place], [address], [place] tel:[phone] [place] No Information Aug-2 1 [place] Trixie. . [facility], [place], [place], [address], [place] tel:[phone] [place] No Information Aug-2 1 Armani [place]al[place]os [place]. [facility], [place], [place], [address], [place] tel:[phone] [place] Unspecified disorder of synovium and tendon, right shoulderPain in right shoulder Dec-2 0- 8 Makler Luke. . [facility], [place], [place], [address], [place] tel:[phone] [place] Unspecified disorder of synovium and tendon, right shoulderPain in right shoulder Dec- 8-201 8 Makler Luke. . [facility], [place], [place], [address], [place] tel:[phone] [place] Unspecified disorder of synovium and tendon, right shoulderPain in right shoulder Dec- 1-201 8 Makler Luke. . [facility], [place], [place], [address], [place] tel:[phone] [place] Unspecified disorder of synovium and tendon, right shoulderPain in right shoulder 8 Makler Luke. . [facility], [place], [place], [address], [place] tel:[phone] [place] Unspecified disorder of synovium and tendon, right shoulderPain in right shoulder 8 Bee Santos. . [facility], [place], [place], [address], [place] tel:[phone] [place] Unspecified disorder of synovium and tendon, right shoulderPain in right shoulder 8 Makler Luke. . [facility], [place], [place], [address], tel:[phone] [place] Unspecified disorder of synovium and tendon, right shoulderPain in right shoulder 8 Makler Luke. . [facility], [place], [place], [address], [place] tel:[phone] [place] Unspecified disorder of synovium and tendon, right shoulderPain in right shoulder 8 Makler Luke. . [facility], [place], [place], [address], [place] tel:[phone] [place] No Information 2 Taran Vincent. [address] [facility], [address], [place], [place], [facility], [place]. tel:[phone] [facility], [place], [place], [address], [place] tel:[phone] [place] LumbagoPain in joint involving pelvic region and thigh 2 Taran Vincent. [address] [facility], [address], [place], [place], [facility], [place]. tel:[phone] Family History Family Member Type Diagnosis Age At Onset No Information Payers Payer name Insurance type Covered green party ID Authormalena head(s) [employer] [place] [id number] Social History Type Description Quantity Date Captured [...]
--- OUTSIDE RECORDS SUMMARY | 2024-05-25 02:15 | XMS_ITS | Continuity of Care Document ---
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 Referring Provider: Tiffanie Yousif [address], [place], [address]. tel:[phone] [facility], [place], [place], [address], tel:[phone] [place] No Information 4 Armani Villalobos [place], [place]. Referring Provider: Tiffanie Yousif [address], [place], [address]. tel:[phone] [facility], [place], [place], [address], tel:[phone] [place] No Information 4 Armani Villalobos [place], [place]. Referring Provider: Tiffanie Yousif [address], [place], [address]. tel:[phone] [facility], [address], [place], [place], [address], [place] tel:[phone] [place] No Information 4 Juni Briseno. . Referring Provider: Yvon Hyman, [address] [place], [address]. tel:[phone] [facility] [address], [place], [place], [address], [place] tel:[phone] [place] No Information 4 Lomeli Bryce. , [place], [place]. Referring Provider: Yvon Hyman, [address] [place], [address]. tel:[phone] [facility], [place], [place], [address], [place] tel:[phone] [place] No Information 4 Armani Wu. , [place], [place]. Referring Provider: Yvon Hyman, [address] [place], [address]. tel:[phone] [facility], [place], [place], [address], [place] tel:[phone] [place] No Information 4 Lomeli Bryce. , [place], [place]. Referring Provider: Yvon Hyman, [address] [place], [address]. tel:[phone] [facility], [place], [place], [address], [place] tel:[phone] [place] No Information 4 Armani Wu. , [place], [place]. Referring Provider: Yvon Hyman, [address] [place], [address]. tel:[phone] [facility], [place], [place], [address], [place] tel:[phone] [place] No Information 4 [place] Briseno. . Referring Provider: Yvon Hyman, [address] [place], [address]. tel:[phone] [facility] [facility], [place], [place], [address], [place] tel:[phone] [place] No Information 4 Armani Villalobos , [place], [place]. Referring Provider: Yvon Hyman, [address] [place], [address]. tel:[phone] [facility] [address], [place], [place], [address], [place] tel:[phone] [place] Unspecified urinary incontinence 4 Modglin Tera. . Referring Provider: Yvon Hyman, [address] [place], [address]. tel:[phone] [facility] [facility], [place], [place], [address], [place] tel:[phone] [place] No Information 2 Armani Villalobos , [place], [place]. Referring Provider: Sg Young, [address] [place] [address], [address]. tel:[phone] [facility] [address], [id number], [place] tel:[phone] [place] No Information 2 Armani Villalobos , [place], [place]. Referring Provider: Sg Young, [address] [place], [address]. tel:[phone] [facility] [facility], [place], [place], [address], [place] tel:[phone] [place] No Information 2 Armani [place]alob[place], [place]. Referring Provider: Sg Young, [address] [place], [address]. tel:[phone] [facility] [facility], [place], [place], [address], [place] tel:[phone] [place] No Information 2 Lomeli Bryce. , [place], [place]. Referring Provider: Sg Young, [address] [place] [address], [address]. tel:[phone] [place] [address] [facility], [place], [place], [address], [place] tel:[phone] [place] No Information 2 Lomeli Bryce. , [place], [place]. Referring Provider: Sg Young, [address] [place] [address], [address]. tel:[phone] [place] [address] [place] [address], [place], [place], [address], [place] tel:[phone] [place] No Information 0 2 Lomeli Bryce. , [place], [place]. Referring Provider: Sg Young [address] [place] [address], [address]. tel:[phone] [place] [address] [place] [address], [place], [place], [address], [place] tel:[phone] [place] No Information Sep-2 2 Lomeli Bryce. , [place], [place]. Referring Provider: Sg Young, [address] [place] [address], [address]. tel:[phone] [place] [address] [place] [address], [place], [place], [address], [place] tel:[phone] [place] No Information Sep-2 2 Lomeli Bryce. , [place], [place]. Referring Provider: Sg Young [address] [place] [address], [address]. tel:[phone] [place] [address] [facility] [address], [place], [place], [address], [place] tel:[phone] [place] No Information Apr-2 0-202 2 Lomeli Bryce. , [place], [place]. Referring Provider: Sg Young [address] [place] [address], [address]. tel:[phone] [facility], [address], [place], [place], [address], [place] tel:[phone] [place] No Information Apr-0 6-202 2 Lomeli Bryce. , [place], [place]. Referring Provider: Sg Young, [address] [place] [address], [place], [address]. tel:[phone] [place] [address] [address], [place], [place], [address], [place] tel:[phone] [place] No Information Apr-0 4-202 2 Lomeli Bryce. , [place], [place]. Referring Provider: Sg Young, [address] [place] [address], [address]. tel:[phone] [place] [address] [place], [place] [address]uite [facility], [place], [place], [address], [place] tel:[phone] [place] No Information Mar-3 0-202 2 Lomeli Bryce. , [place], [place]. Referring Provider: Sg Young, [address] [place] [address], [place], [address]. tel:[phone] [place] [address] [address] [place] [address], [place], [place], [address], [place] tel:[phone] [place] No Information Mar-2 3-202 2 Lomeli Bryce. , [place], [place]. Referring Provider: Sg Young, [address] [place] [address], [place], [address]. tel:[phone] [place] [address] [address] [facility] [address], [place], [place], [address], [place] tel:[phone] [place] No Information Mar-2 1-202 2 Lomeli Bryce. , [place], [place]. Referring Provider: Sg Young, [address] [place] [address], [place], [address]. tel:[phone] [place] [address] [facility], [place], [place], [address], [place] tel:[phone] [place] No Information Mar-1 6-202 2 Lomeli Bryce. , [place], [place]. Referring Provider: Sg Young, [address] [place] [address], [place], [address]. tel:[phone] [facility], [address], [place], [place], [address], [place] tel:[phone] [place] No Information Aug-0 2 Armani Woodsn. , [place], [place]. Referring Provider: Sg Young, [address] [place] [address], [address]. tel:[phone] [facility], [address], [place], [place], [address], [place] tel:[phone] [place] No Information Aug-0 2 Armani Woodsn. , [place], [place]. Referring Provider: Sg Young, [address] [place] [address], [address]. tel:[phone] [facility] [address] [facility] [address], [place], [place], [address], [place] tel:[phone] [place] No Information b-2 2 Armani Woodsn. , [place], [place]. Referring Provider: Sg Young, [address] [place] [address], [address]. tel:[phone] [facility], [address] [facility] [address], [place], [place], [address], [place] tel:[phone] [place] No Information b-2 2 Armani Wu. , [place], [place]. Referring Provider: Sg Young, [address] [place] [address], [place], [address]. tel:[phone] [facility], [address], [place], [place], [address], [place] tel:[phone] [place] No Information Jul-2 2 Armani Woodsn. , [place], [place]. Referring Provider: Sg Young, [address] [place] [address], [address]. tel:[phone] [facility], [place], [place], [address], [place] tel:[phone] [place] No Information 2 Lomeli Bryce. , [place], [place]. Referring Provider: Sg Young, [address] [place] [address], [address]. tel:[phone] [place] [address], [place], [place], [address], [place] tel:[phone] [place] No Information 2 Lomeli Bryce. , [place], [place]. Referring Provider: Sg Young, [address] [place] [address], [address]. tel:[phone] [facility] [address] [facility] [address], [place], [place], [address], [place] tel:[phone] [place] No Information 2 Lomeli Bryce. , [place], [place]. Referring Provider: Sg Young, [address] [place] [address], [address]. tel:[phone] [place] [address] [facility], [place], [place], [address], [place] tel:[phone] [place] No Information 2 Lomeli Bryce. , [place], [place]. Referring Provider: Sg Young, [address] [place] [address], [address]. tel:[phone] [facility] [address] [place] [address], [place], [place], [address], [place] tel:[phone] [place] No Information 2 Lomeli Bryce. , [place], [place]. Referring Provider: Sg Young, [address] [place] [address], [address]. tel:[phone] [facility] [facility], [place], [place], [address], [place] tel:[phone] [place] No Information 2 Lomeli Bryce. , [place], [place]. Referring Provider: Sg Young [address] [place] [address], [address]. tel:[phone] [place] [address] [address], [place], [place], [address], [place] tel:[phone] [place] No Information 2 Armani Wu. [place]. Referring Provider: Sg Young, [address] [facility], [place], [address]. tel:[phone] [facility], [place], [place], [address], [place] tel:[phone] [place] No Information 2 Armani Villalobos [place]. Referring Provider: Sg Young, [address] [facility], [place], [address]. tel:[phone] [facility], [place], [place], [address], [place] tel:[phone] [place] No Information 1 Makler Luke. . [facility], [place], [place], [address], [place] tel:[phone] [place] No Information 1 Makler Luke. . [facility], [place], [place], [address], [place] tel:[phone] [place] No Information 1 Makler Luke. . [facility], [place], [place], [address], [place] tel:[phone] [place] No Information 1 Makler Luke. . [facility], [place], [place], [address], [place] tel:[phone] [place] No Information 1 Makler Luke. . [facility], [place], [place], [address], [place] tel:[phone] [place] No Information 1 Makler Luke. . [facility], [place], [place], [address], [place] tel:[phone] [place] No Information Sep-0 - 1 Armani Villalobos [place]. [facility], [place], [place], [address], tel:[phone] [place] No Information Sep-0 1 [place] T[place]ie. . [facility], [place], [place], [address], [place] tel:[phone] [place] No Information Aug-3 1 [place] T[place]. . [facility], [place], [place], [address], [place] tel:[phone] [place] No Information Aug-2 1 [place] T[place]. . [facility], [place], [place], [address], [place] tel:[phone] [place] No Information Aug-2 1 Armani Villalobos [place], [place]. [facility], [place], [place], [address], [place] tel:[phone] [place] Unspecified disorder of synovium and tendon, right shoulderPain in right shoulder Dec-2 0- 8 Makler Luke. . [facility], [place], [place], [address], [place] tel:[phone] [place] Unspecified disorder of synovium and tendon, right shoulderPain in right shoulder Dec- 8-201 8 Makler Luke. . [facility], [place], [place], [address], [place] tel:[phone] [place] Unspecified disorder of synovium and tendon, right shoulderPain in right shoulder Dec- 1-201 8 Makler Luke. . [facility], [place], [place], [address], [place] tel:[phone] [place] Unspecified disorder of synovium and tendon, right shoulderPain in right shoulder 8 Makler Luke. . [facility], [place], [place], [address], [place] tel:[phone] [place] Unspecified disorder of synovium and tendon, right shoulderPain in right shoulder 8 Bee Santos. . [facility], [place], [place], [address], [place] tel:[phone] [place] Unspecified disorder of synovium and tendon, right shoulderPain in right shoulder 8 Makler Luke. . [facility], [place], [place], [address], tel:[phone] [place] Unspecified disorder of synovium and tendon, right shoulderPain in right shoulder 8 Makler Luke. . [facility], [place], [place], [address], [place] tel:[phone] [place] Unspecified disorder of synovium and tendon, right shoulderPain in right shoulder 8 Makler Luke. . [facility], [place], [place], [address], [place] tel:[phone] [place] No Information 2 Taran Vincent. [address] [facility], [address], [place], [place], [facility], [place]. tel:[phone] [facility], [place], [place], [address], [place] tel:[phone] [place] LumbagoPain in joint involving pelvic region and thigh 2 Taran Vincent. [address] [facility], [address], [place], [place], [facility], [place]. tel:[phone] Family History Family Member Type Diagnosis Age At Onset No Information Payers Payer name Insurance type Covered libertarian ID Authormalena head(s) [employer] [place] [id number] Social History Type Description Quantity Date Captured [...]
--- OUTSIDE RECORDS SUMMARY | 2024-05-25 02:15 | XMS_ITS | Continuity of Care Document ---
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, [place], [place], [id number], tel:[phone] [place] No Information 4 Armani Villalobos [place], [place]. Referring Provider: Tiffanie Yousif [address], [place], [address]. tel:[phone] [facility], [place], [place], [address], tel:[phone] [place] No Information 4 Armani [place]al[place]. Referring Provider: Tiffanie Yousif [address], [place], [address]. tel:[phone] [facility], [place], [place], [address], tel:[phone] [place] No Information 4 Armani [place]. Referring Provider: Tiffanie Yousif [address], [place], [address]. tel:[phone] [facility], [address], [place], [place], [address], [place] tel:[phone] [place] No Information 4 Juni Briseno. . Referring Provider: Yvon Hyman, [address] [place], [address]. tel:[phone] [facility] [address], [place], [place], [address], [place] tel:[phone] [place] No Information 4 Lomeli Bryce. , [place], [place]. Referring Provider: Yvon Hyman, [address] [place], [address]. tel:[phone] [facility], [place], [place], [address], [place] tel:[phone] [place] No Information 4 Armani Wu. , [place]. Referring Provider: Yvon Hyman, [address] [place], [address]. tel:[phone] [facility], [place], [address], [place] tel:[phone] [place] No Information 4 Lomeli Bryce. , [place]. Referring Provider: Yvon Hyman, [address] [place], [address]. tel:[phone] [facility], [place], [place], [address], [place] tel:[phone] [place] No Information 4 Armani Wu. , [place]. Referring Provider: Yvon Hyman, [address] [place], [address]. tel:[phone] [facility], [place], [place], [address], [place] tel:[phone] [place] No Information 4 Ohdallas Briseno. . Referring Provider: Yvon Hyman, [address] [place], [address]. tel:[phone] [facility] [facility], [place], [place], [address], [place] tel:[phone] [place] No Information 4 Armani Villalobos , [place], [place]. Referring Provider: Yvon Hyman, [address] [place], [address]. tel:[phone] [facility] [address], [place], [place], [address], [place] tel:[phone] [place] Unspecified urinary incontinence 4 Modglin Tera. . Referring Provider: Yvon Hyman, [address] [place], [address]. tel:[phone] [facility] [facility], [place], [address], [place] tel:[phone] [place] No Information 2 Armani Villalobos , [place], [place]. Referring Provider: Sg Young, [address] [place] [address], [address]. tel:[phone] [facility] [address], [id number], [place] tel:[phone] [place] No Information 2 Armani Villalobos , [place]. Referring Provider: Sg Young, [address] [place], [address]. tel:[phone] [facility] [facility], [place], [place], [address], [place] tel:[phone] [place] No Information 2 Arm[place]. Referring Provider: Sg Young, [address] [place], [address]. tel:[phone] [facility] [facility], [place], [place], [address], [place] tel:[phone] [place] No Information 2 Lomeli Byrce. , [place]. Referring Provider: Sg Young, [address] [place] [address], [address]. tel:[phone] [place], [place] [id number] [facility], [place], [place], [address], [place] tel:[phone] [place] No Information 2 Lomeli Bryce. , [place]. Referring Provider: Sg Young, [address] [place] [address], [address]. tel:[phone] [place] [id number] [place] [address], [place], [place], [address], [place] tel:[phone] [place] No Information 0 2 Lomeli Bryce. , [place]. Referring Provider: Sg Young [address] [place] [address], [address]. tel:[phone] [place], [place] [id number] [place] [address], [place], [place], [address], [place] tel:[phone] [place] No Information Sep-2 2 Lomeli Bryce. , [place]. Referring Provider: Sg Young, [address] [place] [address], [address]. tel:[phone] [place] [address] [place] [address], [place], [place], [address], [place] tel:[phone] [place] No Information Sep-2 2 Lomeli Bryce. , [place]. Referring Provider: Sg Young [address] [place] [address], [address]. tel:[phone] [place] [id number] [facility], [place], [place], [address], [place] tel:[phone] [place] No Information Apr-2 0-202 2 Lomeli Bryce. , [place]. Referring Provider: Sg Young [address] [place] [address], [address]. tel:[phone] [facility], [address], [place], [place], [address], [place] tel:[phone] [place] No Information Apr-0 6-202 2 Lomeli Bryce. , [place]. Referring Provider: Sg Young, [address] [place] [address], [place], [address]. tel:[phone] [place] [address] [address], [place], [place], [address], [place] tel:[phone] [place] No Information Apr-0 4-202 2 Lomeli Bryce. , [place], [place]. Referring Provider: Sg Young, [address] [place] [address], [address]. tel:[phone] [place] [address] [place], [place] [address] [facility], [place], [place], [address], [place] tel:[phone] [place] No Information Mar-3 0-202 2 Lomeli Bryce. , [place]. Referring Provider: Sg Young, [address] [place] [address], [place], [address]. tel:[phone] [place] [address] [address] [place] [address], [place], [place], [address], [place] tel:[phone] [place] No Information Mar-2 3-202 2 Lomeli Bryce. , [place]. Referring Provider: Sg Young, [address] [place] [address], [place], [address]. tel:[phone] [place] [address] [address] [facility], [place], [place], [address], [place] tel:[phone] [place] No Information Mar-2 1-202 2 Lomeli Bryce. , [place]. Referring Provider: Sg Young, [address] [place] [address], [place], [address]. tel:[phone] [place] [id number] [facility], [place], [place], [address], [place] tel:[phone] [place] No Information Mar-1 6-202 2 Lomeli Bryce. , [place]. Referring Provider: Sg Young, [address] [place] [address], [place], [address]. tel:[phone] [facility], [address], [place], [place], [address], [place] tel:[phone] [place] No Information Aug-0 2 Armani [place]. , [place]. Referring Provider: Sg Young, [address] [place] [address], [address]. tel:[phone] [facility], [address], [place], [place], [address], [place] tel:[phone] [place] No Information Aug-0 2 Armani [place]. , [place]. Referring Provider: Sg Young, [address] [place] [address], [address]. tel:[phone] [facility] [address] [facility], [place], [place], [address], [place] tel:[phone] [place] No Information b-2 2 Armani [place]. , [place]. Referring Provider: Sg Young, [address] [place] [address], [address]. tel:[phone] [facility], [address] [facility], [place], [place], [address], [place] tel:[phone] [place] No Information b-2 2 Armani Wu. , [place]. Referring Provider: Sg Young, [address] [place] [address], [place], [address]. tel:[phone] [facility], [address], [place], [place], [address], [place] tel:[phone] [place] No Information Jul-2 2 Armani [place]. , [place]. Referring Provider: Sg Young, [address] [place] [address], [address]. tel:[phone] [facility], [place], [address], [place] tel:[phone] [place] No Information 2 Lomeli Bryce. , [place]. Referring Provider: Sg Young, [address] [place] [address], [address]. tel:[phone] [place], [place] [address], [place], [place], [address], [place] tel:[phone] [place] No Information 2 Lomeli Bryce. , [place]. Referring Provider: Sg Young, [address] [place] [address], [address]. tel:[phone] [facility] [address] [facility], [place], [place], [address], [place] tel:[phone] [place] No Information 2 Lomeli Bryce. , [place]. Referring Provider: Sg Young, [address] [place] [address], [address]. tel:[phone] [place], [place] [id number] [facility], [place], [place], [address], [place] tel:[phone] [place] No Information 2 Lomeli Bryce. , [place]. Referring Provider: Sg Young, [address] [place] [address], [address]. tel:[phone] [facility] [address] [place] [address], [place], [place], [address], [place] tel:[phone] [place] No Information 2 Lomeli Bryce. , [place]. Referring Provider: Sg Young, [address] [place] [address], [address]. tel:[phone] [facility] [facility], [place], [place], [address], [place] tel:[phone] [place] No Information 2 Lomeli Bryce. , [place]. Referring Provider: Sg Young [address] [place] [address], [address]. tel:[phone] [place] [address] [address], [place], [place], [address], [place] tel:[phone] [place] No Information 2 Armani Wu. [place], [place]. Referring Provider: Sg Young, [address] [facility], [place], [address]. tel:[phone] [facility], [place], [place], [address], [place] tel:[phone] [place] No Information 2 Armani Villalobos [place]. Referring Provider: Sg Young, [address] [facility], [place], [address]. tel:[phone] [facility], [place], [place], [address], [place] tel:[phone] [place] No Information 1 Makler Luke. . [facility], [place], [place], [address], [place] tel:[phone] [place] No Information 1 Makler Luke. . [facility], [place], [place], [address], [place] tel:[phone] [place] No Information 1 Makler Luke. . [facility], [place], [place], [address], [place] tel:[phone] [place] No Information 1 Makler Luke. . [facility], [place], [place], [address], [place] tel:[phone] [place] No Information 1 Makler Luke. . [facility], [place], [place], [address], [place] tel:[phone] [place] No Information 1 Makler Luke. . [facility], [place], [place], [address], [place] tel:[phone] [place] No Information Sep-0 - 1 Armani [place]alobos [place]. [facility], [place], [place], [address], tel:[phone] [place] No Information Sep-0 1 Scheldt Trixie. . [facility], [place], [place], [address], [place] tel:[phone] [place] No Information Aug-3 1 Scheldt Trixie. . [facility], [place], [place], [address], [place] tel:[phone] [place] No Information Aug-2 1 Scheldt Trixie. . [facility], [place], [place], [address], [place] tel:[phone] [place] No Information Aug-2 1 Armani [place]al[place]. [facility], [place], [place], [address], [place] tel:[phone] [place] Unspecified disorder of synovium and tendon, right shoulderPain in right shoulder Dec-2 0- 8 Makler Luke. . [facility], [place], [place], [address], [place] tel:[phone] [place] Unspecified disorder of synovium and tendon, right shoulderPain in right shoulder Dec- 8-201 8 Makler Luke. . [facility], [place], [place], [address], [place] tel:[phone] [place] Unspecified disorder of synovium and tendon, right shoulderPain in right shoulder Dec- 1-201 8 Makler Luke. . [facility], [place], [place], [address], [place] tel:[phone] [place] Unspecified disorder of synovium and tendon, right shoulderPain in right shoulder 8 Makler Luke. . [facility], [place], [place], [address], [place] tel:[phone] [place] Unspecified disorder of synovium and tendon, right shoulderPain in right shoulder 8 Bee Santos. . [facility], [place], [place], [address], [place] tel:[phone] [place] Unspecified disorder of synovium and tendon, right shoulderPain in right shoulder 8 Makler Luke. . [facility], [place], [place], [address], tel:[phone] [place] Unspecified disorder of synovium and tendon, right shoulderPain in right shoulder 8 Makler Luke. . [facility], [place], [place], [address], [place] tel:[phone] [place] Unspecified disorder of synovium and tendon, right shoulderPain in right shoulder 8 Makler Luke. . [facility], [place], [place], [address], [place] tel:[phone] [place] No Information 2 Taran Vincent. [address] [facility], [address], [place], [place], [facility], [place]. tel:[phone] [facility], [place], [place], [address], [place] tel:[phone] [place] LumbagoPain in joint involving pelvic region and thigh 2 Taran Vincent. [address] [facility], [address], [place], [place], [facility], [place]. tel:[phone] Family History Family Member Type Diagnosis Age At Onset No Information Payers Payer name Insurance type Covered green party ID Authormalena head(s) [employer] [place] [id number] Social History Type Description Quantity Date Captured [...]
--- OUTSIDE RECORDS SUMMARY | 2024-05-25 02:15 | XMS_ITS | Continuity of Care Document ---
Author Organization [employer] [place] Address [address] [place] [address] [address] [place] [address] Phone Care Team Providers Care Sap Administrator Name Role Phone Lomeli PT,MPT,ATC, Bryce Unavailable [...] Diagnoses Date Provider Providers Copied on Encounter [facility] [facility], [place], [place], [id number], tel:[phone] [place] No Information [address] [place] [place], [place], [place]. Referring Provider: Tiffanie Yousif [address], [place], [address]. tel:[phone] [facility], [place], [place], [address], tel:[phone] [place] No Information 4 Armani Villalobos [place], [place]. Referring Provider: Tiffanie Yousif [address], [place], [address]. tel:[phone] [facility], [place], [place], [address], tel:[phone] [place] No Information 4 Armani [place]al[place]. Referring Provider: Tiffanie Yousif [address], [place], [address]. tel:[phone] [facility], [address], [place], [place], [address], [place] tel:[phone] [place] No Information 4 Juni Briseno. . Referring Provider: Yvon Hyman, [address] [place], [address]. tel:[phone] [facility] [address], [place], [place], [address], [place] tel:[phone] [place] No Information 4 Lomeli Bryce. , [place], [place]. Referring Provider: Yvon Hyman, [address] [place], [address]. tel:[phone] [facility], [place], [place], [address], [place] tel:[phone] [place] No Information 4 Armani Wu. , [place]. Referring Provider: Yvon Hyman, [address] [place], [address]. tel:[phone] [facility], [place], [place], [address], [place] tel:[phone] [place] No Information 4 Lomeli Bryce. , [place]. Referring Provider: Yvon Hyman, [address] [place], [address]. tel:[phone] [facility], [place], [place], [address], [place] tel:[phone] [place] No Information 4 Armani Wu. , [place]. Referring Provider: Yvon Hyman, [address] [place], [address]. tel:[phone] [facility], [place], [place], [address], [place] tel:[phone] [place] No Information 4 Ohdallas Briseno. . Referring Provider: Yvon Hyman, [address] [place], [address]. tel:[phone] [facility] [facility], [place], [place], [address], [place] tel:[phone] [place] No Information 4 Armani Villalobos , [place], [place]. Referring Provider: Yvon Hyman, [address] [place], [address]. tel:[phone] [facility] [address], [place], [place], [address], [place] tel:[phone] [place] Unspecified urinary incontinence 4 Modglin Tera. . Referring Provider: Yvon Hyman, [address] [place], [address]. tel:[phone] [facility] [facility], [place], [place], [address], [place] tel:[phone] [place] No Information 2 Armani Villalobos , [place], [place]. Referring Provider: Sg Young, [address] [place] [address], [address]. tel:[phone] [facility] [address], [id number], [place] tel:[phone] [place] No Information 2 Armani Villalobos , [place], [place]. Referring Provider: Sg Young, [address] [place], [address]. tel:[phone] [facility] [facility], [place], [place], [address], [place] tel:[phone] [place] No Information 2 Armani [place]. Referring Provider: Sg Young, [address] [place], [address]. tel:[phone] [facility] [facility], [place], [place], [address], [place] tel:[phone] [place] No Information 2 Lomeli Bryce. , [place]. Referring Provider: Sg Young, [address] [place] [address], [address]. tel:[phone] [place] [id number] [facility], [place], [place], [address], [place] tel:[phone] [place] No Information 2 Lomeli Bryce. , [place]. Referring Provider: Sg Young, [address] [place] [address], [address]. tel:[phone] [place] [id number] [place] [address], [place], [place], [address], [place] tel:[phone] [place] No Information 0 2 Lomeli Bryce. , [place]. Referring Provider: Sg Young [address] [place] [address], [address]. tel:[phone] [place] [address] [place] [address], [place], [place], [address], [place] tel:[phone] [place] No Information Sep-2 2 Lomeli Bryce. , [place]. Referring Provider: Sg Young, [address] [place] [address], [address]. tel:[phone] [place] [id number] [place] [address], [place], [place], [address], [place] tel:[phone] [place] No Information Sep-2 2 Lomeli Bryce. , [place]. Referring Provider: Sg Young [address] [place] [address], [address]. tel:[phone] [place], [place] [id number] [facility] [address], [place], [place], [address], [place] tel:[phone] [place] No Information Apr-2 0-202 2 Lomeli Bryce. , [place]. Referring Provider: Sg Young [address] [place] [address], [address]. tel:[phone] [facility], [address], [place], [place], [address], [place] tel:[phone] [place] No Information Apr-0 6-202 2 Lomeli Bryce. , [place]. Referring Provider: Sg Young, [address] [place] [address], [place], [address]. tel:[phone] [place] [address] [address], [place], [place], [address], [place] tel:[phone] [place] No Information Apr-0 4-202 2 Lomeli Bryce. , [place]. Referring Provider: Sg Young, [address] [place] [address], [address]. tel:[phone] [place] [address] [place], [place] [address] [facility], [place], [place], [address], [place] tel:[phone] [place] No Information Mar-3 0-202 2 Lomeli Bryce. , [place]. Referring Provider: Sg Young, [address] [place] [address], [place], [address]. tel:[phone] [place] [address] [address] [address], [place], [place], [address], [place] tel:[phone] [place] No Information Mar-2 3-202 2 Lomeli Bryce. , [place]. Referring Provider: Sg Young, [address] [place] [address], [place], [address]. tel:[phone] [place] [address] [facility], [place], [place], [address], [place] tel:[phone] [place] No Information Mar-2 1-202 2 Lomeli Bryce. , [place]. Referring Provider: Sg Young, [address] [place] [address], [place], [address]. tel:[phone] [place] [id number] [facility], [place], [place], [address], [place] tel:[phone] [place] No Information Mar-1 6-202 2 Lomeli Bryce. , [place]. Referring Provider: Sg Young, [address] [place] [address], [place], [address]. tel:[phone] [facility], [address], [place], [place], [address], [place] tel:[phone] [place] No Information Aug-0 2 Armani Woodsn. , [place]. Referring Provider: Sg Young, [address] [place] [address], [address]. tel:[phone] [facility], [address], [place], [place], [address], [place] tel:[phone] [place] No Information Aug-0 2 Armani Woodsn. , [place]. Referring Provider: Sg Young, [address] [place] [address], [address]. tel:[phone] [facility] [address] [facility] [address], [place], [place], [address], [place] tel:[phone] [place] No Information b-2 2 Armani Woodsn. , [place]. Referring Provider: Sg Young, [address] [place] [address], [address]. tel:[phone] [facility], [address] [facility], [place], [place], [address], [place] tel:[phone] [place] No Information b-2 2 Armani Wu. , [place] Referring Provider: Sg Young, [address] [place] [address], [place], [address]. tel:[phone] [facility], [address], [place], [place], [address], [place] tel:[phone] [place] No Information Jul-2 2 Armani Woodsn. , [place]. Referring Provider: Sg Young, [address] [place] [address], [address]. tel:[phone] [facility], [place], [place], [address], [place] tel:[phone] [place] No Information 2 Lomeli Bryce. , [place]. Referring Provider: Sg Young, [address] [place] [address], [address]. tel:[phone] [place] [address], [place], [place], [address], [place] tel:[phone] [place] No Information 2 Lomeli Bryce. , [place]. Referring Provider: Sg Young, [address] [place] [address], [address]. tel:[phone] [facility] [address] [facility] [address], [place], [place], [address], [place] tel:[phone] [place] No Information 2 Lomeli Bryce. , [place]. Referring Provider: Sg Young, [address] [place] [address], [address]. tel:[phone] [place] [id number] [facility], [place], [place], [address], [place] tel:[phone] [place] No Information 2 Lomeli Bryce. , [place]. Referring Provider: Sg Young, [address] [place] [address]. tel:[phone] [facility] [address] [address], [place], [place], [address], [place] tel:[phone] [place] No Information 2 Lomeli Bryce. , [place] Referring Provider: Sg Young, [address] [place] [address], [address]. tel:[phone] [facility] [facility], [place], [place], [address], [place] tel:[phone] [place] No Information 2 Lomeli Bryce. , [place]. Referring Provider: Sg Young [address] [place] [address], [address]. tel:[phone] [place] [address] [address], [place], [place], [address], [place] tel:[phone] [place] No Information [address], [place]. Referring Provider: Sg Young, [address] [facility], [place], [address]. tel:[phone] [facility], [place], [place], [address], [place] tel:[phone] [place] No Information [address]. Referring Provider: Sg Young, [address] [facility], [place], [address]. tel:[phone] [facility], [place], [place], [address], [place] tel:[phone] [place] No Information 1 Makler Luke. . [facility], [place], [place], [address], [place] tel:[phone] [place] No Information 1 Makler Luke. . [facility], [place], [place], [address], [place] tel:[phone] [place] No Information 1 Makler Luke. . [facility], [place], [address], [place] tel:[phone] [place] No Information 1 Makler Luke. . [facility], [place], [place], [address], [place] tel:[phone] [place] No Information 1 Makler Luke. . [facility], [place], [place], [address], [place] tel:[phone] [place] No Information 1 Makler Luke. . [facility], [place], [place], [address], [place] tel:[phone] [place] No Information Sep-0 - 1 Armani [place]alobos [place]. [facility], [place], [place], [address], tel:[phone] [place] No Information Sep-0 1 Scheldt Trixie. . [facility], [place], [place], [address], [place] tel:[phone] [place] No Information Aug-3 1 Scheldt Trixie. . [facility], [place], [place], [address], [place] tel:[phone] [place] No Information Aug-2 1 Scheldt Trixie. . [facility], [place], [place], [address], [place] tel:[phone] [place] No Information Aug-2 1 Armani [place]alobos [place]. [facility], [place], [place], [address], [place] tel:[phone] [place] Unspecified disorder of synovium and tendon, right shoulderPain in right shoulder Dec-2 0- 8 Makler Luke. . [facility], [place], [place], [address], [place] tel:[phone] [place] Unspecified disorder of synovium and tendon, right shoulderPain in right shoulder Dec- 8-201 8 Makler Luke. . [facility], [place], [place], [address], [place] tel:[phone] [place] Unspecified disorder of synovium and tendon, right shoulderPain in right shoulder Dec- 1-201 8 Makler Luke. . [facility], [place], [place], [address], [place] tel:[phone] [place] Unspecified disorder of synovium and tendon, right shoulderPain in right shoulder 8 Makler Luke. . [facility], [place], [place], [address], [place] tel:[phone] [place] Unspecified disorder of synovium and tendon, right shoulderPain in right shoulder 8 Bee Santos. . [facility], [place], [place], [address], [place] tel:[phone] [place] Unspecified disorder of synovium and tendon, right shoulderPain in right shoulder 8 Makler Luke. . [facility], [place], [place], [address], tel:[phone] [place] Unspecified disorder of synovium and tendon, right shoulderPain in right shoulder 8 Makler Luke. . [facility], [place], [place], [address], [place] tel:[phone] [place] Unspecified disorder of synovium and tendon, right shoulderPain in right shoulder 8 Makler Luke. . [facility], [place], [place], [address], [place] tel:[phone] [place] No Information 2 Taran Vincent. [address] [facility], [address], [place], [place], [facility], [place]. tel:[phone] [facility], [place], [place], [address], [place] tel:[phone] [place] LumbagoPain in joint involving pelvic region and thigh 2 Taran Vincent. [address] [facility], [address], [place], [place], [facility], [place]. tel:[phone] Family History Family Member Type Diagnosis Age At Onset No Information Payers Payer name Insurance type Covered green party ID Authormalena head(s) [employer] [place] [id number] Social History Type Description Quantity Date Captured [...]
--- OUTSIDE RECORDS SUMMARY | 2024-05-25 02:15 | XMS_ITS | Continuity of Care Document ---
Author Organization [employer] Address [address] [place] [address] [address] [place] [address] Phone Care Team Providers Care Call Center Supervisor Name Role Phone Lomeli PT,MPT,ATC, Bryce Unavailable [...] Date Provider Providers Copied on Encounter [facility] [facility] [place], [place], [place], [id number], tel:[phone] [place] No Information 4 Armani Villalobos [place], [place], [place]. Referring Provider: Tiffanie Yousif [address], [place], [address]. tel:[phone] [facility], [place], [place], [id number], tel:[phone] [place] No Information 4 Armani [place]. Referring Provider: Tiffanie Yousif [address], [place], [address]. tel:[phone] [facility], [place], [place], [address], tel:[phone] [place] No Information 4 Armani [place]. Referring Provider: Tiffanie Yousif [address], [place], [address]. tel:[phone] [facility], [address], [place], [place], [address], [place] tel:[phone] [place] No Information 4 Juni Briseno. . Referring Provider: Yvon Hyman, [address] [place], [address]. tel:[phone] [facility] [address], [place], [place], [address], [place] tel:[phone] [place] No Information 4 Lomeli Bryce. , [place], [place]. Referring Provider: Yvon Hyman, [address] [place], [address]. tel:[phone] [facility], [place], [place], [address], [place] tel:[phone] [place] No Information 4 Armani Wu. , [place]. Referring Provider: Yvon Hyman, [address] [place], [address]. tel:[phone] [facility], [place], [place], [address], [place] tel:[phone] [place] No Information 4 Lomeli Bryce. , [place]. Referring Provider: Yvon Hyman, [address] [place], [address]. tel:[phone] [facility], [place], [place], [address], [place] tel:[phone] [place] No Information 4 Armani Wu. , [place] Referring Provider: Yvon Hyman, [address] [place], [address]. tel:[phone] [facility], [place], [place], [address], [place] tel:[phone] [place] No Information 4 Ohdallas Briseno. . Referring Provider: Yvon Hyman, [address] [place], [address]. tel:[phone] [facility] [facility], [place], [place], [address], [place] tel:[phone] [place] No Information 4 Armani Villalobos , [place]. Referring Provider: Yvon Hyman, [address] [place], [address]. tel:[phone] [facility] [address], [place], [place], [address], [place] tel:[phone] [place] Unspecified urinary incontinence 4 Modglin Tera. . Referring Provider: Yvon Hyman, [address] [place], [address]. tel:[phone] [facility] [facility], [place], [place], [id number], [place] tel:[phone] [place] No Information 2 Armani Villalobos , [place]. Referring Provider: Sg Young, [address] [place] [address], [address]. tel:[phone] [facility] [address], [id number], [place] tel:[phone] [place] No Information 2 Armani Villalobos , [place]. Referring Provider: Sg Young, [address] [place], [address]. tel:[phone] [facility] [facility] [place], [place], [place], [address], [place] tel:[phone] [place] No Information 2 Armani [place] Referring Provider: Sg Young, [address] [place], [address]. tel:[phone] [facility] [facility] [place], [place], [place], [id number], [place] tel:[phone] [place] No Information 2 Lomeli Bryce. , [place]. Referring Provider: Sg Young, [address] [place] [address], [address]. tel:[phone] [place] [id number] [facility], [place], [place], [address], [place] tel:[phone] [place] No Information 2 Lomeli Bryce. , [place]. Referring Provider: Sg Young, [address] [place] [address], [address]. tel:[phone] [place] [id number] [place] [address], [place], [place], [address], [place] tel:[phone] [place] No Information 0 2 Lomeli Bry[place]. , [place]. Referring Provider: Sg Young [address] [place] [address], [address]. tel:[phone] [place] [id number] [place] [address], [place], [place], [address], [place] tel:[phone] [place] No Information Sep-2 2 Lomeli Bryce. , [place]. Referring Provider: Sg Young, [address] [place] [address], [address]. tel:[phone] [place] [address] [place] [address], [place], [place], [address], [place] tel:[phone] [place] No Information Sep-2 2 Lomeli Bryce. , [place]. Referring Provider: Sg Young [address] [place] [address], [address]. tel:[phone] [place] [id number] [facility] [address], [place], [address], [place] tel:[phone] [place] No Information Apr-2 0-202 2 Lomeli Bryce. , [place]. Referring Provider: Sg Young [address] [place] [address], [address]. tel:[phone] [facility], [address], [place], [place], [address], [place] tel:[phone] [place] No Information Apr-0 6-202 2 Lomeli Bryce. , [place]. Referring Provider: Sg Young, [address] [place] [address], [place], [address]. tel:[phone] [place] [address] [address], [place], [place], [address], [place] tel:[phone] [place] No Information Apr-0 4-202 2 Lomeli Bryce. , [place]. Referring Provider: Sg Young, [address] [place] [address], [address]. tel:[phone] [place] [address] [place], [place] [address] [facility] [place], [place], [place], [address], [place] tel:[phone] [place] No Information Mar-3 0-202 2 Lomeli Bryce. , [place]. Referring Provider: Sg Young, [address] [place] [address], [place], [address]. tel:[phone] [place] [address] [address] [address], [place], [place], [address], [place] tel:[phone] [place] No Information Mar-2 3-202 2 Lomeli Bryce. , [place]. Referring Provider: Sg Young, [address] [place] [address], [place], [address]. tel:[phone] [place] [address] [address] [facility] [address], [place], [place], [address], [place] tel:[phone] [place] No Information Mar-2 1-202 2 Lomeli Bryce. , [place]. Referring Provider: Sg Young, [address] [place] [address], [place], [address]. tel:[phone] [place] [id number] [facility], [place], [place], [address], [place] tel:[phone] [place] No Information Mar-1 6-202 2 Lomeli Bryce. , [place]. Referring Provider: Sg Young, [address] [place] [address], [place], [address]. tel:[phone] [facility], [address], [place], [place], [address], [place] tel:[phone] [place] No Information Aug-0 2 Armani Woodsn. , [place]. Referring Provider: Sg Young, [address] [place] [address], [address]. tel:[phone] [facility], [address], [place], [place], [address], [place] tel:[phone] [place] No Information Aug-0 2 Armani Woodsn. , [place] Referring Provider: Sg Young, [address] [place] [address], [address]. tel:[phone] [facility] [address] [facility] [address], [place], [place], [id number], [place] tel:[phone] [place] No Information b-2 2 Armani Woodsn. , [place] Referring Provider: Sg Young, [address] [place] [address], [address]. tel:[phone] [facility], [address] [facility], [place], [place], [address], [place] tel:[phone] [place] No Information b-2 2 Armani Wu. , [place] Referring Provider: Sg Young, [address] [place] [address], [place], [address]. tel:[phone] [facility], [address], [place], [place], [address], [place] tel:[phone] [place] No Information Jul-2 2 Armani Woodsn. , [place] Referring Provider: Sg Young, [address] [place] [address], [address]. tel:[phone] [facility], [place], [place], [address], [place] tel:[phone] [place] No Information 2 Lomeli Bryce. , [place] Referring Provider: Sg Young, [address] [place] [address], [address]. tel:[phone] [place] [address], [place], [place], [address], [place] tel:[phone] [place] No Information 2 Lomeli Bry[place]. , [place] Referring Provider: Sg Young, [address] [place] [address], [address]. tel:[phone] [facility] [address] [facility] [address], [place], [place], [address], [place] tel:[phone] [place] No Information 2 Lomeli [place]. , [place] Referring Provider: Sg Young, [address] [place] [address], [address]. tel:[phone] [place] [id number] [facility], [place], [place], [address], [place] tel:[phone] [place] No Information 2 Lomeli [place]. , [place] Referring Provider: Sg Young, [address] [place] [address], [address]. tel:[phone] [facility] [address] [address], [place], [place], [address], [place] tel:[phone] [place] No Information 2 Lomeli Bry[place]. , [place]. Referring Provider: Sg Young, [address] [place] [address], [address]. tel:[phone] [facility] [facility], [place], [place], [address], [place] tel:[phone] [place] No Information 2 Lomeli Bry[place]. , [place]. Referring Provider: Sg Young [address] [place] [address], [address]. tel:[phone] [place] [address] [address], [place], [place], [address], [place] tel:[phone] [place] No Information 2 Armani Wu. [place], [place]. Referring Provider: Sg Young, [address] [facility], [place], [address]. tel:[phone] [facility], [place], [place], [address], [place] tel:[phone] [place] No Information 2 Armani Villalobos [place] Referring Provider: Sg Young, [address] [facility], [place], [address]. tel:[phone] [facility], [place], [place], [address], [place] tel:[phone] [place] No Information 1 Makler Luke. . [facility], [place], [address], [place] tel:[phone] [place] No Information 1 Makler Luke. . [facility], [place], [place], [address], [place] tel:[phone] [place] No Information 1 Makler Luke. . [facility], [place], [address], [place] tel:[phone] [place] No Information 1 Makler Luke. . [facility], [place], [place], [address], [place] tel:[phone] [place] No Information 1 Makler Luke. . [facility], [place], [place], [address], [place] tel:[phone] [place] No Information 1 Makler Luke. . [facility], [place], [place], [address], [place] tel:[phone] [place] No Information Sep-0 - 1 Armani [place]alobos [place]. [facility], [place], [place], [address], tel:[phone] [place] No Information Sep-0 1 Scheldt Trixie. . [facility], [place], [address], [place] tel:[phone] [place] No Information Aug-3 1 Scheldt Trixie. . [facility], [place], [place], [address], [place] tel:[phone] [place] No Information Aug-2 1 Scheldt Trixie. . [facility], [place], [place], [address], [place] tel:[phone] [place] No Information Aug-2 1 Armani [place]. [facility], [place], [place], [address], [place] tel:[phone] [place] Unspecified disorder of synovium and tendon, right shoulderPain in right shoulder Dec-2 0- 8 Makler Luke. . [facility], [place], [place], [address], [place] tel:[phone] [place] Unspecified disorder of synovium and tendon, right shoulderPain in right shoulder Dec- 8-201 8 Makler Luke. . [facility], [place], [place], [address], [place] tel:[phone] [place] Unspecified disorder of synovium and tendon, right shoulderPain in right shoulder Dec- 1-201 8 Makler Luke. . [facility], [place], [place], [address], [place] tel:[phone] [place] Unspecified disorder of synovium and tendon, right shoulderPain in right shoulder 8 Makler Luke. . [facility], [place], [place], [address], [place] tel:[phone] [place] Unspecified disorder of synovium and tendon, right shoulderPain in right shoulder 8 Bee Santos. . [facility], [place], [place], [address], [place] tel:[phone] [place] Unspecified disorder of synovium and tendon, right shoulderPain in right shoulder 8 Makler Luke. . [facility], [place], [place], [address], tel:[phone] [place] Unspecified disorder of synovium and tendon, right shoulderPain in right shoulder 8 Makler Luke. . [facility], [place], [place], [address], [place] tel:[phone] [place] Unspecified disorder of synovium and tendon, right shoulderPain in right shoulder 8 Makler Luke. . [facility], [place], [place], [address], [place] tel:[phone] [place] No Information [address] [facility], [address], [place], [place], [facility], [place]. tel:[phone] [facility], [place], [address], [place] tel:[phone] [place] LumbagoPain in joint involving pelvic region and thigh [address] [facility], [address], [place], [place], [facility], [place]. tel:[phone] Family History Family Member Type Diagnosis Age At Onset No Information Payers Payer name Insurance type Covered alliance party ID Authormalena head(s) [employer] [place] [id number] Social History Type Description Quantity Date Captured [...]
--- OUTSIDE RECORDS SUMMARY | 2024-05-25 02:15 | XMS_ITS | Continuity of Care Document ---
Author Organization [employer] [place] Address [address] [place] [address] [address] [place] [address] Phone Care Team Providers Care Body Stylist Name Role Phone Lomeli PT,MPT,ATC, Bryce Unavailable [...] Diagnoses Date Provider Providers Copied on Encounter [facility] [facility], [place], [place], [id number], tel:[phone] [place] No Information 4 Armani Villalobos [place]. Referring Provider: Tiffanie Yousif [address], [place], [address]. tel:[phone] [facility], [place], [place], [address], tel:[phone] [place] No Information 4 Armani Villalobos [place], [place]. Referring Provider: Tiffanie Yousif [address], [place], [address]. tel:[phone] [facility], [place], [place], [address], tel:[phone] [place] No Information 4 Armani [place]. Referring Provider: Tiffanie Yousif [address], [place], [address]. tel:[phone] [facility], [address], [place], [place], [address], [place] tel:[phone] [place] No Information 4 Juni Briseno. . Referring Provider: Yvon Hyman, [address] [place], [address]. tel:[phone] [facility] [address], [place], [place], [address], [place] tel:[phone] [place] No Information 4 Lomeli Bryce. , [place], [place]. Referring Provider: Yvon Hyman, [address] [place], [address]. tel:[phone] [facility], [place], [place], [address], [place] tel:[phone] [place] No Information 4 Armani Wu. , [place], [place]. Referring Provider: Yvon Hyman, [address] [place], [address]. tel:[phone] [facility], [place], [place], [address], [place] tel:[phone] [place] No Information 4 Lomeli Bryce. , [place], [place]. Referring Provider: Yvon Hyman, [address] [place], [address]. tel:[phone] [facility], [place], [place], [address], [place] tel:[phone] [place] No Information 4 Armani Wu. , [place], [place]. Referring Provider: Yvon Hyman, [address] [place], [address]. tel:[phone] [facility], [place], [place], [address], [place] tel:[phone] [place] No Information 4 Ohdallas Briseno. . Referring Provider: Yvon Hyman, [address] [place], [address]. tel:[phone] [facility] [facility], [place], [place], [address], [place] tel:[phone] [place] No Information 4 Armani Villalobos , [place], [place]. Referring Provider: Yvon Hyman, [address] [place], [address]. tel:[phone] [facility] [address], [place], [place], [address], [place] tel:[phone] [place] Unspecified urinary incontinence 4 Modglin Tera. . Referring Provider: Yvon Hyman, [address] [place], [address]. tel:[phone] [facility] [facility], [place], [place], [address], [place] tel:[phone] [place] No Information 2 Armani Villalobos , [place], [place]. Referring Provider: Sg Young, [address] [place] [address], [address]. tel:[phone] [facility] [address], [id number], [place] tel:[phone] [place] No Information 2 Armani Villalobos , [place], [place]. Referring Provider: Sg Young, [address] [place], [address]. tel:[phone] [facility] [facility], [place], [address], [place] tel:[phone] [place] No Information 2 Armani [place]. Referring Provider: Sg Young, [address] [place], [address]. tel:[phone] [facility] [facility], [place], [place], [address], [place] tel:[phone] [place] No Information 2 Lomeli Bryce. , [place], [place]. Referring Provider: Sg Young, [address] [place] [address], [address]. tel:[phone] [place] [id number] [facility], [place], [place], [address], [place] tel:[phone] [place] No Information 2 Lomeli Bryce. , [place], [place]. Referring Provider: Sg Young, [address] [place] [address], [address]. tel:[phone] [place] [id number] [place] [address], [place], [place], [address], [place] tel:[phone] [place] No Information 0 2 Lomeli Bryce. , [place], [place]. Referring Provider: Sg Young [address] [place] [address], [address]. tel:[phone] [place] [id number] [place] [address], [place], [place], [address], [place] tel:[phone] [place] No Information Sep-2 2 Lomeli Bryce. , [place], [place]. Referring Provider: Sg Young, [address] [place] [address], [address]. tel:[phone] [place] [id number] [place] [address], [place], [place], [address], [place] tel:[phone] [place] No Information Sep-2 2 Lomeli Bryce. , [place], [place]. Referring Provider: Sg Young [address] [place] [address], [address]. tel:[phone] [place] [id number] [facility], [place], [place], [address], [place] tel:[phone] [place] No Information Apr-2 0-202 2 Lomeli Bryce. , [place], [place]. Referring Provider: Sg Young [address] [place] [address], [address]. tel:[phone] [facility], [address], [place], [place], [address], [place] tel:[phone] [place] No Information Apr-0 6-202 2 Lomeli Bryce. , [place], [place]. Referring Provider: Sg Young, [address] [place] [address], [place], [address]. tel:[phone] [place] [address] [address], [place], [place], [address], [place] tel:[phone] [place] No Information Apr-0 4-202 2 Lomeli Bryce. , [place], [place]. Referring Provider: Sg Young, [address] [place] [address], [address]. tel:[phone] [place] [address] [place], [place] [address] [facility], [place], [place], [address], [place] tel:[phone] [place] No Information Mar-3 0-202 2 Lomeli Bryce. , [place], [place]. Referring Provider: Sg Young, [address] [place] [address], [place], [address]. tel:[phone] [place] [address] [address] [place] [address], [place], [place], [address], [place] tel:[phone] [place] No Information Mar-2 3-202 2 Lomeli Bryce. , [place], [place]. Referring Provider: Sg Young, [address] [place] [address], [place], [address]. tel:[phone] [place] [address] [address] [facility], [place], [place], [address], [place] tel:[phone] [place] No Information Mar-2 1-202 2 Lomeli Bryce. , [place], [place]. Referring Provider: Sg Young, [address] [place] [address], [place], [address]. tel:[phone] [place] [address] [facility], [place], [address], [place] tel:[phone] [place] No Information Mar-1 6-202 2 Lomeli Bryce. , [place], [place]. Referring Provider: Sg Young, [address] [place] [address], [place], [address]. tel:[phone] [facility], [address], [place], [place], [address], [place] tel:[phone] [place] No Information Aug-0 2 Armani Wood[place]. , [place], [place]. Referring Provider: Sg Young, [address] [place] [address], [address]. tel:[phone] [facility], [address], [place], [place], [address], [place] tel:[phone] [place] No Information Aug-0 2 Armani Wood[place]. , [place], [place]. Referring Provider: Sg Young, [address] [place] [address], [address]. tel:[phone] [facility] [address] [facility], [place], [place], [address], [place] tel:[phone] [place] No Information b-2 2 Armani Wood[place]. , [place]. Referring Provider: Sg Young, [address] [place] [address], [address]. tel:[phone] [facility], [address] [facility], [place], [place], [address], [place] tel:[phone] [place] No Information b-2 2 Armani Wu. , [place], [place]. Referring Provider: Sg Young, [address] [place] [address], [place], [address]. tel:[phone] [facility], [address], [place], [place], [address], [place] tel:[phone] [place] No Information Jul-2 2 Armani Woodsn. , [place], [place]. Referring Provider: Sg Young, [address] [place] [address], [address]. tel:[phone] [facility], [place], [place], [address], [place] tel:[phone] [place] No Information 2 Lomeli Bryce. , [place], [place]. Referring Provider: Sg Young, [address] [place] [address], [address]. tel:[phone] [place] [address], [place], [place], [address], [place] tel:[phone] [place] No Information 2 Lomeli Bryce. , [place], [place]. Referring Provider: Sg Young, [address] [place] [address], [address]. tel:[phone] [facility] [address] [facility], [place], [place], [address], [place] tel:[phone] [place] No Information 2 Lomeli Bryce. , [place]. Referring Provider: Sg Young, [address] [place] [address], [address]. tel:[phone] [place] [id number] [facility], [place], [place], [address], [place] tel:[phone] [place] No Information 2 Lomeli Bryce. , [place]. Referring Provider: Sg Young, [address] [place] [address], [address]. tel:[phone] [facility] [address] [place] [address], [place], [place], [address], [place] tel:[phone] [place] No Information 2 Lomeli Bryce. , [place] Referring Provider: Sg Young, [address] [place] [address], [address]. tel:[phone] [facility] [facility], [place], [place], [address], [place] tel:[phone] [place] No Information 2 Lomeli Bryce. , [place], [place]. Referring Provider: Sg Young [address] [place] [address], [address]. tel:[phone] [place] [address] [address], [place], [place], [address], [place] tel:[phone] [place] No Information 2 Armani Wu. [place]. Referring Provider: Sg Young, [address] [facility], [place], [address]. tel:[phone] [facility], [place], [place], [address], [place] tel:[phone] [place] No Information 2 Armani Villalobos [place] Referring Provider: Sg Young, [address] [facility], [place], [address]. tel:[phone] [facility], [place], [place], [address], [place] tel:[phone] [place] No Information 1 Makler Luke. . [facility], [place], [place], [address], [place] tel:[phone] [place] No Information 1 Makler Luke. . [facility], [place], [place], [address], [place] tel:[phone] [place] No Information 1 Makler Luke. . [facility], [place], [place], [address], [place] tel:[phone] [place] No Information 1 Makler Luke. . [facility], [place], [place], [address], [place] tel:[phone] [place] No Information 1 Makler Luke. . [facility], [place], [place], [address], [place] tel:[phone] [place] No Information 1 Makler Luke. . [facility], [place], [place], [address], [place] tel:[phone] [place] No Information Sep-0 - 1 Armani Villalobos [place]. [facility], [place], [place], [address], tel:[phone] [place] No Information Sep-0 1 Scheldt Trixie. . [facility], [place], [place], [address], [place] tel:[phone] [place] No Information Aug-3 1 Scheldt Trixie. . [facility], [place], [place], [address], [place] tel:[phone] [place] No Information Aug-2 1 [place]heldt Trixie. . [facility], [place], [place], [address], [place] tel:[phone] [place] No Information Aug-2 1 Armani Villalobos [place]. [facility], [place], [place], [address], [place] tel:[phone] [place] Unspecified disorder of synovium and tendon, right shoulderPain in right shoulder Dec-2 0- 8 Makler Luke. . [facility], [place], [place], [address], [place] tel:[phone] [place] Unspecified disorder of synovium and tendon, right shoulderPain in right shoulder Dec- 8-201 8 Makler Luke. . [facility], [place], [place], [address], [place] tel:[phone] [place] Unspecified disorder of synovium and tendon, right shoulderPain in right shoulder Dec- 1-201 8 Makler Luke. . [facility], [place], [place], [address], [place] tel:[phone] [place] Unspecified disorder of synovium and tendon, right shoulderPain in right shoulder 8 Makler Luke. . [facility], [place], [place], [address], [place] tel:[phone] [place] Unspecified disorder of synovium and tendon, right shoulderPain in right shoulder 8 Bee Santos. . [facility], [place], [place], [address], [place] tel:[phone] [place] Unspecified disorder of synovium and tendon, right shoulderPain in right shoulder 8 Makler Luke. . [facility], [place], [place], [address], tel:[phone] [place] Unspecified disorder of synovium and tendon, right shoulderPain in right shoulder 8 Makler Luke. . [facility], [place], [place], [address], [place] tel:[phone] [place] Unspecified disorder of synovium and tendon, right shoulderPain in right shoulder 8 Makler Luke. . [facility], [place], [place], [address], [place] tel:[phone] [place] No Information 2 Taran Vincent. [address] [facility], [address], [place], [place], [facility], [place]. tel:[phone] [facility], [place], [place], [address], [place] tel:[phone] [place] LumbagoPain in joint involving pelvic region and thigh 2 Taran Vincent. [address] [facility], [address], [place], [place], [facility], [place]. tel:[phone] Family History Family Member Type Diagnosis Age At Onset No Information Payers Payer name Insurance type Covered green party ID Authormalena head(s) [employer] [place] [id number] Social History Type Description Quantity Date Captured [...]
--- OUTSIDE RECORDS SUMMARY | 2024-05-25 02:15 | XMS_ITS | Continuity of Care Document ---
Author Organization [facility] Address [address] [place] [address] [address] [place] [address] Phone Care Team Providers Care Field Marketing Lead Name Role Phone Lomeli PT,MPT,ATC, Bryce Unavailable [...] Diagnoses Date Provider Providers Copied on Encounter [facility] [facility], [place], [place], [id number], tel:[phone] [place] No Information 4 Armani Villalobos [place], [place]. Referring Provider: Tiffanie Yousif [address], [place], [address]. tel:[phone] [facility], [place], [place], [address], tel:[phone] [place] No Information 4 Armani Villalobos [place]. Referring Provider: Tiffanie Yousif [address], [place], [address]. tel:[phone] [facility], [place], [place], [address], tel:[phone] [place] No Information 4 Armani [place]al[place]. Referring Provider: Tiffanie Yousif [address], [place], [address]. tel:[phone] [facility], [address], [place], [place], [address], [place] tel:[phone] [place] No Information 4 Juni Briseno. . Referring Provider: Yvon Hyman, [address] [place], [address]. tel:[phone] [facility] [address], [place], [place], [address], [place] tel:[phone] [place] No Information 4 Lomeli Bryce. , [place], [place]. Referring Provider: Yvon Hyman, [address] [place], [address]. tel:[phone] [facility], [place], [address], [place] tel:[phone] [place] No Information 4 Armani Wu. , [place]. Referring Provider: Yvon Hyman, [address] [place], [address]. tel:[phone] [facility], [place], [place], [address], [place] tel:[phone] [place] No Information 4 Lomeli Bryce. , [place]. Referring Provider: Yvon Hyman, [address] [place], [address]. tel:[phone] [facility], [place], [place], [address], [place] tel:[phone] [place] No Information 4 Armani Wu. , [place]. Referring Provider: Yvon Hyman, [address] [place], [address]. tel:[phone] [facility], [place], [place], [address], [place] tel:[phone] [place] No Information 4 Ohdallas Briseno. . Referring Provider: Yvon Hyman, [address] [place], [address]. tel:[phone] [facility] [facility], [place], [address], [place] tel:[phone] [place] No Information 4 Armani Villalobos , [place]. Referring Provider: Yvon Hyman, [address] [place], [address]. tel:[phone] [facility] [address], [place], [address], [place] tel:[phone] [place] Unspecified urinary incontinence 4 Modglin Tera. . Referring Provider: Yvon Hyman, [address] [place], [address]. tel:[phone] [facility] [facility] [address], [place], [address], [place] tel:[phone] [place] No Information 2 Armani Villalobos , [place]. Referring Provider: Sg Young, [address] [place] [address], [address]. tel:[phone] [facility] [address], [id number], [place] tel:[phone] [place] No Information 2 Armani Villalobos , [place]. Referring Provider: Sg Young, [address] [place], [address]. tel:[phone] [facility] [facility], [place], [address], [place] tel:[phone] [place] No Information 2 Armani [place]al[place]. Referring Provider: Sg Young, [address] [place], [address]. tel:[phone] [facility] [facility], [place], [address], [place] tel:[phone] [place] No Information 2 Lomeli Bryce. , [place]. Referring Provider: Sg Young, [address] [place] [address], [address]. tel:[phone] [place] [id number] [facility], [place], [address], [place] tel:[phone] [place] No Information 2 Lomeli Bryce. , [place]. Referring Provider: Sg Young, [address] [place] [address], [address]. tel:[phone] [place] [id number] [place] [address], [place], [place], [address], [place] tel:[phone] [place] No Information 0 2 Lomeli Bryce. , [place]. Referring Provider: Sg Young [address] [place] [address], [address]. tel:[phone] [place] [id number] [place] [address], [place], [place], [address], [place] tel:[phone] [place] No Information Sep-2 2 Lomeli Bryce. , [place]. Referring Provider: Sg Young, [address] [place] [address], [address]. tel:[phone] [place] [id number] [place] [address], [place], [place], [address], [place] tel:[phone] [place] No Information Sep-2 2 Lomeli Bryce. , [place]. Referring Provider: Sg Young [address] [place] [address], [address]. tel:[phone] [place] [id number] [facility], [place], [address], [place] tel:[phone] [place] No Information Apr-2 0-202 2 Lomeli Bryce. , [place]. Referring Provider: Sg Young [address] [place] [address], [address]. tel:[phone] [facility], [address], [place], [place], [address], [place] tel:[phone] [place] No Information Apr-0 6-202 2 Lomeli Bryce. , [place]. Referring Provider: Sg Young, [address] [place] [address], [place], [address]. tel:[phone] [place] [address] [address], [place], [place], [address], [place] tel:[phone] [place] No Information Apr-0 4-202 2 Lomeli Bryce. , [place]. Referring Provider: Sg Young, [address] [place] [address], [address]. tel:[phone] [place] [address] [place], [place] [address] [facility], [place], [address], [place] tel:[phone] [place] No Information Mar-3 0-202 2 Lomeli Bryce. , [place]. Referring Provider: Sg Young, [address] [place] [address], [place], [address]. tel:[phone] [place] [address] [address] [place] [address], [place], [place], [address], [place] tel:[phone] [place] No Information Mar-2 3-202 2 Lomeli Bryce. , [place]. Referring Provider: Sg Young, [address] [place] [address], [place], [address]. tel:[phone] [place] [address] [address] [facility] [address], [place], [address], [place] tel:[phone] [place] No Information Mar-2 1-202 2 Lomeli Bryce. , [place]. Referring Provider: Sg Young, [address] [place] [address], [place], [address]. tel:[phone] [place] [id number] [facility], [place], [address], [place] tel:[phone] [place] No Information Mar-1 6-202 2 Lomeli Bryce. , [place]. Referring Provider: Sg Young, [address] [place] [address], [place], [address]. tel:[phone] [facility], [address], [place], [address], [place] tel:[phone] [place] No Information Aug-0 2 Armani Woodsn. , [place]. Referring Provider: Sg Young, [address] [place] [address], [address]. tel:[phone] [facility], [address], [place], [address], [place] tel:[phone] [place] No Information Aug-0 2 Armani Woodsn. , [place]. Referring Provider: Sg Young, [address] [place] [address], [address]. tel:[phone] [facility] [address] [facility] [address], [place], [address], [place] tel:[phone] [place] No Information b-2 2 Armani Woodsn. , [place]. Referring Provider: Sg Young, [address] [place] [address], [address]. tel:[phone] [facility], [address] [facility] [address], [place], [place], [address], [place] tel:[phone] [place] No Information b-2 2 Armani Wu. , [place]. Referring Provider: Sg Young, [address] [place] [address], [place], [address]. tel:[phone] [facility], [address], [place], [place], [address], [place] tel:[phone] [place] No Information Jul-2 2 Armani Woodsn. , [place]. Referring Provider: Sg Young, [address] [place] [address], [address]. tel:[phone] [facility], [place], [address], [place] tel:[phone] [place] No Information 2 Lomeli Bryce. , [place]. Referring Provider: Sg Young, [address] [place] [address], [address]. tel:[phone] [place] [id number], [place], [place], [address], [place] tel:[phone] [place] No Information 2 Lomeli Bryce. , [place]. Referring Provider: Sg Young, [address] [place] [address], [address]. tel:[phone] [facility] [address] [facility] [address], [place], [address], [place] tel:[phone] [place] No Information 2 Lomeli Bryce. , [place]. Referring Provider: Sg Young, [address] [place] [address], [address]. tel:[phone] [place] [id number] [facility], [place], [address], [place] tel:[phone] [place] No Information 2 Lomeli Bryce. , [place]. Referring Provider: Sg Young, [address] [place] [address], [address]. tel:[phone] [facility] [address] [place] [address], [place], [place], [address], [place] tel:[phone] [place] No Information 2 Lomeli Bryce. , [place]. Referring Provider: Sg Young, [address] [place] [address], [address]. tel:[phone] [facility] [facility], [place], [place], [address], [place] tel:[phone] [place] No Information 2 Lomeli Bryce. , [place] Referring Provider: Sg Young [address] [place] [address], [address]. tel:[phone] [place] [address] [address], [place], [place], [address], [place] tel:[phone] [place] No Information 2 Armani Wu. [place], [place]. Referring Provider: Sg Young, [address] [facility], [place], [address]. tel:[phone] [facility], [place], [address], [place] tel:[phone] [place] No Information 2 Armani Villalobos [place]. Referring Provider: Sg Young, [address] [facility] [employer] [employer] [facility], [place], [address]. tel:[phone] [facility], [place], [place], [address], [place] tel:[phone] [place] No Information 1 Makler Luke. . [facility], [place], [address], [place] tel:[phone] [place] No Information 1 Makler Luke. . [facility], [place], [address], [place] tel:[phone] [place] No Information 1 Makler Luke. . [facility], [place], [address], [place] tel:[phone] [place] No Information 1 Makler Luke. . [facility], [place], [place], [address], [place] tel:[phone] [place] No Information 1 Makler Luke. . [facility], [place], [place], [address], [place] tel:[phone] [place] No Information 1 Makler Luke. . [facility], [place], [address], [place] tel:[phone] [place] No Information Sep-0 - 1 Armani Villalobos [place]. [facility], [place], [address], tel:[phone] [place] No Information Sep-0 1 Scheldt Trixie. . [facility], [place], [place], [address], [place] tel:[phone] [place] No Information Aug-3 1 [place]t Trixie. . [facility], [place], [place], [address], [place] tel:[phone] [place] No Information Aug-2 1 [place]t Trixie. . [facility], [place], [place], [address], [place] tel:[phone] [place] No Information Aug-2 1 Armani [place]alobos [place]. [facility], [place], [address], [place] tel:[phone] [place] Unspecified disorder of synovium and tendon, right shoulderPain in right shoulder Dec-2 0- 8 Makler Luke. . [facility], [place], [place], [address], [place] tel:[phone] [place] Unspecified disorder of synovium and tendon, right shoulderPain in right shoulder Dec- 8-201 8 Makler Luke. . [facility], [place], [place], [address], [place] tel:[phone] [place] Unspecified disorder of synovium and tendon, right shoulderPain in right shoulder Dec- 1-201 8 Makler Luke. . [facility], [place], [address], [place] tel:[phone] [place] Unspecified disorder of synovium and tendon, right shoulderPain in right shoulder 8 Makler Luke. . [facility], [place], [place], [address], [place] tel:[phone] [place] Unspecified disorder of synovium and tendon, right shoulderPain in right shoulder 8 Bee Santos. . [facility], [place], [address], [place] tel:[phone] [place] Unspecified disorder of synovium and tendon, right shoulderPain in right shoulder 8 Makler Luke. . [facility], [place], [place], [address], tel:[phone] [place] Unspecified disorder of synovium and tendon, right shoulderPain in right shoulder 8 Makler Luke. . [facility], [place], [place], [address], [place] tel:[phone] [place] Unspecified disorder of synovium and tendon, right shoulderPain in right shoulder 8 Makler Luke. . [facility], [place], [address], [place] tel:[phone] [place] No Information 2 Taran Vincent. [address] [facility], [address], [place], [place], [facility], [place]. tel:[phone] [facility], [place], [place], [address], [place] tel:[phone] [place] LumbagoPain in joint involving pelvic region and thigh 2 Taran Vincent. [address] [facility], [address], [place], [place], [facility], [place]. tel:[phone] Family History Family Member Type Diagnosis Age At Onset No Information Payers Payer name Insurance type Covered green party ID Authormalena head(s) [employer] [place] [id number] Social History Type Description Quantity Date Captured [...]
--- OUTSIDE RECORDS SUMMARY | 2024-05-25 02:15 | XMS_ITS | Continuity of Care Document ---
Author Organization [employer] [place] Address [address] [place] [address] [address] [place] [address] Phone Care Team Providers Care Media Associate Name Role Phone Lomeli PT,MPT,ATC, Bryce Unavailable [...] Diagnoses Date Provider Providers Copied on Encounter [facility] [facility], [place], [place], [id number], tel:[phone] [place] No Information 4 Armani Villalobos [place]. Referring Provider: Tiffanie Yousif [address], [place], [address]. tel:[phone] [facility], [place], [place], [address], tel:[phone] [place] No Information 4 Armani Villalobos [place], [place]. Referring Provider: Tiffanie Yousif [address], [place], [address]. tel:[phone] [facility], [place], [place], [address], tel:[phone] [place] No Information 4 Armani [place]al[place]os [place], [place]. Referring Provider: Tiffanie Yousif [address], [place], [address]. tel:[phone] [facility], [address], [place], [address], [place] tel:[phone] [place] No Information 4 Juni Briseno. . Referring Provider: Yvon Hyman, [address] [place], [address]. tel:[phone] [facility] [address], [place], [place], [address], [place] tel:[phone] [place] No Information 4 Lomeli Bryce. , [place], [place]. Referring Provider: Yvon Hyman, [address] [place], [address]. tel:[phone] [facility], [place], [place], [address], [place] tel:[phone] [place] No Information 4 Armani Wu. , [place], [place]. Referring Provider: Yvon Hyman, [address] [place], [address]. tel:[phone] [facility], [place], [place], [address], [place] tel:[phone] [place] No Information 4 Lomeli Bryce. , [place], [place]. Referring Provider: Yvon Hyman, [address] [place], [address]. tel:[phone] [facility], [place], [place], [address], [place] tel:[phone] [place] No Information 4 Armani Wu. , [place], [place]. Referring Provider: Yvon Hyman, [address] [place], [address]. tel:[phone] [facility], [place], [place], [address], [place] tel:[phone] [place] No Information 4 Ohdallas Briseon. . Referring Provider: Yvon Hyman, [address] [place], [address]. tel:[phone] [facility] [facility], [place], [address], [place] tel:[phone] [place] No Information 4 Armani Villalobos , [place], [place]. Referring Provider: Yvon Hyman, [address] [place], [address]. tel:[phone] [facility] [address], [place], [address], [place] tel:[phone] [place] Unspecified urinary incontinence 4 Modglin Tera. . Referring Provider: Yvon Hyman, [address] [place], [address]. tel:[phone] [facility] [facility], [place], [address], [place] tel:[phone] [place] No Information 2 Armani Villalobos , [place], [place]. Referring Provider: Sg Young, [address] [place] [address], [address]. tel:[phone] [facility] [address], [id number], [place] tel:[phone] [place] No Information 2 Armani Villalobos , [place], [place]. Referring Provider: Sg Young, [address] [place], [address]. tel:[phone] [facility] [facility], [place], [address], [place] tel:[phone] [place] No Information 2 Armani [place]alob[place], [place]. Referring Provider: Sg Young, [address] [place], [address]. tel:[phone] [facility] [facility], [place], [place], [address], [place] tel:[phone] [place] No Information 2 Lomeli Bryce. , [place], [place]. Referring Provider: Sg Young, [address] [place] [address], [address]. tel:[phone] [place] [id number] [facility], [place], [place], [address], [place] tel:[phone] [place] No Information 2 Lomeli Bryce. , [place], [place]. Referring Provider: Sg Young, [address] [place] [address], [address]. tel:[phone] [place], [place] [id number] [place] [address], [place], [address], [place] tel:[phone] [place] No Information 0 2 Lomeli Bryce. , [place], [place]. Referring Provider: Sg Young [address] [place] [address], [address]. tel:[phone] [place] [id number] [place] [address], [place], [place], [address], [place] tel:[phone] [place] No Information Sep-2 2 Lomeli Bryce. , [place], [place]. Referring Provider: Sg Young, [address] [place] [address], [address]. tel:[phone] [place] [id number] [place] [address], [place], [address], [place] tel:[phone] [place] No Information Sep-2 2 Lomeli Bryce. , [place], [place]. Referring Provider: Sg Young [address] [place] [address], [address]. tel:[phone] [place] [id number] [facility], [place], [place], [address], [place] tel:[phone] [place] No Information Apr-2 0-202 2 Lomeli Bryce. , [place], [place]. Referring Provider: Sg Young [address] [place] [address], [address]. tel:[phone] [facility], [address], [place], [place], [address], [place] tel:[phone] [place] No Information Apr-0 6-202 2 Lomeli Bryce. , [place], [place]. Referring Provider: Sg Young, [address] [place] [address], [place], [address]. tel:[phone] [place] [address] [address], [place], [place], [address], [place] tel:[phone] [place] No Information Apr-0 4-202 2 Lomeli Bryce. , [place], [place]. Referring Provider: Sg Young, [address] [place] [address], [address]. tel:[phone] [place] [address] [place], [place] [address]uite [facility], [place], [address], [place] tel:[phone] [place] No Information Mar-3 0-202 2 Lomeli Bryce. , [place], [place]. Referring Provider: Sg Young, [address] [place] [address], [place], [address]. tel:[phone] [place] [address] [address] [address], [place], [address], [place] tel:[phone] [place] No Information Mar-2 3-202 2 Lomeli Bryce. , [place], [place]. Referring Provider: Sg Young, [address] [place] [address], [place], [address]. tel:[phone] [place] [address] [address] [facility], [place], [address], [place] tel:[phone] [place] No Information Mar-2 1-202 2 Lomeli Bryce. , [place], [place]. Referring Provider: Sg Young, [address] [place] [address], [place], [address]. tel:[phone] [place] [id number] [facility], [place], [address], [place] tel:[phone] [place] No Information Mar-1 6-202 2 Lomeli Bryce. , [place], [place]. Referring Provider: Sg Young, [address] [place] [address], [place], [address]. tel:[phone] [facility], [address], [place], [place], [address], [place] tel:[phone] [place] No Information Aug-0 2 Armani Woodsn. , [place], [place]. Referring Provider: Sg Young, [address] [place] [address], [address]. tel:[phone] [facility], [address], [place], [place], [address], [place] tel:[phone] [place] No Information Aug-0 2 Armani Woodsn. , [place], [place]. Referring Provider: Sg Young, [address] [place] [address], [address]. tel:[phone] [facility] [address] [facility], [place], [place], [address], [place] tel:[phone] [place] No Information b-2 2 Armani Woodsn. , [place]. Referring Provider: Sg Young, [address] [place] [address], [address]. tel:[phone] [facility], [address] [facility], [place], [address], [place] tel:[phone] [place] No Information b-2 2 Armani Wu. , [place]. Referring Provider: Sg Young, [address] [place] [address], [place], [address]. tel:[phone] [facility], [address], [place], [address], [place] tel:[phone] [place] No Information Jul-2 2 Armani Woodsn. , [place], [place]. Referring Provider: Sg Young, [address] [place] [address], [address]. tel:[phone] [facility], [place], [place], [address], [place] tel:[phone] [place] No Information 2 Lomeli Bryce. , [place]. Referring Provider: Sg Young, [address] [place] [address], [address]. tel:[phone] [place], [place] [id number], [place], [address], [place] tel:[phone] [place] No Information 2 Lomeli Bryce. , [place]. Referring Provider: Sg Young, [address] [place] [address], [address]. tel:[phone] [facility] [address] [facility], [place], [address], [place] tel:[phone] [place] No Information 2 Lomeli Bryce. , [place]. Referring Provider: Sg Young, [address] [place] [address], [address]. tel:[phone] [place], [place] [id number] [facility], [place], [address], [place] tel:[phone] [place] No Information 2 Lomeli Bryce. , [place]. Referring Provider: Sg Young, [address] [place] [address], [address]. tel:[phone] [facility] [address] [address], [place], [address], [place] tel:[phone] [place] No Information 2 Lomeli Bryce. , [place], [place]. Referring Provider: Sg Young, [address] [place] [address], [address]. tel:[phone] [facility] [facility], [place], [address], [place] tel:[phone] [place] No Information 2 Lomeli Bryce. , [place], [place]. Referring Provider: Sg Young [address] [place] [address], [address]. tel:[phone] [place] [address] [address], [place], [place], [address], [place] tel:[phone] [place] No Information 2 Armani Wu. [place], [place]. Referring Provider: Sg Young, [address] [facility], [place], [address]. tel:[phone] [facility], [place], [address], [place] tel:[phone] [place] No Information 2 Armani Villalobos [place] Referring Provider: Sg Young, [address] [facility], [place], [address]. tel:[phone] [facility], [place], [place], [address], [place] tel:[phone] [place] No Information 1 Makler Luke. . [facility], [place], [place], [address], [place] tel:[phone] [place] No Information 1 Makler Luke. . [facility], [place], [place], [address], [place] tel:[phone] [place] No Information 1 Makler Luke. . [facility], [place], [place], [address], [place] tel:[phone] [place] No Information 1 Makler Luke. . [facility], [place], [address], [place] tel:[phone] [place] No Information 1 Makler Luke. . [facility], [place], [place], [address], [place] tel:[phone] [place] No Information 1 Makler Luke. . [facility], [place], [address], [place] tel:[phone] [place] No Information Sep-0 - 1 Armani Villalobos [place]. [facility], [place], [place], [address], tel:[phone] [place] No Information Sep-0 1 [place] Trixie. . [facility], [place], [address], [place] tel:[phone] [place] No Information Aug-3 1 [place] Trixie. . [facility], [place], [address], [place] tel:[phone] [place] No Information Aug-2 1 [place] Trixie. . [facility], [place], [place], [address], [place] tel:[phone] [place] No Information Aug-2 1 Armani Villalobos [place]. [facility], [place], [place], [address], [place] tel:[phone] [place] Unspecified disorder of synovium and tendon, right shoulderPain in right shoulder Dec-2 0- 8 Makler Luke. . [facility], [place], [address], [place] tel:[phone] [place] Unspecified disorder of synovium and tendon, right shoulderPain in right shoulder Dec- 8-201 8 Makler Luke. . [facility], [place], [place], [address], [place] tel:[phone] [place] Unspecified disorder of synovium and tendon, right shoulderPain in right shoulder Dec- 1-201 8 Makler Luke. . [facility], [place], [place], [address], [place] tel:[phone] [place] Unspecified disorder of synovium and tendon, right shoulderPain in right shoulder 8 Makler Luke. . [facility], [place], [address], [place] tel:[phone] [place] Unspecified disorder of synovium and tendon, right shoulderPain in right shoulder 8 Bee Santos. . [facility], [place], [place], [address], [place] tel:[phone] [place] Unspecified disorder of synovium and tendon, right shoulderPain in right shoulder 8 Makler Luke. . [facility], [place], [place], [address], tel:[phone] [place] Unspecified disorder of synovium and tendon, right shoulderPain in right shoulder 8 Makler Luke. . [facility], [place], [address], [place] tel:[phone] [place] Unspecified disorder of synovium and tendon, right shoulderPain in right shoulder 8 Makler Luke. . [facility], [place], [place], [address], [place] tel:[phone] [place] No Information 2 Taran Vincent. [address] [facility], [address], [place], [place], [facility], [place]. tel:[phone] [facility], [place], [place], [address], [place] tel:[phone] [place] LumbagoPain in joint involving pelvic region and thigh 2 Taran Vincent. [address] [facility], [address], [place], [place], [facility], [place]. tel:[phone] Family History Family Member Type Diagnosis Age At Onset No Information Payers Payer name Insurance type Covered democrat ID Authormalena head(s) [employer] CI [id number] Social History Type Description Quantity Date Captured [...]
--- OUTSIDE RECORDS SUMMARY | 2024-05-25 02:15 | XMS_ITS | Continuity of Care Document ---
Author Organization [employer] [facility] Address [address] [place] [address] [address] [place] [address] Phone Care Team Providers Care Clean Up Supervisor Name Role Phone Lomeli PT,MPT,ATC, Bryce [...] Evaluation Moderate Complexity Therapeutic Activities Therapeutic Exercise Neuromuscular Re-Ed Neuromuscular Re-Ed Therapeutic Exercise Neuromuscular Re-Ed Manual Therapy Therapeutic Exercise Manual Therapy Therapeutic Exercise Neuromuscular Re-Ed Therapeutic Exercise Neuromuscular Re-Ed Manual Therapy Manual Therapy Therapeutic Exercise Neuromuscular Re-Ed Neuromuscular Re-Ed Manual Therapy Therapeutic Exercise Manual Therapy Therapeutic Exercise Neuromuscular Re-Ed Neuromuscular Re-Ed Therapeutic Activities Manual Therapy Therapeutic Exercise Therapeutic Exercise Neuromuscular Re-Ed Therapeutic Activities Neuromuscular Re-Ed Therapeutic Activities Therapeutic Exercise Therapeutic Activities Neuromuscular Re-Ed Therapeutic Exercise Therapeutic Exercise Neuromuscular Re-Ed Therapeutic Activities Progress Note Therapeutic Activities Therapeutic Exercise Neuromuscular Re-Ed Therapeutic Activities Therapeutic Exercise Neuromuscular Re-Ed Therapeutic Exercise Neuromuscular Re-Ed Therapeutic Activities Therapeutic Exercise Neuromuscular Re-Ed Therapeutic Activities Therapeutic Exercise Neuromuscular Re-Ed Therapeutic Activities Therapeutic Activities Neuromuscular Re-Ed Therapeutic Exercise Therapeutic Activities Therapeutic Exercise Neuromuscular Re-Ed Therapeutic Exercise Neuromuscular Re-Ed Therapeutic Activities Neuromuscular Re-Ed Therapeutic Activities Therapeutic Exercise Therapeutic Exercise Neuromuscular Re-Ed Therapeutic Activities Therapeutic Activities Therapeutic Exercise Neuromuscular Re-Ed Therapeutic Exercise Neuromuscular Re-Ed Therapeutic Activities Neuromuscular Re-Ed Therapeutic Activities Therapeutic Exercise Therapeutic Exercise Neuromuscular Re-Ed Therapeutic Activities Therapeutic Activities Therapeutic Exercise Neuromuscular Re-Ed Therapeutic Exercise Therapeutic Activities PT Evaluation Moderate Complexity Neuromuscular Re-Ed Therapeutic Activities Therapeutic Exercise Therapeutic Exercise Neuromuscular Re-Ed Therapeutic Activities Therapeutic Activities Therapeutic Exercise Neuromuscular Re-Ed Therapeutic Exercise Therapeutic Activities Therapeutic Exercise Therapeutic Activities Therapeutic Activities Therapeutic Exercise Therapeutic Exercise Therapeutic Activities Therapeutic Exercise Therapeutic Activities Hot or Cold Pack Therapeutic Exercise Therapeutic Activities Hot or Cold Pack Therapeutic Exercise Therapeutic Activities PT Evaluation Moderate Complexity Therapeutic Activities Therapeutic [...] Diagnoses Date Provider Providers Copied on Encounter [facility] [facility], [place], [place], [id number], tel:[phone] Hawi No Information 4 Armani Villalobos [place], [place]. Referring Provider: Tiffanie Yousif [address], [place], [address]. tel:[phone] [facility], [place], [place], [address], tel:[phone] Hawi No Information 4 Armani Villalobos [place], [place]. Referring Provider: Tiffanie Yousfi [address], [place], [address]. tel:[phone] [facility], [place], [place], [address], tel:[phone] Hawi No Information 4 Armani Villalobos [place], [place]. Referring Provider: Tiffanie Yousif [address], [place], [address]. tel:[phone] [facility], [address], [place], [place], [address], [place] tel:[phone] Hawi No Information 4 Juni Briseno. . Referring Provider: Yvon Hyman, [address] [place], [address]. tel:[phone] [facility] [address], [place], [place], [address], [place] tel:[phone] Hawi No Information 4 Lomeli Bryce. , [place], [place]. Referring Provider: Yvon Hyman, [address] [place], [address]. tel:[phone] [facility], [place], [place], [address], [place] tel:[phone] Hawi No Information 4 Armani Wu. , [place], [place]. Referring Provider: Yvon Hyman, [address] [place], [address]. tel:[phone] [facility], [place], [place], [address], [place] tel:[phone] Hawi No Information 4 Lomeli Bryce. , [place], [place]. Referring Provider: Yvon Hyman, [address] [place], [address]. tel:[phone] [facility], [place], [place], [address], [place] tel:[phone] Hawi No Information 4 Armani Wu. , [place], [place]. Referring Provider: Yvon Hyman, [address] [place], [address]. tel:[phone] [facility], [place], [place], [address], [place] tel:[phone] Hawi No Information 4 Ohdallas Briseno. . Referring Provider: Yvon Hyman, [address] [place], [address]. tel:[phone] [facility] [facility], [place], [place], [address], [place] tel:[phone] Hawi No Information 4 Armani Villalobos , [place], [place]. Referring Provider: Yvon Hyman, [address] [place], [address]. tel:[phone] [facility] [address], [place], [place], [address], [place] tel:[phone] Hawi Unspecified urinary incontinence 4 Modglin Tera. . Referring Provider: Yvon Hyman, [address] [place], [address]. tel:[phone] [facility] [facility] [address], [place], [place], [address], [place] tel:[phone] Hawi No Information 2 Armani Villalobos , [place], [place]. Referring Provider: gS Young, [address] [place] [address], [address]. tel:[phone] [facility] [address], [id number], [place] tel:[phone] Hawi No Information 2 Armani Villalobos , [place], [place]. Referring Provider: Sg Young, [address] [place], [address]. tel:[phone] [facility] [facility], [place], [address], [place] tel:[phone] Hawi No Information 2 Armani Villalobos [place], [place]. Referring Provider: Sg Young, [address] [place], [address]. tel:[phone] [facility] [facility], [place], [address], [place] tel:[phone] Hawi No Information 2 Lomeli Bryce. , [place], [place]. Referring Provider: Sg Young, [address] [place] [address], [address]. tel:[phone] [place] [id number] [facility] [address], [place], [place], [address], [place] tel:[phone] Hawi No Information 2 Lomeli Bryce. , [place], [place]. Referring Provider: Sg Young, [address] [place] [address], [address]. tel:[phone] [place] [address] [place] [address], [place], [place], [address], [place] tel:[phone] Hawi No Information 0 2 Lomeli Bryce. , [place], [place]. Referring Provider: Sg Young [address] [place] [address], [address]. tel:[phone] [place] [id number] [place] [address], [place], [place], [address], [place] tel:[phone] Hawi No Information Sep-2 2 Lomeli Bryce. , [place], [place]. Referring Provider: Sg Young, [address] [place] [address], [address]. tel:[phone] [place] [id number] [place] [address], [place], [place], [address], [place] tel:[phone] Hawi No Information Sep-2 2 Lomeli Bryce. , [place], [place]. Referring Provider: Sg Young [address] [place] [address], [address]. tel:[phone] [place] [id number] [facility], [place], [place], [address], [place] tel:[phone] Hawi No Information Apr-2 0-202 2 Lomeli Bryce. , [place], [place]. Referring Provider: Sg Young [address] [place] [address], [address]. tel:[phone] [facility], [address], [place], [place], [address], [place] tel:[phone] Hawi No Information Apr-0 6-202 2 Lomeli Bryce. , [place], [place]. Referring Provider: Sg Young, [address] [place] [address], [place], [address]. tel:[phone] [place] [address] [address], [place], [place], [address], [place] tel:[phone] Hawi No Information Apr-0 4-202 2 Lomeli Bryce. , [place], [place]. Referring Provider: Sg Young, [address] [place] [address], [address]. tel:[phone] [place] [address] [place], [place] [address] [facility], [place], [address], [place] tel:[phone] Hawi No Information Mar-3 0-202 2 Lomeli Bryce. , [place], [place]. Referring Provider: Sg Young, [address] [place] [address], [place], [address]. tel:[phone] [place] [address] [address] [place] [address], [place], [place], [address], [place] tel:[phone] Hawi No Information Mar-2 3-202 2 Lomeli Bryce. , [place], [place]. Referring Provider: Sg Young, [address] [place] [address], [place], [address]. tel:[phone] [place] [address] [address] [facility] [address], [place], [address], [place] tel:[phone] Hawi No Information Mar-2 1-202 2 Lomeli Bryce. , [place], [place]. Referring Provider: Sg Young, [address] [place] [address], [place], [address]. tel:[phone] [place] [address] [facility], [place], [address], [place] tel:[phone] Hawi No Information Mar-1 6-202 2 Lomeli Bryce. , [place], [place]. Referring Provider: Sg Young, [address] [place] [address], [place], [address]. tel:[phone] [facility], [address], [place], [place], [address], [place] tel:[phone] Hawi No Information Aug-0 2 Armani Woodsn. , [place], [place]. Referring Provider: Sg Young, [address] [place] [address], [address]. tel:[phone] [facility], [address], [place], [address], [place] tel:[phone] Hawi No Information Aug-0 2 Armani Woodsn. , [place], [place]. Referring Provider: Sg Young, [address] [place] [address], [address]. tel:[phone] [facility] [address] [facility] [address], [place], [address], [place] tel:[phone] Hawi No Information b-2 2 Armani Woodsn. , [place], [place]. Referring Provider: Sg Young, [address] [place] [address], [address]. tel:[phone] [facility], [address] [facility] [address], [place], [place], [address], [place] tel:[phone] Hawi No Information b-2 2 Armani Wu. , [place], [place]. Referring Provider: Sg Young, [address] [place] [address], [place], [address]. tel:[phone] [facility], [address], [place], [place], [address], [place] tel:[phone] Hawi No Information Jul-2 2 Armani Woodsn. , [place], [place]. Referring Provider: Sg Young, [address] [place] [address], [address]. tel:[phone] [facility], [place], [place], [address], [place] tel:[phone] Hawi No Information 2 Lomeli Bryce. , [place]. Referring Provider: Sg Young, [address] [place] [address], [address]. tel:[phone] [place] [address], [place], [place], [address], [place] tel:[phone] Hawi No Information 2 Lomeli Bryce. , [place]. Referring Provider: Sg Young, [address] [place] [address], [address]. tel:[phone] [facility] [address] [facility] [address], [place], [place], [address], [place] tel:[phone] Hawi No Information 2 Lomeli Bryce. , [place]. Referring Provider: Sg Young, [address] [place] [address], [address]. tel:[phone] [place] [id number] [facility], [place], [address], [place] tel:[phone] Hawi No Information 2 Lomeli Bryce. , [place]. Referring Provider: Sg Young, [address] [place] [address], [address]. tel:[phone] [facility] [address] [place] [address], [place], [place], [address], [place] tel:[phone] Hawi No Information 2 Lomeli Bryce. , [place]. Referring Provider: Sg Young, [address] [place] [address], [address]. tel:[phone] [facility] [facility], [place], [address], [place] tel:[phone] Hawi No Information 2 Lomeli Bryce. , [place]. Referring Provider: Sg Young [address] [place] [address], [address]. tel:[phone] [place] [address] [address], [place], [place], [address], [place] tel:[phone] Hawi No Information 2 Armani Wu. [place]. Referring Provider: Sg Young, [address] [facility], [place], [address]. tel:[phone] [facility], [place], [place], [address], [place] tel:[phone] Hawi No Information 2 Armani Villalobos [place]. Referring Provider: Sg Young, [address] [facility], [place], [address]. tel:[phone] [facility], [place], [place], [address], [place] tel:[phone] Hawi No Information 1 Makler Luke. . [facility], [place], [place], [address], [place] tel:[phone] Hawi No Information 1 Makler Luke. . [facility], [place], [place], [address], [place] tel:[phone] Hawi No Information 1 Makler Luke. . [facility], [place], [place], [address], [place] tel:[phone] Hawi No Information 1 Makler Luke. . [facility], [place], [address], [place] tel:[phone] Hawi No Information 1 Makler Luke. . [facility], [place], [address], [place] tel:[phone] Hawi No Information 1 Makler Luke. . [facility], [place], [place], [address], [place] tel:[phone] Hawi No Information Sep-0 - 1 Armani Villalobos [place], [place]. [facility], [place], [place], [address], tel:[phone] Hawi No Information Sep-0 1 Scheldt Trixie. . [facility], [place], [place], [address], [place] tel:[phone] Hawi No Information Aug-3 1 Scheldt Trixie. . [facility], [place], [place], [address], [place] tel:[phone] Hawi No Information Aug-2 1 [place] Trixie. . [facility], [place], [place], [address], [place] tel:[phone] Hawi No Information Aug-2 1 Armani Villalobos [place], [place]. [facility], [place], [place], [address], [place] tel:[phone] Hawi Unspecified disorder of synovium and tendon, right shoulderPain in right shoulder Dec-2 0- 8 Makler Luke. . [facility], [place], [place], [address], [place] tel:[phone] Nora Unspecified disorder of synovium and tendon, right shoulderPain in right shoulder Dec- 8-201 8 Makler Luke. . [facility], [place], [place], [address], [place] tel:[phone] Nora Unspecified disorder of synovium and tendon, right shoulderPain in right shoulder Dec- 1-201 8 Makler Luke. . [facility], [place], [place], [address], [place] tel:[phone] Hawi Unspecified disorder of synovium and tendon, right shoulderPain in right shoulder 8 Makler Luke. . [facility], [place], [place], [address], [place] tel:[phone] Hawi Unspecified disorder of synovium and tendon, right shoulderPain in right shoulder 8 Bee Santos. . [facility], [place], [place], [address], [place] tel:[phone] Hawi Unspecified disorder of synovium and tendon, right shoulderPain in right shoulder 8 Makler Luke. . [facility], [place], [place], [address], tel:[phone] Hawi Unspecified disorder of synovium and tendon, right shoulderPain in right shoulder 8 Makler Luke. . [facility], [place], [place], [address], [place] tel:[phone] Hawi Unspecified disorder of synovium and tendon, right shoulderPain in right shoulder 8 Makler Luke. . [facility], [place], [place], [address], [place] tel:[phone] Nora No Information 2 Taran Vincent. [address] [facility], [address], [place], [place], [facility], [place]. tel:[phone] [facility], [place], [place], [address], [place] tel:[phone] Hawi LumbagoPain in joint involving pelvic region and thigh 2 Taran Vincent. [address] [facility], [address], [place], [place], [facility], [place]. tel:[phone] Family History Family Member Type Diagnosis Age At Onset No Information Payers Payer name Insurance type Covered constitution party ID Authormalena head(s) [employer] [place] [id number] Social History Type Description Quantity Date Captured [...]
--- OUTSIDE RECORDS SUMMARY | 2024-08-04 05:20 | XMS_ITS ---
Author Organization [facility] OF [facility] Address [address] [place] [address] Care Team Providers Care Emery Wheel Worker Name Role Phone Yvon Hyman M.D. Primary Care Provider Shandra vailaNasra Garciaie Unavailable [phone] REASON FOR VISIT DFC (Diabetic foot care) Encounters Encounter Location Date Provider Diagnosis 1 [facility] [address] [place] [address] 08/04/2024 Aparna Narayanan Type 2 diabetes jeremiah itus with other diabetic neurological complication E11.49 ; Onychogryphosis L60.2 and Nail dystrophy L60.3 Assessments Encounter Date Diagnosis (ICD Code) Assessment Notes Treatment Notes Treatment Clinical Notes Section Notes 08/04/2024 Type 2 diabetes mellitus with other diabetic neurological complication (ICD-10 - E11.49) Considering the associated comorbidities and physical exam findings today, this patient is at substantial risk of developing serious foot complications in the absence of regular and professional palliative foot care. 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 Next Appt Details Follow Up: 10-12 weeks or co ntact office PRN with any concerns, Reason: Provider Name:Aparna Narayanan, 06/29/2025 11:10:00 AM, [address], [address], [place], [address], Procedure Notes * Category Sub-Category Detail Notes PALLIATIVE FOOT CARE: Nail debride (45952): Debr idement of five or less mycotic and/or hypertrophic nails, utilizing manual and electric debridement the affected nails were reduced the nails in length and thickness with curettage of debris from nail margins performed as needed. Nail thickness reduced by:, 10% Dystrophic nail trim (G0127) All dystrop hic nails reduced in length and thickness with curettage of debris from nail margins as needed History and Physical Notes * HPI (History of Present Illness) Category Sub-Category Detail Notes Category Not es Primary reason for visit: Diabetic Foot Care: 69 y/o diabetic female RTO for diabetic foot care. Reports no acute issues with nails or calluses today. Reports last HA1c of [place] assisting with visit: HPI/Rooming: ..... Chart Prep Irshan Examination Category Sub-Category Detail Notes Category Not es General Examination Mental status: Cooperative, Oriented to person, place and time, Mood and affect: normal, Judgement and intellect: normal with appropriate response to questions Shoes today: XXXXXX Constitutional / Appearance: No acute di stress , Well nourished, Appropriate personal hygiene Lower Extremity VASCULAR: Venous insufficiency edema: absent, bilateral Pulses: DP and PT pulses, di minished, bilateral Temperature gradient: warm from proximal to distal, bilateral Pedal hair: absent, bilateral Capillary refill at distal toes less kait n 5 seconds, bilateral Lower Extremity NEURO: Monofilament test (10 gram pressure) Exam of 12/31/2023: revealed intact sensation to, entire foot, bilateral Vibration perception: Exam of 12/31/2023 : noted slightly diminished per evaluation with 128Hz tuning fork applied to distal hallux compared to ipsilateral medial malleolus @ bilateral feet General sensation appears intact, bilate ral Muscle tone within normal limits , bilateral Neurological status: States numbness in bilateral lower extremities. Lower Extremity MSK: Foot type: Bilateral l ower extremity exhibits relatively decreased medial arch Left lower extremity inspect ion and palpation: No palpable masses or nodules noted. No acute pain with palpation along the foot and ankle. Adequate range of motion noted to the joints. Right lower extremity inspec tion and palpation: No palpable masses or nodules noted. No acute pain with palpation along the foot and ankle. Adequate range of motion noted to the joints. Gait Gait unremarkable wi th normal posture, propulsion and balance Lower Extremity DERM: Skin: well hydra cal , no suspicious lesions, no open sores,without interdigital maceration, bilateral Nails: Nail plates of TA, T 5 and T6 are elongated, slightly thickened, slightly discolored, with mild subungual debris distally. Remaining nails appear elongated and dystrophic with abnormal shape, periungual debris, subungual hyperkeratosis. Hyperkeratotic lesions LEFT foot: no sig nificant hpk lesions noted Hyperkeratotic lesions RIGHT foot: , no significant hpk lesions noted Progress Notes * Regine TURCIOS LDOB:1955 (70 yo F)Acc No.[id number]:08/04/2024 Progress Note Patient: Regine Garcia Provider: Chad Narayanan DPM :1955 A ge:69 Y S ex:Female Date:08/04/2024 Address:[address] [place], [place] [id number] Pcp:Yvon Hyman M.D. Subjective: * Chief Complaints: * D FC (Diabetic foot care) * HPI: Kandy Chaves assisting with visit:: Chart Prep I alma. HPI/Rooming: . ..... P [facility] reason for visit:: Diabetic Foot Care: [age] y/o diabetic female RTO for diabetic foot care. Reports no acute issues with nails or calluses today. R eports last HA1c of. Objective: * Examination: G eneral Examination: Constitutional / Appearance: N o acute distress , Well nourished, Appropriate personal hygiene. Mental status: C ooperative, Oriented to person, place and time, Mood and affect: normal, Judgement and intellect: normal with appropriate response to questions. Shoes today: X XXXXX. L ower Extremity VASCULAR: : Pulses: D P and PT pulses, diminished, bilateral. Temperature gradient: w arm from proximal to distal, bilateral. Pedal hair: absent, bilateral. Venous insufficiency edema: a bsent, bilateral. Capillary refill at distal toes less than 5 seconds, bilateral. L ower Extremity DERM: : Skin: well hydrated , no suspicious lesions, no open sores,without interdigital maceration, bilateral. Nails: N ail plates of TA, T5 and T6 are elongated, slightly thickened, slightly discolored, with mild subungual debris distally. R emaining nails appear elongated and dystrophic with abnormal shape, periungual debris, subungual hyperkeratosis.. Hyperkeratotic lesions LEFT foot: no significant hpk lesions noted. Hyperkeratotic lesions RIGHT foot: , no significant hpk lesions noted. L ower Extremity NEURO: : Neurological status: S tates numbness in bilateral lower extremities. General sensation appears intact, bilateral. Muscle tone w ithin normal limits, bilateral. Monofilament test (10 gram pressure) E xam of 12/31/2023:?revealed intact sensation to, entire foot, bilateral. Vibration perception: E xam of 12/31/2023: n oted slightly diminished per evaluation with 128Hz tuning fork applied to distal hallux compared to ipsilateral medial malleolus @ bilateral feet . L ower Extremity MSK: : Gait Gait unremarkable with normal posture, propulsion and balance. Foot type: B ilateral lower extremity exhibits relatively decreased medial arch. Left lower extremity inspection and palpation: N o palpable masses or nodules noted. No acute pain with palpation along the foot and ankle. Adequate range of motion noted to the joints.. Right lower extremity inspection and palpation: N o palpable masses or nodules noted. N o acute pain with palpation along the foot and ankle. Adequate range of motion noted to the joints.. Assessment: * Assessment: 1. T ype 2 diabetes mellitus with other diabetic neurological complication - E11.49 (Primary)? 2. O nychogryphosis - L60.2 3 . N ail dystrophy - L60.3 Plan: * Treatment: * Procedures: P ALLIATIVE FOOT CARE:: Nail debride (58382): D ebridement of five or less mycotic and/or hypertrophic nails, utilizing manual and electric debridement the affected nails were reduced the nails in length and thickness with curettage of debris from nail margins performed as needed. Nail thickness reduced by:, 10%. Dystrophic nail trim (G0127) A ll dystrophic nails reduced in length and thickness with curettage of debris from nail margins as needed. * Procedure Codes: 1 1720 DEBRIDE NAIL, [id number] TRIMMING DYSTROPHIC NAILS ANY #, Modifiers: 59 * Follow Up: 1 0-12 weeks or contact office PRN with any concerns Billing Information: * Procedure Codes: 20825 DEBRIDE NAIL, 1-5. G0127 TRIMMING DYSTROPHIC NAILS ANY #. Modifiers: 59 * Electronic signature of Madelin Narayanan DPM on 05/12/2025 at 02:11 AM FUNERAL PRE ARRANGEMENT COUNSELOR Sign off status: Pending * Provider: Chad Narayanan DPM Date: 0 08/04/2024 Generated for Bea baker/Magaly/Saadia on: 1 07/12/2024 02:11 AM FUNERAL PRE ARRANGEMENT COUNSELOR
--- OUTSIDE RECORDS SUMMARY | 2024-08-18 04:40 | XMS_ITS ---
Author Organization 1 OF [facility] Address [address] [place] [address] Care Team Providers Care Basting Puller Name Role Phone Yvon Hyman M.D. Primary Care Provider Shandra vailable Aparna Narayanan Unavailable [phone] REASON FOR VISIT DFC (Diabetic foot care) Encounters Encounter Location Date Provider Diagnosis 1 [facility] [address] [place] [address] 08/18/2024 Aparna Narayanan Plan Of Treatment Next Appt Details Provider Name:Aparna Narayanan, 06/29/2025 11:10:00 AM, [address], [address], [place], [address], Progress Notes * Regine TURCIOS LDOB:1955 (70 yo F)Acc No.[id number]:08/18/2024 Progress Note Patient: Regine Garcia Provider: Chad Narayanan DPM :1955 A ge:69 Y S ex:Female Date:08/18/2024 Address:[address] [place] [id number] Pcp:Yvon Hyman M.D. Subjective: * Chief Complaints: * D FC (Diabetic foot care) * Electronic signature of Madelin Narayanan DPM on 05/12/2025 at 02:10 AM BLOCKLAYER Sign off status: Pending * Provider: Chad Narayanan DPM Date: 0 08/18/2024 Generated for Bea baker/Magaly/Saadia on: 1 07/12/2024 02:10 AM BLOCKLAYER
--- OUTSIDE RECORDS SUMMARY | 2025-01-12 05:40 | XMS_ITS ---
Author Organization [facility] Address [address] [place] [address] Care Team Providers Care Fire Marshal Refinery Name Role Phone Yvon Hyman M.D. Primary Care Provider Shandra vailable Aparna Narayanan Unavailable [phone] REASON FOR VISIT DFC (Diabetic foot care) Encounters Encounter Location Date Provider Diagnosis [facility] [address] [place] [address] 01/12/2025 Aparna Narayanan Plan Of Treatment Next Appt Details Provider Name:Aparna Narayanan, 06/29/2025 11:10:00 AM, [address], [place], [address], Progress Notes * Regine TURCIOS LDOB:1955 (70 yo F)Acc No.[id number]:01/12/2025 Progress Note Patient: Regine Garcia Provider: Chad Narayanan DPM :1955 A ge:69 Y S ex:Female Date:01/12/2025 Address:[address] [place], [place] [address] Pcp:Yvon Hyman M.D. Subjective: * Chief Complaints: * D FC (Diabetic foot care) * Electronic signature of Madelin Narayanan DPM on 05/12/2025 at 02:10 AM FIRE EATER Sign off status: Pending * Provider: Chad Narayanan DPM Date: 0 01/12/2025 Generated for Bea baker/Magaly/Saadia on: 1 07/12/2024 02:10 AM FIRE EATER
--- OUTSIDE RECORDS SUMMARY | 2025-03-30 08:00 | XMS_ITS ---
Author Organization 1 OF [facility] Address [address] [place] [address] Care Team Providers Care Yield Analyst Name Role Phone Yvon Hyman M.D. Primary Care Provider Shandra vailable Aparna Narayanan Unavailable [phone] REASON FOR VISIT DFC (Diabetic foot care) Encounters Encounter Location Date Provider Diagnosis 1 OF [facility] [address] [place] [address] 03/30/2025 Aparna Narayanan Plan Of Treatment Next Appt Details Provider Name:Aparna Narayanan, 06/29/2025 11:10:00 AM, [address], [place], [address], Progress Notes * Regine TURCIOS LDOB:1955 (70 yo F)Acc No.[id number]:03/30/2025 Progress Note Patient: Regine Garcia Provider: Chad Narayanan DPM :1955 A ge:70 Y S ex:Female Date:03/30/2025 Address:[address] [place], [place] [address] Pcp:Yvon Hyman M.D. Subjective: * Chief Complaints: * D FC (Diabetic foot care) * Electronic signature of Madelin Narayanan DPM on 05/12/2025 at 02:10 AM PACKER Sign off status: Pending * Provider: Chad Narayanan DPM Date: 1 Generated for Bea baker/Magaly/Saadia on: 07/12/2024 02:10 AM PACKER
--- OUTSIDE RECORDS SUMMARY | 2025-04-14 05:40 | XMS_ITS ---
Author Organization 1 OF [facility] Address [address] [facility] [address] [place] [address] Care Team Providers Care It Applications Manager Name Role Phone Yvon Hyman M.D. Primary Care Provider Shandra vailable NarayananNasra sahuie Unavailable [phone] REASON FOR VISIT DFC (Diabetic foot care) Medications Medication SIG (Take, Route, Fr equency, Duration) Notes Start Date End Date Status metFORMIN HCl Active amLODIPine Besylate Active Simvastatin Active hydroCHLOROthiazide Active Omeprazole Active Aspirin Active Multivitamin Active Cyclobenzaprine HCl Active Meloxicam Active Vital Signs Height 67 in 04/14/2025 Weight 197 lbs 04/14/2025 BMI 30.85 kg/m2 04/14/2025 Encounters Encounter Location Date Provider Diagnosis 1 OF [facility] [email or web address] [address] 04/14/2025 Aparna Narayanan Type 2 diabetes jeremiah itus with other diabetic neurological complication E11.49 ; Onychogryphosis L60.2 ; Nail dystrophy L60.3 and Anesthesia of skin R20.0 Assessments Encounter Date Diagnosis (ICD Code) Assessment Notes Treatment Notes Treatment Clinical Notes Section Notes 04/14/2025 Type 2 diabetes mellitus with other diabetic neurological complication (ICD-10 - E11.49) Considering the associated comorbidities and physical exam findings today, this patient is at substantial risk of developing serious foot complications in the absence of regular and professional palliative foot care.She was advised that her sciatica is likely causing some of her symptoms in the feet. 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 Plan Of Treatment Treatment Notes Assessment Notes Type 2 diabetes mellitus wit h other diabetic neurological complication Considering the associated comorbidities and physical exam findings today, this patient is at substantial risk of developing serious foot complications in the absence of regular and professional palliative foot care.She was advised that her sciatica is likely causing some of her symptoms in the feet. Anesthesia of skin Evaluation today inc luded a review of medical history, review of [...] control to prevent worsening of the symptoms. Next Appt Details Follow Up: 10-12 weeks or co ntact office PRN with any concerns, Reason: Provider Name:Aparna Narayanan, 06/29/2025 11:10:00 AM, [address] [facility] [address], [place], [address], History and Physical Notes * HPI (History of Present Illness) Category Sub-Category Detail Notes Category Not es Primary reason for visit: Diabetic Foot Care: 69 y/o diabetic female RTO for diabetic foot care. Reports no acute issues with nails or calluses today. Reports last HA1c of 7.6 Feb 2025 MA assisting with visit: HPI/Rooming: baldo Chart Prep baldo Examination Category Sub-Category Detail Notes Category Not es General Examination Mental status: Cooperative, Oriented to person, place and time, Mood and affect: normal, Judgement and intellect: normal with appropriate response to questions Shoes today: tennis shoes Constitutional / Appearance: No acute di stress , Well nourished, Appropriate personal hygiene Lower Extremity VASCULAR: Venous insufficiency e fadumo: mild, bilateral lower legs Pulses: DP and PT pulses, di minished, bilateral Temperature gradient: relatively warm fr om proximal to distal, bilateral Pedal hair: absent, [...] normal limits , bilateral Neurological status: States numbness/ ti ngling in ball of feet Lower Extremity MSK: Muscle strength: 5/5, all [...] propulsion and balance Lower Extremity DERM: Skin: no suspici ous lesions, no open sores,without interdigital maceration, bilateral Nails: Nail plates of TA, T 5 and T6 are elongated, slightly thickened, slightly discolored, with mild subungual debris distally. Remaining nails appear elongated and dystrophic with abnormal shape, periungual debris, subungual hyperkeratosis. Hyperkeratotic lesions LEFT foot: no sig nificant hpk lesions noted Hyperkeratotic lesions RIGHT foot: no si gnificant hpk lesions noted Progress Notes * Regine TURCIOS LDOB:1955 (70 yo F)Acc No.[id number]:04/14/2025 Progress Note Patient: Regine Garcia Provider: Chad Narayanan DPM :1955 A ge:70 Y S ex:Female Date:04/14/2025 Address:[address] [place], [place] [address] Pcp:Yvon Hymna M.D. Subjective: * Chief Complaints: * D FC (Diabetic foot care) * HPI: Kandy Sahu assisting with visit:: Chart Prep kendall pugh. HPI/Rooming: kendall ferrara reason for visit:: Diabetic Foot Care: [age] y/o diabetic female RTO for diabetic foot care. Reports no acute issues with nails or calluses today. R eports last HA1c of 7.6 Feb 2025. * Medical History: asthma, diabetes, hypertension, high cholesterol, GERD, Sciatica Medical History Verified * Surgical History: bilateral bunion Surgical History verified. * Hospitalization/Major Diagno stic Procedure: No Hospitalization Documented. Hospitalization Verified. * Family History: F amily History Verified.. diabetes, RA, high blood pressure. * Social History: Social History Verified. No Social History documented. * Medications: T akingCyclobenzaprine HCl Meloxicam Aspirin Multivitamin Simvastatin hydroCHLOROthiazide metFORMIN HCl amLODIPine Besylate Omeprazole Taking Cyclobenzaprine HCl Taking Meloxicam Taking Aspirin Taking Multivitamin Taking Simvastatin Taking hydroCHLOROthiazide Taking metFORMIN HCl Taking amLODIPine Besylate Taking Omeprazole * Allergies: y esAllergies Verified. Objective: * Vitals: W t:197lbs, Wt-k.36 kg, Ht: 67 in, BMI:30.85Index. * Examination: G eneral Examination: Constitutional / Appearance: N o acute distress , Well nourished, Appropriate personal hygiene. Mental status: C ooperative, Oriented to person, place and time, Mood and affect: normal, Judgement and intellect: normal with appropriate response to questions. Shoes today: t zen shoes. L ower Extremity VASCULAR: : Pulses: D P and PT pulses, diminished, bilateral. Temperature gradient: r elatively warm from proximal to distal, bilateral. Pedal hair: absent, bilateral. Venous insufficiency edema: m ild, bilateral lower legs.? Capillary refill at distal toes less than 5 seconds, bilateral. L ower Extremity DERM: : Skin: n o suspicious lesions, no open sores,without interdigital maceration, bilateral. Nails: N ail plates of TA, T5 and T6 are elongated, slightly thickened, slightly discolored, with mild subungual debris distally. R emaining nails appear elongated and dystrophic with abnormal shape, periungual debris, subungual hyperkeratosis.. Hyperkeratotic lesions LEFT foot: n o significant hpk lesions noted. Hyperkeratotic lesions RIGHT foot: n o significant hpk lesions noted. L ower Extremity NEURO: : Neurological status: S tates numbness/ tingling in ball of feet. General sensation appears intact, bilateral. Muscle tone w ithin normal limits, bilateral. Monofilament test (10 gram pressure) E xam of 08/25/2024: r evealed intact sensation to, entire foot, bilateral. Vibration perception: E xam of 08/25/2024:noted intact per evaluation with 128Hz tuning fork [...] N ail dystrophy - L60.3 4 . A nesthesia of skin - R20.0 Plan: * Treatment: 2. A nesthesia of skin Notes: Evaluation today included a review of medical [...] control to prevent worsening of the symptoms. * Procedure Codes: 1 1720 [address]BR[address] NAIL, 1-4H0192 TRIMMING DYSTROPHIC NAILS ANY #, Modifiers: 59 M1372 Mst rec gsa >=7 and<8 * Preventive Medicine: Counseling: C are goal follow-up plan: BMI counseling provided to patient:?Lifestyle education Screenings: F ALL RISK SCREENING Fall Risk Assessment: N o falls in the past year * Follow Up: 1 0-12 weeks or contact office PRN with any concerns Billing Information: * Procedure Codes: 88957 DEBRIDE NAIL, 1-5. G0127 TRIMMING DYSTROPHIC NAILS ANY #. Modifiers: 59 M1372 Mst rec gsa >=7 and<8. * Electronic signature of Madelin Narayanan DPM on 05/12/2025 at 02:11 AM VMWARE ADMINISTRATOR Sign off status: Pending * Provider: Chad Narayanan DPM Date: Generated for Bea baker/Magaly/Аннаitting on: 07/12/2024 02:11 AM VMWARE ADMINISTRATOR
[2025-05-02 15:05] VITALS: BMI 31.3
--- OUTSIDE RECORDS SUMMARY | 2025-05-12 02:10 | XMS_ITS | Patient Health Record ---
Author Organization 1 OF [facility] Address [address] [facility] [address] [place] [address] Care Team Providers Care Medical Sales Specialist Name Role Phone Yvon Hyman M.D. Primary Care Provider Shandra dellAparna Nieto Unavailable [phone] Allergies No Known Allergies Reason For Referral No Information Medications Medication SIG (Take, Route, Fr equency, Duration) Notes Start Date End Date Status metFORMIN HCl Active amLODIPine Besylate Active Simvastatin Active hydroCHLOROthiazide Active Aspirin Active Multivitamin Active Cyclobenzaprine HCl Active Meloxicam Active Omeprazole Active Social History Tobacco Use: Social History [...] Status W/U Status Risk Notes Problem Porokeratosis (882746868) Porokeratosis (Q82.8) Active confirmed Problem Neurologic disorder associated with type II diabetes mellitus (655313056) Type 2 diabetes mellitus with other diabetic neurological complication (E11.49) Active confirmed Problem Type II diabetes mellitus without complication (939095140) Type 2 diabetes mellitus without complication, without long-term current use of insulin (E11.9) Active confirmed Vital Signs Height 67 in 04/14/2025 Weight 197 lbs 04/14/2025 BMI 30.85 kg/m2 04/14/2025 Encounters Encounter Location Date Provider Diagnosis [facility] [address] [place] [address] 04/14/2025 Aparna Narayanan Type 2 diabetes jeremiah itus with other diabetic neurological complication E11.49 ; Onychogryphosis L60.2 ; Nail dystrophy L60.3 and Anesthesia of skin R20.0 1 OF [place] [address] [place] [address] 05/26/2024 Aparna Narayanan Type 2 diabetes jeremiah itus with other diabetic neurological complication E11.49 ; Onychogryphosis L60.2 and Nail dystrophy L60.3 1 OF [place] [address] [place] [address] 08/25/2024 Aparna Narayanan Type 2 diabetes jeremiah itus with other diabetic neurological complication E11.49 ; Onychogryphosis L60.2 ; Nail dystrophy L60.3 and Callus of foot L84 1 OF [place] [address] [place] [address] 11/03/2024 Aparna Narayanan Type 2 diabetes jeremiah itus with other diabetic neurological complication E11.49 ; Onychogryphosis L60.2 and Nail dystrophy L60.3 1 OF [place] [address] [place] [address] 01/19/2025 Aparna Narayanan Type 2 diabetes jeremiah [...] of her symptoms in the feet. 04/14/2025 Type 2 diabetes mellitus with other diabetic neurological complication (ICD-10 - E11.49) Considering the associated comorbidities and physical exam findings today, this patient is at substantial risk of developing serious foot complications in the absence of regular and professional palliative foot care.She was advised that her sciatica is likely causing some of her symptoms in the feet. 04/14/2025 Onychogryphosis (ICD-10 - L60.2) 01/19/2025 Nail dystrophy (ICD-10 - L60.3) 11/03/2024 [...] control to prevent worsening of the symptoms. 04/14/2025 Nail dystrophy (ICD-10 - L60.3) 04/14/2025 [...] Narayanan, 06/29/2025 11:10:00 AM, [address], [facility] [address], [place], [address], Insurance Providers Payer Name Payer Address Payer Phone Subscriber Number Group Number Insured Name Patient Relationship to Insured Coverage Start Date Coverage End Date [facility] [address] [address] [place] [address] [phone] [id number] Regine Brannon Self - patient is the insured Medical (General) History Medical History History ICD Code asthma, diabetes, hypertension, high cho lesterol, GERD, Sciatica Surgical History Surgery Date(Month/Year) bilateral bunion
--- OUTSIDE RECORDS SUMMARY | 2025-05-12 02:10 | XMS_ITS | Clinical Summary ---
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
[2025-05-12 09:51] VITALS: BP 126/72; PULSE 86; RESP 18; TEMP 35.6; O2SAT 100; BMI 29.7
[2025-05-12] MEDS: LACTATED RINGERS 1,000 ML 150 ML IV CONT (10:06)
--- NOTE | 2025-05-12 10:26 | WPDANESEPPF ---
Anes - Initial Pre Proc Eval Procedure: Operation Date: 05/12/25 11:00 Proposed Procedures p Screening Colonoscopy - Daniel Medrano MD Date/Time: 05/12/25 10:26 Surgeon: Daniel Medrano MD Pre Op Diagnosis: Encounter for screening for malignant neoplasm of Patient Data Age: 70 Gender: F Height: 1.68 m Weight: 83.5 kg Last Vital Signs Temp 35.6 C L 05/12/25 09:51 Pulse 86 05/12/25 09:51 Resp 18 05/12/25 09:51 BP 126/72 05/12/25 09:51 Pulse Ox 100 05/12/25 09:51 O2 Del Method Room Air 05/12/25 09:51 Allergies Allergy/AdvReac Type Severity Reaction Status Date / Time No Known Allergies Allergy Verified 05/12/25 09:50 Home Medications ?Medication ?Instructions ?Recorded ?Confirmed ?Type lancets 30 gauge (OneTouch Delica #100 ea 07/27/19 05/02/25 Rx Lancets) cetirizine 10 mg capsule (Zyrtec) 10 mg PO DAILY PRN Allergic 02/18/22 05/12/25 History Symptoms blood sugar diagnostic (OneTouch See Rx Instructions .Route 11/27/22 05/02/25 Rx Verio test strips) .COMPLEX #100 ea blood sugar diagnostic (Accu-Chek #100 ea 01/10/23 05/02/25 Rx Guide test strips) blood-glucose meter (Accu-Chek #1 ea 01/10/23 05/02/25 Rx Guide Me Glucose Meter) CPAP #1 ea 03/26/23 05/02/25 Rx flash glucose scanning reader #1 ea 10/07/23 05/02/25 Rx (FreeStyle Se 2 [place]) simvastatin 20 mg tablet 20 mg PO QHS #90 tabs 01/22/24 05/12/25 Rx blood-glucose,associate [employer] criminal justice,cont #1 ea 06/24/24 05/02/25 Rx (FreeStyle Se 3 [place]) aspirin 81 mg tablet,delayed 81 mg PO DAILY 07/05/24 05/12/25 History release jqfzhzks-dbt-ckgjk ac 400 1 tablet PO DAILY 07/05/24 05/12/25 History mcg-calcium carb 500 mg-vit K1 20 mcg tablet (Women's 50 Plus Multivitamin) brimonidine 0.2 % eye drops 1 drp EACH EYE Q12H 09/02/24 05/12/25 History timolol maleate 0.5 % eye drops 1 drp EACH EYE Q12H 09/02/24 05/12/25 History meloxicam 15 mg tablet 15 mg PO DAILY #90 tabs 10/27/24 05/12/25 Rx omeprazole 40 mg capsule,delayed 40 mg PO DAILY #90 caps 11/19/24 05/12/25 Rx release hydrochlorothiazide 25 mg tablet 25 mg PO DAILY #90 ea 11/24/24 05/12/25 Rx irbesartan 300 mg tablet 300 mg PO DAILY #90 tabs 12/16/24 05/12/25 Rx latanoprost 0.005 % eye drops 1 drp EACH EYE QPM 12/16/24 05/12/25 History cyclobenzaprine 10 mg tablet 10 mg PO TID PRN muscle spasm #30 01/17/25 05/12/25 Rx tabs metformin 500 mg tablet See Rx Instructions .Route 03/10/25 05/12/25 Rx .COMPLEX #180 tabs semaglutide 3 mg tablet (Rybelsus) 3 mg PO DAILY 03/23/25 05/12/25 History blood-glucose sensor (FreeStyle #7 ea 05/06/25 Rx Se 3 Plus Sensor device) Laboratory Tests 05/12/25 10:01 POC Capillary Glucose 167 H mg/dl (65-105) Patient hx anesthesia problems: none Family hx anesthesia problems: none Results Review: All pre-operative results and documents have been reviewed as part of the pre-operative evaluation. [facility] Past Medical History Medical History ROMELIA (obstructive sleep apnea) Arthritis Hyperlipidemia Benign essential hypertension Gastroesophageal reflux disease without esophagitis Type 2 diabetes mellitus without complication, without long-term current use of insulin Surgical History Surgical History H/O hemorrhoidectomy H/O: hysterectomy History of bunionectomy of both great toes Family History Family History Other Cerebrovascular accident Diabetes mellitus Family history of malignant neoplasm Hypertension Social History Social History Smoking status: Never smoker Alcohol intake: never Substance use: never Substance use type: does not use Do You Feel Safe in your Home?: Yes Lack of Transportation: YES Lack of Food: Never True Current Housing: I Have Housing Concerned About Future Housing: No Difficulty Paying Gas/Electric Bills: No Difficulty Paying for Meds: No Currently Unemployed: No Education: Decline to Answer Difficulty w/ Childcare or Family Care: No Living arrangements: with family Additional living arrangements comments: Occupation/Education: occupation Gender identity (if verbalized by the patient): Female Sexual Orientation (if Verbalized by the Patient): Straight or Heterosexual Anes - Eval Final PreProcedure Day of Procedure 05/12/25 10:26 Patient weight: overweight Heart: regular rate and rhythm and other (known palpitations) Lungs: normal air movement Airway: Mallampati scale class 1 Neurological: alert and oriented Last oral intake: >/= 8 hours ASA classification: III Emergent: no Anesthetic plan: proceed Anesthesia type and monitoring: general GIVS and standard monitoring Results Review: All pre-operative results and documents have been reviewed as part of the pre-operative evaluation. Informed Consent: The patient's anesthetic plan and its attendant risks and benefits were discussed with the patient/family/POA. Questions were solicited and answers provided to the satisfaction of the patient/family/POA.
--- NOTE | 2025-05-12 11:02 | PM.IMHP ---
H&P: HPI History of Present Illness Date/Time: 05/12/25 11:02 Chief Complaint: Screening colonoscopy Narrative: This is the patient's 2nd screen colonoscopy. There are no GI symptoms and there is no family history of colorectal cancer. Review of Systems Review of Systems: All systems reviewed & are unremarkable except as noted in HPI and below PMFSH Past Medical History Medical History ROMELIA (obstructive sleep apnea) Arthritis Hyperlipidemia Benign essential hypertension Gastroesophageal reflux disease without esophagitis Type 2 diabetes mellitus without complication, without long-term current use of insulin Surgical History Surgical History H/O hemorrhoidectomy H/O: hysterectomy History of bunionectomy of both great toes Family History Family History Other Cerebrovascular accident Diabetes mellitus Family history of malignant neoplasm Hypertension Social History Social History Smoking status: Never smoker Alcohol intake: never Substance use: never Substance use type: does not use Do You Feel Safe in your Home?: Yes Lack of Transportation: YES Lack of Food: Never True Current Housing: I Have Housing Concerned About Future Housing: No Difficulty Paying Gas/Electric Bills: No Difficulty Paying for Meds: No Currently Unemployed: No Education: Decline to Answer Difficulty w/ Childcare or Family Care: No Living arrangements: with family Additional living arrangements comments: Occupation/Education: occupation Gender identity (if verbalized by the patient): Female Sexual Orientation (if Verbalized by the Patient): Straight or Heterosexual Meds Home Medications and Allergies Home Medications ?Medication ?Instructions ?Recorded ?Confirmed ?Type lancets 30 gauge (OneTouch Delica #100 ea 07/27/19 05/02/25 Rx Lancets) cetirizine 10 mg capsule (Zyrtec) 10 mg PO DAILY PRN Allergic 02/18/22 05/12/25 History Symptoms blood sugar diagnostic (OneTouch See Rx Instructions .Route 11/27/22 05/02/25 Rx Verio test strips) .COMPLEX #100 ea blood sugar diagnostic (Accu-Chek #100 ea 01/10/23 05/02/25 Rx Guide test strips) blood-glucose meter (Accu-Chek #1 ea 01/10/23 05/02/25 Rx Guide Me Glucose Meter) CPAP #1 ea 03/26/23 05/02/25 Rx flash glucose scanning reader #1 ea 10/07/23 05/02/25 Rx (FreeStyle Se 2 [place]) simvastatin 20 mg tablet 20 mg PO QHS #90 tabs 01/22/24 05/12/25 Rx blood-glucose,electrode cleaning machine operator,cont #1 ea 06/24/24 05/02/25 Rx (FreeStyle Se 3 [place]) aspirin 81 mg tablet,delayed 81 mg PO DAILY 07/05/24 05/12/25 History release pssgkdpz-git-mglac ac 400 1 tablet PO DAILY 07/05/24 05/12/25 History mcg-calcium carb 500 mg-vit K1 20 mcg tablet (Women's 50 Plus Multivitamin) brimonidine 0.2 % eye drops 1 drp EACH EYE Q12H 09/02/24 05/12/25 History timolol maleate 0.5 % eye drops 1 drp EACH EYE Q12H 09/02/24 05/12/25 History meloxicam 15 mg tablet 15 mg PO DAILY #90 tabs 10/27/24 05/12/25 Rx hydrochlorothiazide 25 mg tablet 25 mg PO DAILY #90 ea 11/24/24 05/12/25 Rx irbesartan 300 mg tablet 300 mg PO DAILY #90 tabs 12/16/24 05/12/25 Rx latanoprost 0.005 % eye drops 1 drp EACH EYE QPM 12/16/24 05/12/25 History cyclobenzaprine 10 mg tablet 10 mg PO TID PRN muscle spasm #30 01/17/25 05/12/25 Rx tabs metformin 500 mg tablet See Rx Instructions .Route 03/10/25 05/12/25 Rx .COMPLEX #180 tabs semaglutide 3 mg tablet (Rybelsus) 3 mg PO DAILY 03/23/25 05/12/25 History blood-glucose sensor (FreeStyle #7 ea 05/06/25 Rx Se 3 Plus Sensor device) omeprazole 40 mg capsule,delayed 40 mg PO DAILY #90 caps 05/12/25 Rx release Allergies Allergy/AdvReac Type Severity Reaction Status Date / Time No Known Allergies Allergy Verified 05/12/25 09:50 Vital Signs Vital Signs - 24 hr 05/12/25 09:51 Temperature 96.0 F L Pulse Rate 86 Respiratory Rate 18 Blood Pressure 126/72 Pulse Oximetry 100 Oxygen Delivery Room Air Exam Const: General: cooperative and healthy appearing Resp: Effort & Inspection: normal respiratory effort and able to speak in complete sentences Auscultation: clear to auscultation bilaterally Cardio: Rate: regular rate Rhythm: regular rhythm GI: Inspection: normal to inspection GI Palp: No No hepatosplenomegaly present Auscultation: normal bowel sounds Rectal Exam: deferred Skin: General skin exam: normal color Psych: Appearance: grossly normal Mental Status: mental status grossly normal Assessment and Plan Assessment and plan (1) Encounter for screening colonoscopy: Code(s): Z12.11 - Encounter for screening for malignant neoplasm of colon Status: Acute Assessment and Plan: The patient is deemed a good candidate for the procedure. Consent signed. Will proceed.
[2025-05-12 11:26] VITALS: BP 91/58; PULSE 82; RESP 22; O2SAT 98
[2025-05-12 11:36] VITALS: BP 97/65; PULSE 78; RESP 22; O2SAT 100
[2025-05-12 11:46] VITALS: BP 97/65; PULSE 78; RESP 22; O2SAT 100
[2025-05-12 11:56] VITALS: BP 105/70; PULSE 72; RESP 17; O2SAT 100
== END 2025-05-12 12:20 | disposition home or self-care (01) ==
PROVIDERS: PCP Family Medicine; Visit Provider Internal Medicine Gastroenterology
PROC: 0DJD8ZZ Inspection of Lower Intestinal Tract, Via Natural or Artificial Opening Endoscopic (ICD-10-PCS; CPT 45378; principal; 2025-05-12 11:00)
DX: Z12.11 Encounter for screening for malignant neoplasm of colon (principal); E78.5 Hyperlipidemia, unspecified; I10 Essential (primary) hypertension; K21.9 Gastro-esophageal reflux disease without esophagitis; E11.9 Type 2 diabetes mellitus without complications; G47.33 Obstructive sleep apnea (adult) (pediatric); Z79.82 Long term (current) use of aspirin; Z79.84 Long term (current) use of oral hypoglycemic drugs; Z99.89 Dependence on other enabling machines and devices; Z98.890 Other specified postprocedural states; Z80.9 Family history of malignant neoplasm, unspecified
CPT/HCPCS: 45378; 82948; J2003; J2704; J7120